=== PATIENT | male | born 1965 | race Caucasian/White ===

== ENCOUNTER 2017-08-29 14:04 | Inpatient (IN) | payer OTHER ==
--- NOTE | 2017-08-29 20:04 | HP ---
Admission ROS S - [facility] Chief Complaint: I WANT TO GO TO REHAB Allergies/Adverse Reactions: Allergies Allergy/AdvReac Type Severity Reaction Status Date / Time shellfish derived Allergy Severe Swelling Verified 08/29/17 18:12 No Known Drug Allergies Allergy Verified 08/29/17 18:12 History of Present Illness: 52 YEARS OLD MALE WITH LONG HISTORY OF XANAX NICOTINE DEPENDENCE HAS HEPATITIS C GERD HYPERTENSION HYPERLIPIDEMIA HEART ATTACK 2012 DEPRESSION METHADONE MAINTENANCE PROGRAM 60 MG PO DAILY IS ADMITTED TO REHAB Exam Limitations: No Limitations - Ebola screening Have you traveled outside of the country in the last 21 days: No Have you had contact with anyone from an Ebola affected area: No Have you been sick,other than usual withdrawal symptoms: No Do you have a fever: No - Review of Systems Constitutional: Weight Stable EENT: reports: No Symptoms Reported Respiratory: reports: No Symptoms reported Cardiac: reports: No Symptoms Reported, Other (HEART ATTACK 2012 CARDIAC STENT X 2) GI: reports: Indigestion : reports: No Symptoms Reported Musculoskeletal: reports: No Symptoms Reported Integumentary: reports: No Symptoms Reported Neuro: reports: No Symptoms reported Endocrine: reports: No Symptoms Reported Hematology: reports: No Symptoms Reported Psychiatric: reports: Judgement Intact, Orientated x3, Depressed Other Systems: Reviewed and Negative Patient History - Patient Medical History Hx Anemia: No Hx Asthma: No Hx Chronic Obstructive Pulmonary Disease (COPD): No Hx Cancer: No Hx Cardiac Disorders: Yes (CAD) Hx Congestive Heart Failure: No Hx Hypertension: Yes Hx Hypercholesterolemia: Yes (on med) Hx Pacemaker: No HX Cerebrovascular Accident: No Hx Seizures: No Hx Dementia: No Hx Diabetes: No Hx Gastrointestinal Disorders: Yes Hx Liver Disease: No Hx Genitourinary Disorders: No Hx Sexually Transmitted Disorders: No Hx Renal Disease (ESRD): No Hx Thyroid Disease: No Hx Human Immunodeficiency Virus (HIV): No (last 02/17/15 to 02/21/15 negative) Hx Hepatitis C: Yes Hx Depression: Yes Hx Suicide Attempt: No (denies) Hx Bipolar Disorder: No Hx Schizophrenia: No - Patient Surgical History Past Surgical History: Yes Hx Neurologic Surgery: No Hx Cataract Extraction: No Hx Cardiac Surgery: Yes (2010- [facility] - 2 stents ) Hx Lung Surgery: No Hx Breast Surgery: No Hx Breast Biopsy: No Hx Abdominal Surgery: No Hx Appendectomy: No Hx Cholecystectomy: No Hx Genitourinary Surgery: No Hx Orthopedic Surgery: No Anesthesia Reaction: No - PPD History Previous Implant?: Yes Documented Results: Negative w/o proof Implanted On Prior R Admission?: No Date: 07/18/16 Results: negative PPD to be Administered?: Yes - Smoking Cessation Smoking history: Current every day smoker Have you smoked in the past 12 months: Yes Aproximately how many cigarettes per day: 20 Cigars Per Day: 0 Hx Chewing Tobacco Use: No Initiated information on smoking cessation: Yes 'Breaking Loose' booklet given: 08/29/17 - Substance & Tx. History Hx Alcohol Use: No Hx Substance Use: Yes Substance Use Type: Tranquilizers Hx Substance Use Treatment: Yes (08/2017 [facility]) - Substances Abused Alprazolam (Xanax) Route: Oral Frequency: 3-6 times per week Amount used: 2 MG Age of first use: 27 Date of Last Use: 08/21/17 Family Disease History - Family Disease History Family Disease History: Heart Disease: Father (s/p mi at age 44), Mother (qadruple bypass ), Other: Sister (HIV) Admission Physical Exam S - Vital Signs Vital Signs: Vital Signs - 24 hr 08/29/17 08/29/17 17:27 17:43 Temperature 96 F L 97.8 F Pulse Rate 74 88 Respiratory 20 20 Rate Blood Pressure 114/63 161/89 - Physical General Appearance: Yes: No Apparent Distress, Appropriately Dressed, Obese HEENTM: Yes: Hearing grossly Normal, Normal ENT Inspection, Normocephalic, Normal Voice Respiratory: Yes: Chest Non-Tender, Lungs Clear, Normal Breath Sounds, No Respiratory Distress, No Accessory Muscle Use Neck: Yes: Supple, Trachea in good position Breast: Yes: Breasts Symetrical Cardiology: Yes: Regular Rhythm, Regular Rate, S1, S2 Abdominal: Yes: Normal Bowel Sounds, Non Tender, Soft Genitourinary: Yes: Within Normal Limits Back: Yes: Normal Inspection Musculoskeletal: Yes: full range of Motion, Gait Steady, Muscle Pain (LEFT LEG) Extremities: Yes: Normal Inspection, Normal Range of Motion, Non-Tender Neurological: Yes: Fully Oriented, Alert, Motor Strength 5/5, Normal Response, Depressed Affect Integumentary: Yes: Warm Lymphatic: Yes: Within Normal Limits - Diagnostic (1) Hypertension Current Visit: Yes Status: Chronic Qualifiers: Hypertension type: essential hypertension Qualified Code(s): I10 - Essential (primary) hypertension (2) GERD (gastroesophageal reflux disease) Current Visit: Yes Status: Chronic Qualifiers: Esophagitis presence: without esophagitis Qualified Code(s): K21.9 - Gastro -esophageal reflux disease without esophagitis (3) History of heart attack Current Visit: Yes Status: Resolved (4) Alcohol dependence with uncomplicated withdrawal Current Visit: Yes Status: Acute (5) Nicotine dependence Current Visit: Yes Status: Acute Qualifiers: Nicotine product type: cigarettes Substance use status: in withdrawal Qualified Code(s): F17.213 - Nicotine dependence, cigarettes, with withdrawal (6) Depressive disorder Current Visit: Yes Status: Suspected (7) Hepatitis C Current Visit: Yes Status: Chronic Qualifiers: Viral hepatitis chronicity: unspecified Hepatic coma status: without hepatic coma Qualified Code(s): B19.20 - Unspecified viral hepatitis C without hepatic coma (8) Methadone maintenance therapy patient Current Visit: Yes Status: Chronic Comment: pt is on 60mg VERIFICATION PENDING Cleared for Admission [facility] - Detox or Rehab [facility] Level of Care: Observation Bed Detox Regimen/Protocol: Not Applicable Claeared for Rehab Admission: Yes [facility] Breath Alcohol Content Breath Alcohol Content: 0 Urine Drug Screen - Results Drug Screen Negative: No Urine Drug Screen Results: THC-Marijuana Inpatient Rehab Admission - Initial Determination Are CD services needed?: Yes Free of communicable disease: Yes Not in need of hospitalization: Yes - Rehab Admission Criteria Previous failed treatment: Yes Poor recovery environment: Yes Comorbidities: Yes Lacks judgement: No Patient is meeting Inpatient Rehab admission criteria:: Yes
[2017-08-29] MEDS ORDERED: MENTHOL/PHENOL 1 EACH UD MM PRN (20:10)
[2017-08-29] MEDS ORDERED: MAGNESIUM HYDROX 2400MG/30ML ORAL SUSPENSION 30 ML CUP PO PRN (20:10)
[2017-08-29] MEDS ORDERED: P-EPHED 60MG/TRIPROLIDI 2.5MG TABLET PO PRN (20:10)
[2017-08-29] MEDS ORDERED: NICOTINE POLACRILEX 2 MG GUM BUC PRN (20:10)
[2017-08-29] MEDS ORDERED: MAG HYDROX/AL HYDROX/SIMETH 30 ML UNIT-DOSE CUP PO PRN (20:10)
[2017-08-29] MEDS ORDERED: LOPERAMIDE HCL 2 MG CAPSULE PO PRN (20:10)
[2017-08-29] MEDS ORDERED: MAGNESIUM CITRATE 300 ML BOTTLE PO PRN (20:10)
[2017-08-29] MEDS ORDERED: ACETAMINOPHEN 325 MG TABLET (FP) PO PRN (20:10)
[2017-08-29] MEDS ORDERED: guaiFENesin/D-METHORPHAN HB 10 ML UNIT-DOSE CUPS PO PRN (20:10)
[2017-08-29] MEDS ORDERED: METHOCARBAMOL 500 MG TABLET PO PRN (20:12)
[2017-08-29] MEDS: THIAMINE HCL 100 MG TABLET (FP) PO SCH (23:09)
[2017-08-29] MEDS: ATORVASTATIN CA 40 MG TABLET (FP) PO SCH (23:09)
[2017-08-29 23:59] LABS: URINE APPEARANCE CLEAR; URINE BILIRUBIN NEGATIVE (NEGATIVE); URINE BLOOD NEGATIVE (NEGATIVE); URINE COLOR LTYELLOW; URINE GLUCOSE (UA) NEGATIVE (NEGATIVE); URINE KETONE NEGATIVE (NEGATIVE); URINE LEUK ESTERASE NEGATIVE (NEGATIVE); URINE NITRITE NEGATIVE (NEGATIVE); URINE PROTEIN NEGATIVE (NEGATIVE); URINE UROBILINOGEN NEGATIVE mg/dL (0.2-1.0)
[2017-08-30 00:01] VITALS: BMI 36.0
[2017-08-30] MEDS ORDERED: METHADONE HCL 10 MG TABLET PO ONE (08:23)
[2017-08-30] MEDS ORDERED: METHADONE 40 MG, METHADONE 20 MG PO ONE (08:45)
[2017-08-30] MEDS ORDERED: METHADONE HCL 10 MG TABLET ONE (09:06)
[2017-08-30] MEDS ORDERED: METHADONE HCL 40 MG DISPERSABLE TABLET ONE (09:06)
[2017-08-30] MEDS: PRENATAL VITAMINS W/ FOLIC ACID TABLET (FP) PO SCH (09:25)
[2017-08-30] MEDS: PANTOPRAZOLE 40 MG TABLET (FP) PO SCH (09:25)
[2017-08-30] MEDS: LISINOPRIL 5 MG TABLET (FP) PO SCH (09:25)
[2017-08-30] MEDS: ASPIRIN 81 MG CHEWABLE TABLETS PO SCH (09:25)
[2017-08-30] MEDS: NICOTINE 21 MG/24 HOURS TOPICAL PATCH TD SCH (09:25)
[2017-08-30 10:25] LABS: HEMATOCRIT 41.3 % (35.4-49); HEMOGLOBIN 13.2 GM/dL (11.7-16.9); MCH 28.1 pg (25.7-33.7); MEAN CELL VOLUME 87.9 fl (80-96); MEAN PLT VOLUME 9.9 fl (7.5-11.1); PLATELET COUNT 148 K/MM3 (134-434); RBC 4.69 M/mm3 (4.00-5.60)
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
[2017-08-30 10:38] LABS: CHLORIDE 103 mmol/L (98-107); POTASSIUM 3.7 mmol/L (3.5-5.1); SODIUM 140 mmol/L (136-145)
[2017-08-30 10:50] LABS: ALBUMIN 2.8 g/dl (3.4-5.0); ALK PHOS 93 U/L (45-117); ANION GAP 8 (8-16); BILIRUBIN,TOTAL 0.5 mg/dL (0.2-1.0); BLOOD UREA NITROGEN 15 mg/dL (7-18); CALCIUM 8.3 mg/dL (8.5-10.1); CO2 29 mmol/L (21-32); CREATININE 1.1 mg/dL (0.7-1.3); GLUCOSE,RANDOM 169 mg/dL (74-106); SGOT/AST 33 U/L (15-37); SGPT/ALT 58 U/L (12-78); TOT PROT 6.3 g/dl (6.4-8.2)
[2017-08-30] MEDS: CITALOPRAM HYDROBROMIDE 20 MG TABLET (FP) PO SCH (14:51)
[2017-08-30] MEDS: hydrOXYzine PAMOATE 50 MG CAPSULE (FP) PO PRN (14:52)
[2017-08-30] MEDS: THIAMINE HCL 100 MG TABLET (FP) PO SCH (22:15)
[2017-08-30] MEDS: ATORVASTATIN CA 40 MG TABLET (FP) PO SCH (22:15)
[2017-08-31] MEDS ORDERED: METHADONE HCL 40 MG DISPERSABLE TABLET ONE (04:13)
[2017-08-31] MEDS ORDERED: METHADONE HCL 10 MG TABLET ONE (04:13)
[2017-08-31] MEDS ORDERED: METHADONE HCL 40 MG DISPERSABLE TABLET PO SCH (06:00)
[2017-08-31] MEDS: METHADONE 40 MG, METHADONE 20 MG PO SCH (06:26)
[2017-08-31] MEDS: ASPIRIN 81 MG CHEWABLE TABLETS PO SCH (10:14)
[2017-08-31] MEDS: CITALOPRAM HYDROBROMIDE 20 MG TABLET (FP) PO SCH (10:14)
[2017-08-31] MEDS: PRENATAL VITAMINS W/ FOLIC ACID TABLET (FP) PO SCH (10:14)
[2017-08-31] MEDS: LISINOPRIL 5 MG TABLET (FP) PO SCH (10:14)
[2017-08-31] MEDS: NICOTINE 21 MG/24 HOURS TOPICAL PATCH TD SCH (10:14)
[2017-08-31] MEDS: PANTOPRAZOLE 40 MG TABLET (FP) PO SCH (10:15)
[2017-08-31] MEDS: hydrOXYzine PAMOATE 50 MG CAPSULE (FP) PO PRN ×2 (10:16→21:08)
[2017-08-31] MEDS: ATORVASTATIN CA 40 MG TABLET (FP) PO SCH (21:08)
[2017-08-31] MEDS: THIAMINE HCL 100 MG TABLET (FP) PO SCH (21:08)
[2017-09-01] MEDS ORDERED: METHADONE HCL 40 MG DISPERSABLE TABLET ONE (04:19)
[2017-09-01] MEDS ORDERED: METHADONE HCL 10 MG TABLET ONE (04:19)
[2017-09-01] MEDS: METHADONE 40 MG, METHADONE 20 MG PO SCH (06:46)
[2017-09-01] MEDS: PRENATAL VITAMINS W/ FOLIC ACID TABLET (FP) PO SCH (10:24)
[2017-09-01] MEDS: NICOTINE 21 MG/24 HOURS TOPICAL PATCH TD SCH (10:25)
[2017-09-01] MEDS: ASPIRIN 81 MG CHEWABLE TABLETS PO SCH (10:25)
[2017-09-01] MEDS: CITALOPRAM HYDROBROMIDE 20 MG TABLET (FP) PO SCH (10:25)
[2017-09-01] MEDS: PANTOPRAZOLE 40 MG TABLET (FP) PO SCH (10:25)
[2017-09-01] MEDS: hydrOXYzine PAMOATE 50 MG CAPSULE (FP) PO PRN ×2 (10:26→15:59)
[2017-09-01] MEDS: LISINOPRIL 5 MG TABLET (FP) PO SCH (10:27)
[2017-09-01] MEDS: THIAMINE HCL 100 MG TABLET (FP) PO SCH (21:37)
[2017-09-01] MEDS: ATORVASTATIN CA 40 MG TABLET (FP) PO SCH (21:37)
[2017-09-02] MEDS ORDERED: METHADONE HCL 40 MG DISPERSABLE TABLET ONE (04:14)
[2017-09-02] MEDS ORDERED: METHADONE HCL 10 MG TABLET ONE (04:14)
[2017-09-02] MEDS: METHADONE 40 MG, METHADONE 20 MG PO SCH (06:30)
[2017-09-02] MEDS: ASPIRIN 81 MG CHEWABLE TABLETS PO SCH (10:23)
[2017-09-02] MEDS: NICOTINE 21 MG/24 HOURS TOPICAL PATCH TD SCH (10:23)
[2017-09-02] MEDS: PRENATAL VITAMINS W/ FOLIC ACID TABLET (FP) PO SCH (10:23)
[2017-09-02] MEDS: CITALOPRAM HYDROBROMIDE 20 MG TABLET (FP) PO SCH (10:23)
[2017-09-02] MEDS: PANTOPRAZOLE 40 MG TABLET (FP) PO SCH (10:23)
[2017-09-02] MEDS: hydrOXYzine PAMOATE 50 MG CAPSULE (FP) PO PRN ×2 (10:24→21:19)
[2017-09-02] MEDS: LISINOPRIL 5 MG TABLET (FP) PO SCH (10:59)
[2017-09-02] MEDS: ATORVASTATIN CA 40 MG TABLET (FP) PO SCH (21:19)
[2017-09-02] MEDS: THIAMINE HCL 100 MG TABLET (FP) PO SCH (21:19)
[2017-09-03] MEDS ORDERED: METHADONE HCL 10 MG TABLET ONE (04:18)
[2017-09-03] MEDS ORDERED: METHADONE HCL 40 MG DISPERSABLE TABLET ONE (04:18)
[2017-09-03] MEDS: METHADONE 40 MG, METHADONE 20 MG PO SCH (06:02)
[2017-09-03] MEDS: CITALOPRAM HYDROBROMIDE 20 MG TABLET (FP) PO SCH (10:10)
[2017-09-03] MEDS: PRENATAL VITAMINS W/ FOLIC ACID TABLET (FP) PO SCH (10:10)
[2017-09-03] MEDS: ASPIRIN 81 MG CHEWABLE TABLETS PO SCH (10:10)
[2017-09-03] MEDS: PANTOPRAZOLE 40 MG TABLET (FP) PO SCH (10:10)
[2017-09-03] MEDS: hydrOXYzine PAMOATE 50 MG CAPSULE (FP) PO PRN ×2 (10:12→21:51)
[2017-09-03] MEDS: NICOTINE 21 MG/24 HOURS TOPICAL PATCH TD SCH (10:13)
[2017-09-03] MEDS: LISINOPRIL 5 MG TABLET (FP) PO SCH (10:13)
[2017-09-03] MEDS: THIAMINE HCL 100 MG TABLET (FP) PO SCH (21:51)
[2017-09-03] MEDS: ATORVASTATIN CA 40 MG TABLET (FP) PO SCH (21:51)
[2017-09-04] MEDS ORDERED: METHADONE HCL 10 MG TABLET ONE (03:19)
[2017-09-04] MEDS ORDERED: METHADONE HCL 40 MG DISPERSABLE TABLET ONE (03:19)
[2017-09-04] MEDS: METHADONE 40 MG, METHADONE 20 MG PO SCH (06:13)
[2017-09-04] MEDS: LISINOPRIL 5 MG TABLET (FP) PO SCH (10:00)
[2017-09-04] MEDS: NICOTINE 21 MG/24 HOURS TOPICAL PATCH TD SCH (10:00)
[2017-09-04] MEDS: ASPIRIN 81 MG CHEWABLE TABLETS PO SCH (10:00)
[2017-09-04] MEDS: PANTOPRAZOLE 40 MG TABLET (FP) PO SCH (10:00)
[2017-09-04] MEDS: CITALOPRAM HYDROBROMIDE 20 MG TABLET (FP) PO SCH (10:00)
[2017-09-04] MEDS: PRENATAL VITAMINS W/ FOLIC ACID TABLET (FP) PO SCH (10:00)
[2017-09-04] MEDS: hydrOXYzine PAMOATE 50 MG CAPSULE (FP) PO PRN ×3 (10:01→21:51)
--- NOTE | 2017-09-04 14:50 | PN ---
Psychiatric Progress Note Vital Signs: Vital Signs Period Temp Pulse Resp BP Sys/Hendrickson Pulse Ox Last 24 Hr 98.3 F 71-80 -18 118-126/71-74 Date of Session: 09/04/17 Chief Complaint:: " I feel depressed" HPI: Patient addressing Sedative Dependence comorbid with Opoid Dependence on Agonist Therapy, Anxiety Disorder, Depressive Disorder and Substance-induced Anxiety Disorder ROS: GERD, Hep C, HTN, HLD, GA, Current Medications: Active Medications Generic Name Dose Route Start Last Admin Trade Name Freq PRN Reason Stop Dose Admin Acetaminophen 650 mg 08/29/17 20:10 Tylenol - PO Q4H PRN FEVER Al Hydroxide/Mg Hydroxide 30 ml 08/29/17 20:10 Mylanta Oral Suspension - PO Q6H PRN DYSPEPSIA Aspirin 81 mg 08/30/17 10:00 09/04/17 10:00 Asa - PO 81 mg DAILY ANITA Administration Atorvastatin Calcium 40 mg 08/29/17 22:00 09/03/17 21:51 Lipitor - PO 40 mg HS ANITA Administration Citalopram Hydrobromide 30 mg 09/05/17 10:00 Celexa - PO DAILY ANITA Eucalyptus/Menthol/Phenol/Sorbitol 1 each 08/29/17 20:10 Cepastat Lozenge - MM Q4H PRN SORE THROAT Guaifenesin 10 ml 08/29/17 20:10 Robitussin Dm - PO Q6H PRN COUGH Hydroxyzine Pamoate 50 mg 08/30/17 12:48 09/04/17 10:01 Vistaril - PO 50 mg Q4H PRN Administration ANXIETY Lisinopril 2.5 mg 08/30/17 10:00 09/04/17 10:00 Prinivil PO 2.5 mg DAILY ANITA Administration Loperamide HCl 4 mg 08/29/17 20:10 Imodium - PO Q6H PRN DIARRHEA Magnesium Citrate 300 ml 08/29/17 20:10 Citroma - PO Q48H PRN CONSTIPATION Magnesium Hydroxide 30 ml 08/29/17 20:10 Milk Of Magnesia - PO DAILY PRN CONSTIPATION Methadone HCl 40 mg/ Methadone 60 mg 08/31/17 06:00 09/04/17 06:13 HCl 20 mg PO 09/06/17 05:59 60 mg DAILY@0600 ANITA Administration Methocarbamol 500 mg 08/29/17 20:12 Robaxin - PO Q8H PRN BACK PAIN Nicotine 21 mg 08/30/17 10:00 09/04/17 10:00 Nicoderm Patch - TD 21 mg DAILY ANITA Administration Nicotine Polacrilex 2 mg 08/29/17 20:10 Nicorette Gum - BUC Q2H PRN NICOTINE REPLACEMENT RX Pantoprazole Sodium 40 mg 08/30/17 10:00 09/04/17 10:00 Protonix - PO 40 mg DAILY ANITA Administration Multivit/Folic Acid/Iron 1 tab 08/30/17 10:00 09/04/17 10:00 Vitamins (Sjr) - PO 1 tab DAILY ANITA Administration Pseudoephedrine/Triprolidine 1 combo 08/29/17 20:10 Actifed - PO TID PRN NASAL CONGESTION Thiamine HCl 100 mg 08/29/17 22:00 09/03/17 21:51 Vitamin B1 - PO 100 mg HS ANITA Administration Medication(s) Change(s): Increase Celexa dosage to 30 mg po daily Current Side Effect: No Lab tests ordered: Yes Lab tests reviewed: Yes Provider note:: Patient reports that he has been feeling depressed despite taking Celexa 20 mg po daily. Claims that his usual dose of Celexa is 30 mg/ day. Requests for medication to be order at that dose Total face to face time:: 25 Mental Status Exam - Mental Status Exam Alert and Oriented to: Time, Place, Person Cognitive Function: Fair Patient Appearance: Well Groomed Mood: Depressed Affect: Appropriate Patient Behavior: Cooperative Speech Pattern: Clear Voice Loudness: Normal Thought Process: Intact, Goal Oriented Thought Disorder: Not Present Hallucinations: Denies Suicidal Ideation: Denies Homicidal Ideation: Denies Insight/Judgement: Fair Sleep: Fair Appetite: Good Muscle strength/Tone: Normal Gait/Station: Normal Psychiatric Treatment Plan - Problem List (1) Sedative hypnotic or anxiolytic dependence Current Visit: Yes (2) Opioid dependence on agonist therapy Current Visit: No (3) Nicotine dependence Current Visit: Yes Qualifiers: Nicotine product type: cigarettes Substance use status: in withdrawal Qualified Code(s): F17.213 - Nicotine dependence, cigarettes, with withdrawal (4) Anxiety disorder Current Visit: Yes (5) Panic disorder with agoraphobia Current Visit: Yes (6) Depressive disorder Current Visit: Yes (7) MDD (major depressive disorder) Current Visit: Yes (8) Substance-induced anxiety disorder Current Visit: Yes (9) GERD (gastroesophageal reflux disease) Current Visit: Yes Qualifiers: Esophagitis presence: without esophagitis Qualified Code(s): K21.9 - Gastro -esophageal reflux disease without esophagitis (10) Hepatitis C Current Visit: Yes Qualifiers: Viral hepatitis chronicity: unspecified Hepatic coma status: without hepatic coma Qualified Code(s): B19.20 - Unspecified viral hepatitis C without hepatic coma (11) Hypertension Current Visit: Yes Qualifiers: Hypertension type: essential hypertension Qualified Code(s): I10 - Essential (primary) hypertension (12) History of heart attack Current Visit: Yes (13) CAD (coronary artery disease) Current Visit: No Qualifiers: Coronary Disease-Associated Artery/Lesion type: [place] artery [place] vs. transplanted heart: [place] heart Associated angina: with stable angina Qualified Code(s): I25.118 - Atherosclerotic heart disease of [place] coronary artery with other forms of angina pectoris (14) Hyperlipidemia Current Visit: Yes Initial treatment plan: 1) Discontinue Celexa 20 mg po daily. 2) Start Celexa 30 mg po daily. 3) Monitor progress
[2017-09-04] MEDS: THIAMINE HCL 100 MG TABLET (FP) PO SCH (21:51)
[2017-09-04] MEDS: ATORVASTATIN CA 40 MG TABLET (FP) PO SCH (21:51)
[2017-09-05] MEDS ORDERED: METHADONE HCL 10 MG TABLET ONE (04:21)
[2017-09-05] MEDS ORDERED: METHADONE HCL 40 MG DISPERSABLE TABLET ONE (04:22)
[2017-09-05] MEDS: METHADONE 40 MG, METHADONE 20 MG PO SCH (06:17)
[2017-09-05] MEDS: PANTOPRAZOLE 40 MG TABLET (FP) PO SCH (10:15)
[2017-09-05] MEDS: ASPIRIN 81 MG CHEWABLE TABLETS PO SCH (10:15)
[2017-09-05] MEDS: CITALOPRAM HYDROBROMIDE 10 MG TABLET (FP) PO SCH (10:16)
[2017-09-05] MEDS: LISINOPRIL 5 MG TABLET (FP) PO SCH (10:16)
[2017-09-05] MEDS: PRENATAL VITAMINS W/ FOLIC ACID TABLET (FP) PO SCH (10:16)
[2017-09-05] MEDS: NICOTINE 21 MG/24 HOURS TOPICAL PATCH TD SCH (10:16)
[2017-09-05] MEDS: hydrOXYzine PAMOATE 50 MG CAPSULE (FP) PO PRN ×2 (10:17→21:31)
[2017-09-05] MEDS: ATORVASTATIN CA 40 MG TABLET (FP) PO SCH (21:31)
[2017-09-05] MEDS: THIAMINE HCL 100 MG TABLET (FP) PO SCH (21:31)
[2017-09-06] MEDS ORDERED: METHADONE HCL 10 MG TABLET ONE (04:17)
[2017-09-06] MEDS ORDERED: METHADONE HCL 40 MG DISPERSABLE TABLET ONE (04:17)
[2017-09-06] MEDS: METHADONE 40 MG, METHADONE 20 MG PO SCH (06:38)
[2017-09-06] MEDS: PRENATAL VITAMINS W/ FOLIC ACID TABLET (FP) PO SCH (10:10)
[2017-09-06] MEDS: NICOTINE 21 MG/24 HOURS TOPICAL PATCH TD SCH (10:10)
[2017-09-06] MEDS: LISINOPRIL 5 MG TABLET (FP) PO SCH (10:11)
[2017-09-06] MEDS: ASPIRIN 81 MG CHEWABLE TABLETS PO SCH (10:11)
[2017-09-06] MEDS: CITALOPRAM HYDROBROMIDE 10 MG TABLET (FP) PO SCH (10:11)
[2017-09-06] MEDS: PANTOPRAZOLE 40 MG TABLET (FP) PO SCH (10:11)
[2017-09-06] MEDS: hydrOXYzine PAMOATE 50 MG CAPSULE (FP) PO PRN ×3 (10:12→21:28)
[2017-09-06] MEDS: THIAMINE HCL 100 MG TABLET (FP) PO SCH (21:28)
[2017-09-06] MEDS: ATORVASTATIN CA 40 MG TABLET (FP) PO SCH (21:28)
[2017-09-07] MEDS ORDERED: METHADONE HCL 10 MG TABLET ONE (04:20)
[2017-09-07] MEDS ORDERED: METHADONE HCL 40 MG DISPERSABLE TABLET ONE (04:21)
[2017-09-07] MEDS: METHADONE 40 MG, METHADONE 20 MG PO SCH (05:59)
[2017-09-07] MEDS: LISINOPRIL 5 MG TABLET (FP) PO SCH (10:10)
[2017-09-07] MEDS: NICOTINE 21 MG/24 HOURS TOPICAL PATCH TD SCH (10:10)
[2017-09-07] MEDS: PANTOPRAZOLE 40 MG TABLET (FP) PO SCH (10:10)
[2017-09-07] MEDS: PRENATAL VITAMINS W/ FOLIC ACID TABLET (FP) PO SCH (10:10)
[2017-09-07] MEDS: ASPIRIN 81 MG CHEWABLE TABLETS PO SCH (10:10)
[2017-09-07] MEDS: hydrOXYzine PAMOATE 50 MG CAPSULE (FP) PO PRN ×2 (10:11→22:14)
[2017-09-07] MEDS: CITALOPRAM HYDROBROMIDE 10 MG TABLET (FP) PO SCH (11:00)
[2017-09-07] MEDS: ATORVASTATIN CA 40 MG TABLET (FP) PO SCH (21:39)
[2017-09-07] MEDS: THIAMINE HCL 100 MG TABLET (FP) PO SCH (21:39)
[2017-09-08] MEDS ORDERED: METHADONE HCL 10 MG TABLET ONE (03:22)
[2017-09-08] MEDS ORDERED: METHADONE HCL 40 MG DISPERSABLE TABLET ONE (03:22)
[2017-09-08] MEDS: METHADONE 40 MG, METHADONE 20 MG PO SCH (06:02)
[2017-09-08] MEDS: ASPIRIN 81 MG CHEWABLE TABLETS PO SCH (10:23)
[2017-09-08] MEDS: PANTOPRAZOLE 40 MG TABLET (FP) PO SCH (10:23)
[2017-09-08] MEDS: LISINOPRIL 5 MG TABLET (FP) PO SCH (10:23)
[2017-09-08] MEDS: PRENATAL VITAMINS W/ FOLIC ACID TABLET (FP) PO SCH (10:23)
[2017-09-08] MEDS: NICOTINE 21 MG/24 HOURS TOPICAL PATCH TD SCH (10:23)
[2017-09-08] MEDS: hydrOXYzine PAMOATE 50 MG CAPSULE (FP) PO PRN ×3 (10:23→21:45)
[2017-09-08] MEDS: CITALOPRAM HYDROBROMIDE 10 MG TABLET (FP) PO SCH (10:23)
[2017-09-08] MEDS: THIAMINE HCL 100 MG TABLET (FP) PO SCH (21:45)
[2017-09-08] MEDS: ATORVASTATIN CA 40 MG TABLET (FP) PO SCH (21:46)
[2017-09-09] MEDS ORDERED: METHADONE HCL 40 MG DISPERSABLE TABLET ONE (02:59)
[2017-09-09] MEDS ORDERED: METHADONE HCL 10 MG TABLET ONE (02:59)
[2017-09-09] MEDS: METHADONE 40 MG, METHADONE 20 MG PO SCH (06:18)
[2017-09-09] MEDS: NICOTINE 21 MG/24 HOURS TOPICAL PATCH TD SCH (10:01)
[2017-09-09] MEDS: CITALOPRAM HYDROBROMIDE 10 MG TABLET (FP) PO SCH (10:01)
[2017-09-09] MEDS: ASPIRIN 81 MG CHEWABLE TABLETS PO SCH (10:01)
[2017-09-09] MEDS: PRENATAL VITAMINS W/ FOLIC ACID TABLET (FP) PO SCH (10:02)
[2017-09-09] MEDS: PANTOPRAZOLE 40 MG TABLET (FP) PO SCH (10:02)
[2017-09-09] MEDS: LISINOPRIL 5 MG TABLET (FP) PO SCH (10:02)
[2017-09-09] MEDS: hydrOXYzine PAMOATE 50 MG CAPSULE (FP) PO PRN ×2 (10:03→21:57)
[2017-09-09] MEDS ORDERED: FLU VACCINE QUAD 60 MCG/0.5 ML (MDV 17-18) IM ONE (12:00)
[2017-09-09] MEDS: THIAMINE HCL 100 MG TABLET (FP) PO SCH (21:56)
[2017-09-09] MEDS: ATORVASTATIN CA 40 MG TABLET (FP) PO SCH (21:56)
[2017-09-10] MEDS ORDERED: METHADONE HCL 40 MG DISPERSABLE TABLET ONE (02:46)
[2017-09-10] MEDS ORDERED: METHADONE HCL 10 MG TABLET ONE (02:46)
[2017-09-10] MEDS: METHADONE 40 MG, METHADONE 20 MG PO SCH (06:11)
[2017-09-10] MEDS: NICOTINE 21 MG/24 HOURS TOPICAL PATCH TD SCH (09:57)
[2017-09-10] MEDS: PRENATAL VITAMINS W/ FOLIC ACID TABLET (FP) PO SCH (09:57)
[2017-09-10] MEDS: PANTOPRAZOLE 40 MG TABLET (FP) PO SCH (09:57)
[2017-09-10] MEDS: LISINOPRIL 5 MG TABLET (FP) PO SCH (09:57)
[2017-09-10] MEDS: ASPIRIN 81 MG CHEWABLE TABLETS PO SCH (09:57)
[2017-09-10] MEDS: CITALOPRAM HYDROBROMIDE 10 MG TABLET (FP) PO SCH (09:57)
[2017-09-10] MEDS: hydrOXYzine PAMOATE 50 MG CAPSULE (FP) PO PRN ×2 (09:58→22:02)
[2017-09-10] MEDS: THIAMINE HCL 100 MG TABLET (FP) PO SCH (22:01)
[2017-09-10] MEDS: ATORVASTATIN CA 40 MG TABLET (FP) PO SCH (22:01)
[2017-09-11] MEDS ORDERED: METHADONE HCL 10 MG TABLET ONE (03:56)
[2017-09-11] MEDS ORDERED: METHADONE HCL 40 MG DISPERSABLE TABLET ONE (03:56)
[2017-09-11] MEDS: METHADONE 40 MG, METHADONE 20 MG PO SCH (06:06)
[2017-09-11] MEDS: hydrOXYzine PAMOATE 50 MG CAPSULE (FP) PO PRN ×2 (10:20→21:32)
[2017-09-11] MEDS: ASPIRIN 81 MG CHEWABLE TABLETS PO SCH (10:20)
[2017-09-11] MEDS: CITALOPRAM HYDROBROMIDE 10 MG TABLET (FP) PO SCH (10:20)
[2017-09-11] MEDS: PANTOPRAZOLE 40 MG TABLET (FP) PO SCH (10:21)
[2017-09-11] MEDS: NICOTINE 21 MG/24 HOURS TOPICAL PATCH TD SCH (10:21)
[2017-09-11] MEDS: PRENATAL VITAMINS W/ FOLIC ACID TABLET (FP) PO SCH (10:21)
[2017-09-11] MEDS: LISINOPRIL 5 MG TABLET (FP) PO SCH (10:21)
[2017-09-11] MEDS: ATORVASTATIN CA 40 MG TABLET (FP) PO SCH (21:31)
[2017-09-11] MEDS: THIAMINE HCL 100 MG TABLET (FP) PO SCH (21:32)
[2017-09-12] MEDS ORDERED: METHADONE HCL 40 MG DISPERSABLE TABLET ONE (04:03)
[2017-09-12] MEDS ORDERED: METHADONE HCL 10 MG TABLET ONE (04:03)
[2017-09-12] MEDS: METHADONE 40 MG, METHADONE 20 MG PO SCH (06:15)
[2017-09-12] MEDS: hydrOXYzine PAMOATE 50 MG CAPSULE (FP) PO PRN (10:10)
[2017-09-12] MEDS: LISINOPRIL 5 MG TABLET (FP) PO SCH (10:11)
[2017-09-12] MEDS: CITALOPRAM HYDROBROMIDE 10 MG TABLET (FP) PO SCH (10:11)
[2017-09-12] MEDS: PANTOPRAZOLE 40 MG TABLET (FP) PO SCH (10:11)
[2017-09-12] MEDS: ASPIRIN 81 MG CHEWABLE TABLETS PO SCH (10:11)
[2017-09-12] MEDS: NICOTINE 21 MG/24 HOURS TOPICAL PATCH TD SCH (10:12)
[2017-09-12] MEDS: PRENATAL VITAMINS W/ FOLIC ACID TABLET (FP) PO SCH (10:13)
[2017-09-12] MEDS: THIAMINE HCL 100 MG TABLET (FP) PO SCH (21:57)
[2017-09-12] MEDS: ATORVASTATIN CA 40 MG TABLET (FP) PO SCH (21:57)
[2017-09-13] MEDS ORDERED: METHADONE HCL 40 MG DISPERSABLE TABLET ONE (04:04)
[2017-09-13] MEDS ORDERED: METHADONE HCL 10 MG TABLET ONE (04:04)
[2017-09-13] MEDS ORDERED: METHADONE 40 MG, METHADONE 20 MG PO SCH (06:00)
[2017-09-13 06:55] VITALS: BP 148/76; PULSE 62; TEMP 97.6
--- NOTE | 2017-09-13 09:30 | PN ---
Psychiatric Progress Note Vital Signs: Vital Signs Period Temp Pulse Resp BP Sys/Hendrickson Pulse Ox Last 24 Hr 97.6 F 62-74 18-20 122-148/71-76 Date of Session: 09/13/17 Chief Complaint:: Discharge Note HPI: Patient addressing Sedative Dependence comorbid with Opoid Dependence, Nicotine Dependence, Anxiety Disorder, Depressive Disorder and Substance- induced Anxiety Disorder ROS: GERD, Hep C, HTN, HLD, S/P CT were medically managed Current Medications: Active Medications Generic Name Dose Route Start Last Admin Trade Name Freq PRN Reason Stop Dose Admin Acetaminophen 650 mg 08/29/17 20:10 Tylenol - PO Q4H PRN FEVER Al Hydroxide/Mg Hydroxide 30 ml 08/29/17 20:10 Mylanta Oral Suspension - PO Q6H PRN DYSPEPSIA Aspirin 81 mg 08/30/17 10:00 09/12/17 10:11 Asa - PO 81 mg DAILY ANITA Administration Atorvastatin Calcium 40 mg 08/29/17 22:00 09/12/17 21:57 Lipitor - PO 40 mg HS ANITA Administration Citalopram Hydrobromide 30 mg 09/05/17 10:00 09/12/17 10:11 Celexa - PO 30 mg DAILY ANITA Administration Eucalyptus/Menthol/Phenol/Sorbitol 1 each 08/29/17 20:10 Cepastat Lozenge - MM Q4H PRN SORE THROAT Guaifenesin 10 ml 08/29/17 20:10 Robitussin Dm - PO Q6H PRN COUGH Hydroxyzine Pamoate 50 mg 08/30/17 12:48 09/12/17 10:10 Vistaril - PO 50 mg Q4H PRN Administration ANXIETY Lisinopril 2.5 mg 08/30/17 10:00 09/12/17 10:11 Prinivil PO 2.5 mg DAILY ANITA Administration Loperamide HCl 4 mg 08/29/17 20:10 Imodium - PO Q6H PRN DIARRHEA Magnesium Citrate 300 ml 08/29/17 20:10 Citroma - PO Q48H PRN CONSTIPATION Magnesium Hydroxide 30 ml 08/29/17 20:10 Milk Of Magnesia - PO DAILY PRN CONSTIPATION Methadone HCl 40 mg/ Methadone 60 mg 09/13/17 06:00 09/13/17 06:06 HCl 20 mg PO 09/20/17 05:59 60 mg DAILY@0600 ANITA Administration Methocarbamol 500 mg 08/29/17 20:12 Robaxin - PO Q8H PRN BACK PAIN Nicotine 21 mg 08/30/17 10:00 09/12/17 10:12 Nicoderm Patch - TD Not Given DAILY ANITA Nicotine Polacrilex 2 mg 08/29/17 20:10 Nicorette Gum - BUC Q2H PRN NICOTINE REPLACEMENT RX Pantoprazole Sodium 40 mg 08/30/17 10:00 09/12/17 10:11 Protonix - PO 40 mg DAILY ANITA Administration Multivit/Folic Acid/Iron 1 tab 08/30/17 10:00 09/12/17 10:13 Vitamins (Sjr) - PO 1 tab DAILY ANITA Administration Pseudoephedrine/Triprolidine 1 combo 08/29/17 20:10 Actifed - PO TID PRN NASAL CONGESTION Thiamine HCl 100 mg 08/29/17 22:00 09/12/17 21:57 Vitamin B1 - PO 100 mg HS ANITA Administration Current Side Effect: No Lab tests ordered: Yes Lab tests reviewed: Yes Provider note:: Patient has complete this program today. He has met his treatment goals and will continue to address his issues in outpatient treatment at [facility]. Told play writer that from his participation in this program, he has learned the importance of making meetings and have a sponsor. He responded well to Celexa 30 mg po daily. Script for 30 days supply of that medication is electronically transmitted to [address] at [address] [place] [address] [phone]. He is stable for discharge today Total face to face time:: 35 Mental Status Exam - Mental Status Exam Alert and Oriented to: Time, Place, Person Cognitive Function: Fair Patient Appearance: Well Groomed Mood: Hopeful, Euthymic Affect: Appropriate Patient Behavior: Cooperative Speech Pattern: Clear, Artificially Ventilated Voice Loudness: Limited Variation Thought Process: Goal Oriented Thought Disorder: Not Present Hallucinations: Denies Suicidal Ideation: Denies Homicidal Ideation: Denies Insight/Judgement: Fair Sleep: Fair Appetite: Good Muscle strength/Tone: Normal Gait/Station: Normal Psychiatric Treatment Plan - Problem List (1) Sedative hypnotic or anxiolytic dependence Current Visit: Yes (2) Opioid dependence on agonist therapy Current Visit: No (3) Nicotine dependence Current Visit: Yes Qualifiers: Nicotine product type: cigarettes Substance use status: in withdrawal Qualified Code(s): F17.213 - Nicotine dependence, cigarettes, with withdrawal (4) Anxiety disorder Current Visit: Yes (5) Panic disorder with agoraphobia Current Visit: Yes (6) Depressive disorder Current Visit: Yes (7) MDD (major depressive disorder) Current Visit: Yes (8) Substance-induced anxiety disorder Current Visit: Yes (9) GERD (gastroesophageal reflux disease) Current Visit: Yes Qualifiers: Esophagitis presence: without esophagitis Qualified Code(s): K21.9 - Gastro -esophageal reflux disease without esophagitis (10) Hepatitis C Current Visit: Yes Qualifiers: Viral hepatitis chronicity: unspecified Hepatic coma status: without hepatic coma Qualified Code(s): B19.20 - Unspecified viral hepatitis C without hepatic coma (11) Hypertension Current Visit: Yes Qualifiers: Hypertension type: essential hypertension Qualified Code(s): I10 - Essential (primary) hypertension (12) History of heart attack Current Visit: Yes (13) CAD (coronary artery disease) Current Visit: No Qualifiers: Coronary Disease-Associated Artery/Lesion type: [place] artery [place] vs. transplanted heart: [place] heart Associated angina: with stable angina Qualified Code(s): I25.118 - Atherosclerotic heart disease of [place] coronary artery with other forms of angina pectoris (14) Hyperlipidemia Current Visit: Yes Initial treatment plan: Patient is discharged today and referred to [facility] for outpatient treatment
[2017-09-13] MEDS: PRENATAL VITAMINS W/ FOLIC ACID TABLET (FP) PO SCH (09:56)
[2017-09-13] MEDS: CITALOPRAM HYDROBROMIDE 10 MG TABLET (FP) PO SCH (09:56)
[2017-09-13] MEDS: PANTOPRAZOLE 40 MG TABLET (FP) PO SCH (09:57)
[2017-09-13] MEDS: NICOTINE 21 MG/24 HOURS TOPICAL PATCH TD SCH (09:57)
[2017-09-13] MEDS: ASPIRIN 81 MG CHEWABLE TABLETS PO SCH (09:57)
[2017-09-13] MEDS: hydrOXYzine PAMOATE 50 MG CAPSULE (FP) PO PRN (09:58)
[2017-09-13] MEDS: LISINOPRIL 5 MG TABLET (FP) PO SCH (09:59)
== END 2017-09-13 10:10 | disposition home or self-care (01) | DRG 772 ==
LOC: YASAS 14:04 → Y3W 18:12
PROVIDERS: ADMIT Psychiatry & Neurology Psychiatry; ATTEND Psychiatry & Neurology Psychiatry
PROC: HZ42ZZZ Group Counseling for Substance Abuse Treatment, Cognitive-Behavioral (ICD-10-PCS; principal; 2017-08-29)
DX: F13.20 Sedative, hypnotic or anxiolytic dependence, uncomplicated (principal); F11.20 Opioid dependence, uncomplicated; F17.213 Nicotine dependence, cigarettes, with withdrawal; F41.9 Anxiety disorder, unspecified; F40.01 Agoraphobia with panic disorder; F32.9 Major depressive disorder, single episode, unspecified; F19.280 Other psychoactive substance dependence with psychoactive substance-induced anxiety disorder; K21.9 Gastro-esophageal reflux disease without esophagitis; B19.20 Unspecified viral hepatitis C without hepatic coma; I10 Essential (primary) hypertension; I25.118 Atherosclerotic heart disease of native coronary artery with other forms of angina pectoris; I25.2 Old myocardial infarction; E78.5 Hyperlipidemia, unspecified; Z91.013 Allergy to seafood; Z95.5 Presence of coronary angioplasty implant and graft
CPT/HCPCS: 36415; 80053; 81003; 82962; 85027; 86593; 87389; 90688

== ENCOUNTER 2019-03-21 14:53 | Inpatient (IN) | payer OTHER ==
[2019-03-21 15:39] VITALS: BMI 34.6
--- NOTE | 2019-03-21 17:09 | HP ---
CIWA Score - Admission Criteria OASAS Guidelines: Admission for Medically Managed Detox: Requires at least one of the followin. CIWA greater than 12 2. Seizures within the past 24 hours 3. Delirium tremens within the past 24 hours 4. Hallucinations within the past 24 hours 5. Acute intervention needed for co occurring medical disorder 6. Acute intervention needed for co occurring psychiatric disorder 7. Severe withdrawal that cannot be handled at a lower level of care (continued vomiting, continued diarrhea, abnormal vital signs) requiring intravenous medication and/or fluids 8. Admission ROS [facility] Chief Complaint: rehab from benzos, crack cocaine, heroin Allergies/Adverse Reactions: Allergies Allergy/AdvReac Type Severity Reaction Status Date / Time shellfish derived Allergy Severe Swelling Verified 03/21/19 15:10 No Known Drug Allergies Allergy Verified 03/21/19 15:10 History of Present Illness: 53 y/o M with PMH CAD s/p [place] w/ CABG (2005; 2 stents), hep c (not tx), HTN, HLD , anxiety, panic disorder, agoraphobia, who presents for rehab from benzos, heroin, and crack cocaine. Per pt, he was just at [facility] to complete his detox , which ended today. Was sent here after for rehab. Was using benzos (xanax) 3x a week, 2 mg at a time. Last use 7 days ago. Uses them because it makes him feel "relaxed." Has been using since age 27 Heroin last used 5 days ago; 2 bags via IVDA (RUE, b/l antecubital fossa), no hx endocarditis, cellulitis or abscesses. was abstinent for 10 yrs, but started using again 7 months ago. Is part of [facility] MTD program. On 120mg qd. Has been there for 2.5yrs. 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 PMH: as above PsxH: CABG as above meds: singulair, lopressor, lisinopril, plavix, lipitor, asa, protonix, celexa used to be on lasix but self d/c d/t continued urination allergies: shellfish FH: father - [place] age 43. mother - [place]; age 82 SH: rents a room from his sister. smokes 1/2 ppd x since age 19. drug use as above - Ebola screening Have you traveled outside of the country in the last 21 days: No Have you had contact with anyone from an Ebola affected area: No Have you been sick,other than usual withdrawal symptoms: No Do you have a fever: No - Review of Systems Constitutional: No Symptoms Reported EENT: reports: No Symptoms Reported Respiratory: reports: No Symptoms reported Cardiac: reports: No Symptoms Reported GI: reports: No Symptoms Reported : reports: No Symptoms Reported Musculoskeletal: reports: No Symptoms Reported Integumentary: reports: No Symptoms Reported Neuro: reports: No Symptoms reported Endocrine: reports: No Symptoms Reported Hematology: reports: No Symptoms Reported Psychiatric: reports: Orientated x3 Patient History - Patient Medical History Hx Anemia: No Hx Asthma: No Hx Chronic Obstructive Pulmonary Disease (COPD): No Hx Cancer: No Hx Cardiac Disorders: Yes (CABG, [place] 2 stents) Hx Congestive Heart Failure: No Hx Hypertension: Yes Hx Hypercholesterolemia: Yes (on med) Hx Pacemaker: No HX Cerebrovascular Accident: No Hx Seizures: No Hx Dementia: No Hx Diabetes: No Hx Gastrointestinal Disorders: No Hx Liver Disease: No Hx Genitourinary Disorders: No Hx Sexually Transmitted Disorders: No Hx Renal Disease (ESRD): No Hx Thyroid Disease: No Hx Human Immunodeficiency Virus (HIV): No (last 02/17/15 to 02/21/15 negative) Hx Hepatitis C: Yes (not tx) Hx Depression: No Hx Suicide Attempt: No Hx Bipolar Disorder: No Hx Schizophrenia: No Other Medical History: anxiety, panic disorder, agoraphobia - Patient Surgical History Past Surgical History: Yes Hx Neurologic Surgery: No Hx Cataract Extraction: No Hx Cardiac Surgery: Yes ( ptca - 2 stents ) Hx Lung Surgery: No Hx Breast Surgery: No Hx Breast Biopsy: No Hx Abdominal Surgery: No Hx Appendectomy: No Hx Cholecystectomy: No Hx Genitourinary Surgery: No Hx Section: No Hx Orthopedic Surgery: No Anesthesia Reaction: No - PPD History Documented Results: Negative w/o proof Date: 08/31/17 Results: negative PPD to be Administered?: Yes - Reproductive History Patient is a Female of Child Bearing Age (11 -55 yrs old): No - Smoking Cessation Smoking history: Current every day smoker Have you smoked in the past 12 months: Yes Aproximately how many cigarettes per day: 20 Cigars Per Day: 0 Hx Chewing Tobacco Use: No Initiated information on smoking cessation: Yes 'Breaking Loose' booklet given: 03/21/19 - Substance & Tx. History Hx Alcohol Use: No Substance Use Type: Cocaine, Heroin Hx Substance Use Treatment: Yes ([facility] recent . [facility] previously 2016) - Substances abused Heroin Substance route: Injection Frequency: Daily Amount used: 2 bags Age of first use: 19 Date of last use: 03/16/19 Alcohol Date of last use: 03/16/19 Crack Substance route: Injection Frequency: Daily Amount used: $20 dollars Age of first use: 19 Date of last use: 03/16/19 Alprazolam (Xanax) Substance route: Oral Frequency: 3-6 times per week Amount used: 1 stick Age of first use: 27 Date of last use: 03/14/19 Family Disease History - Family Disease History Family Disease History: Heart Disease: Father (s/p mi at age 44), Mother (quadruple bypass ), Other: Sister (HIV) Admission Physical Exam S - Vital Signs Vital Signs: Vital Signs - 24 hr 03/21/19 15:09 Temperature 98.4 F Pulse Rate 55 L Respiratory 18 Rate Blood Pressure 123/71 - Physical General Appearance: Yes: Within Normal Limits HEENTM: Yes: Within Normal Limits, Hearing grossly Normal Respiratory: Yes: Lungs Clear Neck: Yes: Supple Breast: Yes: Breast Exam Deferred Cardiology: Yes: Regular Rhythm, Regular Rate, S1, S2 Abdominal: Yes: Within Normal Limits, Flat, Soft Genitourinary: Yes: Within Normal Limits Back: Yes: Within Normal Limits Musculoskeletal: Yes: full range of Motion Extremities: Yes: Other (+track bryson UE) Neurological: Yes: rubber goods tester water II-XII NML intact Integumentary: Yes: Dry, Warm Lymphatic: Yes: Within Normal Limits - Diagnostic (1) Cocaine use disorder Current Visit: Yes Status: Chronic (2) Opiate misuse Current Visit: Yes Status: Chronic (3) Moderate benzodiazepine use disorder Current Visit: Yes Status: Chronic (4) IVDU (intravenous drug user) Current Visit: Yes Status: Chronic (5) Agoraphobia Current Visit: Yes Status: Chronic (6) Anxiety disorder Current Visit: Yes Status: Chronic (7) Hepatitis C Current Visit: Yes Status: Chronic Qualifiers: Viral hepatitis chronicity: unspecified Hepatic coma status: without hepatic coma Qualified Code(s): B19.20 - Unspecified viral hepatitis C without hepatic coma (8) Hyperlipidemia Current Visit: Yes Status: Chronic (9) Hypertension Current Visit: Yes Status: Chronic Qualifiers: Hypertension type: essential hypertension Qualified Code(s): I10 - Essential (primary) hypertension Cleared for Admission [facility] - Detox or Rehab Detox Regimen/Protocol: Not Applicable Claeared for Rehab Admission: Yes Breathalyzer - Breathalyzer Breathalyzer: 0 Urine Drug Screen - Test Device Lot number: [id number] Expiration date: 12/11/20 - Control Is test valid?: Yes - Results Drug screen NEGATIVE: No Urine drug screen results: FEN-Fentanyl, MTD-Methadone, BZO-Benzodiazepines Inpatient Rehab Admission - Rehab Decision to Admit Inpatient rehab admission?: Yes - Initial Determination Are CD services needed?: Yes Free of communicable disease: Yes Not in need of hospitalization: Yes - Rehab Admission Criteria Previous failed treatment: Yes Poor recovery environment: Yes Comorbidities: Yes Lacks judgement: No Patient is meeting Inpatient Rehab admission criteria:: Yes
--- NOTE | 2019-03-21 17:22 | PN ---
Teaching Attending Note Name of Resident: Alejandra Pond ATTENDING PHYSICIAN STATEMENT I saw and evaluated the patient. I reviewed the resident's note and discussed the case with the resident. I agree with the resident's findings and plan as documented. SUBJECTIVE: 53 yo with CAD/[place]/stent/CABG 2005 and HCV not treated, anxiety, here for rehab after completing detox for alcohol/benzo/heroin. In a methadone MAT. PCP- Was using benzo few times a week, heroin 2 bags IV/day. using crack cocaine OBJECTIVE: Vital Signs - 24 hr 03/21/19 15:09 Temperature 98.4 F Pulse Rate 55 L Respiratory 18 Rate Blood Pressure 123/71 alert and oriented not tremulous track bryson a/p: Pt here for rehab after completing detox.
[2019-03-21] MEDS ORDERED: P-EPHED 60MG/TRIPROLIDI 2.5MG TABLET PO PRN (17:36)
[2019-03-21] MEDS ORDERED: LOPERAMIDE HCL 2 MG CAPSULE PO PRN (17:36)
[2019-03-21] MEDS ORDERED: MAG HYDROX/AL HYDROX/SIMETH 30 ML UNIT-DOSE CUP PO PRN (17:36)
[2019-03-21] MEDS ORDERED: guaiFENesin 200 MG/10 ML 10 ML UNIT-DOSE CUPS PO PRN (17:36)
[2019-03-21] MEDS ORDERED: MAGNESIUM HYDROX 2400MG/30ML ORAL SUSPENSION 30 ML CUP PO PRN (17:36)
[2019-03-21] MEDS ORDERED: MAGNESIUM CITRATE 300 ML BOTTLE PO PRN (17:36)
[2019-03-21] MEDS ORDERED: MENTHOL/PHENOL 1 EACH UD MM PRN (17:36)
[2019-03-21] MEDS ORDERED: NICOTINE POLACRILEX 2 MG GUM BC PRN (17:37)
[2019-03-21] MEDS ORDERED: CLOPIDOGREL BISULFATE 75 MG TABLET (FP) PO SCH (19:00)
[2019-03-21] MEDS ORDERED: PANTOPRAZOLE 40 MG TABLET (FP) PO SCH (19:00)
[2019-03-21] MEDS: NICOTINE 14 MG/24 HOURS TOPICAL PATCH TD SCH (20:33)
[2019-03-21] MEDS: ASPIRIN 81 MG CHEWABLE TABLETS PO SCH (21:40)
[2019-03-21] MEDS: ATORVASTATIN CA 40 MG TABLET (FP) PO SCH (21:41)
[2019-03-21] MEDS: METOPROLOL TARTRATE 25 MG TABLET (FP) PO SCH (21:41)
[2019-03-21] MEDS: MONTELUKAST NA 10 MG TABLET PO SCH (23:25)
[2019-03-21] MEDS: RANITIDINE HCL 150 MG TABLET (FP) PO SCH (23:25)
[2019-03-21] MEDS: THIAMINE HCL 100 MG TABLET (FP) PO SCH (23:25)
[2019-03-22] MEDS: CLOPIDOGREL BISULFATE 75 MG TABLET (FP) PO SCH (07:01)
[2019-03-22] MEDS: ASPIRIN 81 MG CHEWABLE TABLETS PO SCH (10:27)
[2019-03-22] MEDS: PRENATAL VITAMINS W/ FOLIC ACID TABLET (FP) PO SCH (10:27)
[2019-03-22] MEDS: METHADONE HCL 40 MG DISPERSABLE TABLET PO SCH (10:28)
[2019-03-22] MEDS: NICOTINE 14 MG/24 HOURS TOPICAL PATCH TD SCH (10:28)
[2019-03-22] MEDS: LISINOPRIL 5 MG TABLET (FP) PO SCH (10:28)
[2019-03-22 11:00] LABS: URINE APPEARANCE CLEAR; URINE BILIRUBIN NEGATIVE (NEGATIVE); URINE COLOR YELLOW; URINE GLUCOSE (UA) NEGATIVE (NEGATIVE); URINE KETONE NEGATIVE (NEGATIVE); URINE LEUK ESTERASE NEGATIVE (NEGATIVE); URINE NITRITE NEGATIVE (NEGATIVE); URINE PROTEIN NEGATIVE (NEGATIVE); URINE UROBILINOGEN 0.2 mg/dL (0.2-1.0)
[2019-03-22] MEDS: METOPROLOL TARTRATE 25 MG TABLET (FP) PO SCH ×2 (11:03→22:10)
[2019-03-22] MEDS: RANITIDINE HCL 150 MG TABLET (FP) PO SCH ×2 (11:03→21:40)
[2019-03-22 12:43] LABS: ALBUMIN 3.4 g/dl (3.4-5.0); BILIRUBIN,TOTAL 0.4 mg/dL (0.2-1); BLOOD UREA NITROGEN 13.2 mg/dL (7-18); CALCIUM 9.1 mg/dL (8.5-10.1); POTASSIUM 4.4 mmol/L (3.5-5.1); TOT PROT 7.8 g/dl (6.4-8.2)
[2019-03-22 13:10] LABS: HEMATOCRIT 42.6 % (35.4-49); MCHC 32.8 g/dl (32.0-35.9); MEAN CELL VOLUME 88.3 fl (80-96); MEAN PLT VOLUME 9.9 fl (7.5-11.1); PLATELET COUNT 191 K/MM3 (134-434); RBC 4.83 M/mm3 (4.00-5.60); RDW 14.9 % (11.9-15.9); WHITE BLOOD COUNT 7.3 K/mm3 (4.0-10.0)
[2019-03-22] MEDS: ATORVASTATIN CA 40 MG TABLET (FP) PO SCH (21:40)
[2019-03-22] MEDS: THIAMINE HCL 100 MG TABLET (FP) PO SCH (21:40)
[2019-03-22] MEDS: MONTELUKAST NA 10 MG TABLET PO SCH (21:40)
[2019-03-23] MEDS: METHADONE HCL 40 MG DISPERSABLE TABLET PO SCH (05:55)
[2019-03-23] MEDS: CLOPIDOGREL BISULFATE 75 MG TABLET (FP) PO SCH (07:48)
[2019-03-23] MEDS: RANITIDINE HCL 150 MG TABLET (FP) PO SCH ×2 (10:23→21:29)
[2019-03-23] MEDS: ASPIRIN 81 MG CHEWABLE TABLETS PO SCH (10:23)
[2019-03-23] MEDS: METOPROLOL TARTRATE 25 MG TABLET (FP) PO SCH ×2 (10:23→21:29)
[2019-03-23] MEDS: LISINOPRIL 5 MG TABLET (FP) PO SCH (10:23)
[2019-03-23] MEDS: PRENATAL VITAMINS W/ FOLIC ACID TABLET (FP) PO SCH (10:23)
[2019-03-23] MEDS: NICOTINE 14 MG/24 HOURS TOPICAL PATCH TD SCH (10:24)
[2019-03-23] MEDS: ATORVASTATIN CA 40 MG TABLET (FP) PO SCH (21:29)
[2019-03-23] MEDS: THIAMINE HCL 100 MG TABLET (FP) PO SCH (21:29)
[2019-03-23] MEDS: MONTELUKAST NA 10 MG TABLET PO SCH (21:29)
[2019-03-24] MEDS: METHADONE HCL 40 MG DISPERSABLE TABLET PO SCH (06:06)
[2019-03-24] MEDS: CLOPIDOGREL BISULFATE 75 MG TABLET (FP) PO SCH (07:46)
[2019-03-24] MEDS: LISINOPRIL 5 MG TABLET (FP) PO SCH (09:44)
[2019-03-24] MEDS: RANITIDINE HCL 150 MG TABLET (FP) PO SCH ×2 (09:44→21:35)
[2019-03-24] MEDS: ASPIRIN 81 MG CHEWABLE TABLETS PO SCH (09:44)
[2019-03-24] MEDS: NICOTINE 14 MG/24 HOURS TOPICAL PATCH TD SCH (09:44)
[2019-03-24] MEDS: PRENATAL VITAMINS W/ FOLIC ACID TABLET (FP) PO SCH (09:45)
[2019-03-24] MEDS: METOPROLOL TARTRATE 25 MG TABLET (FP) PO SCH ×2 (09:45→21:35)
[2019-03-24] MEDS: ATORVASTATIN CA 40 MG TABLET (FP) PO SCH (21:35)
[2019-03-24] MEDS: MONTELUKAST NA 10 MG TABLET PO SCH (21:35)
[2019-03-24] MEDS: THIAMINE HCL 100 MG TABLET (FP) PO SCH (21:35)
[2019-03-24] MEDS: MELATONIN 5 MG TABLETS PO PRN (21:36)
[2019-03-25] MEDS: METHADONE HCL 40 MG DISPERSABLE TABLET PO SCH (05:57)
[2019-03-25] MEDS: CLOPIDOGREL BISULFATE 75 MG TABLET (FP) PO SCH (08:23)
[2019-03-25] MEDS: METOPROLOL TARTRATE 25 MG TABLET (FP) PO SCH ×2 (10:25→21:26)
[2019-03-25] MEDS: LISINOPRIL 5 MG TABLET (FP) PO SCH (10:25)
[2019-03-25] MEDS: PRENATAL VITAMINS W/ FOLIC ACID TABLET (FP) PO SCH (10:25)
[2019-03-25] MEDS: RANITIDINE HCL 150 MG TABLET (FP) PO SCH ×2 (10:25→21:25)
[2019-03-25] MEDS: ASPIRIN 81 MG CHEWABLE TABLETS PO SCH (10:25)
[2019-03-25] MEDS: NICOTINE 14 MG/24 HOURS TOPICAL PATCH TD SCH (10:25)
--- NOTE | 2019-03-25 17:36 | CONSULT ---
[facility] Psychiatric Consult - Data Date of interview: 03/25/19 Admission source: Referral from [facility]. Identifying data: Day 5 of rehabilitation for this 53y/o male, directly admitted to [address] after completion of detoxification at [facility]. Patient is , a father of one, domiciled, unemployed and supported on SSI benefits. Substance Abuse History: Smoking history: Current every day smoker. Have you smoked in the past 12 months: Yes. Aproximately how many cigarettes per day: 20. Cigars Per Day: 0. Hx Chewing Tobacco Use: No. Initiated information on smoking cessation: Yes. 'Breaking Loose' booklet given: 03/21/19. - Substance & Tx. History. Hx Alcohol Use: No. Substance Use Type: Cocaine, Heroin. Hx Substance Use Treatment: Yes ([facility] detox recent . [facility] previously 2016). - Substances abused. Heroin. Substance route: Injection. Frequency: Daily. Amount used: 2 bags. Age of first use: 19. Date of last use: 03/16/19. Alcohol. Date of last use: 03/16/19. Crack. Substance route: smoking. Frequency: Daily. Amount used: $20 dollars. Age of first use: 19. Date of last use: 03/16/19. Alprazolam (Xanax). Substance route: Oral. Frequency: 3-6 times per week. Amount used: 1 stick. Age of first use: 27. Date of last use: 03/14/19 Medical History: Medical profile is remarkable for a history of myocardial infarction in 2010 (two stents), hypertension, dyslipidemia, coronary artery disease and hepatitis C. Psychiatric History: No reported history of psychiatric hospitalizations.He continues to address his issues (substance use disorders, MDD, Panic Disorder) at the [facility] OPD clinic (Jasvir/Sinan).Medicated with celexa 20 mg/day + klonopin 1 mg/bid (Dr Chaney).Mr Sawant is currently on methadone maintenance (120 mg/day) at [facility]. Patient denies history of suicide attempts. Physical/Sexual Abuse/Trauma History: Patient denies history of abuse. Additional Comment: Urine drug screen results: FEN-Fentanyl, MTD-Methadone, BZO- Benzodiazepines. Noted. Mental Status Exam - Mental Status Exam Alert and Oriented to: Time, Place, Person Cognitive Function: Good Patient Appearance: Well Groomed Mood: Hopeful, Euthymic Affect: Appropriate, Normal Range Patient Behavior: Appropriate, Cooperative Speech Pattern: Clear, Appropriate Voice Loudness: Normal Thought Process: Intact, Goal Oriented Thought Disorder: Not Present Hallucinations: Denies Suicidal Ideation: Denies Homicidal Ideation: Denies Insight/Judgement: Fair Sleep: Poorly, Difficulty falling asleep Appetite: Good Muscle strength/Tone: Normal Gait/Station: Normal Psychiatric Findings - Problem List ([place] 1, 2,3) (1) Opioid dependence on agonist therapy Current Visit: Yes Status: Chronic (2) Moderate benzodiazepine use disorder Current Visit: Yes Status: Chronic (3) Cocaine dependence Current Visit: Yes Status: Chronic (4) Nicotine dependence Current Visit: Yes Status: Chronic Qualifiers: Nicotine product type: cigarettes Substance use status: in withdrawal Qualified Code(s): F17.213 - Nicotine dependence, cigarettes, with withdrawal (5) Depressive disorder Current Visit: Yes Status: Chronic (6) History of panic disorder Current Visit: Yes Status: Chronic (7) Insomnia Current Visit: Yes Status: Chronic - Initial Treatment Plan Initial Treatment Plan: Psychoeducation. Sleep hygiene. NA meetings. Counseling. Medications : celexa 20 mg po daily. Side effects/benefits are discussed with patient. Gave consent (verbal) to Observation.
[2019-03-25] MEDS: ATORVASTATIN CA 40 MG TABLET (FP) PO SCH (21:26)
[2019-03-25] MEDS: MONTELUKAST NA 10 MG TABLET PO SCH (21:27)
[2019-03-25] MEDS: MELATONIN 5 MG TABLETS PO PRN (21:27)
[2019-03-25] MEDS: THIAMINE HCL 100 MG TABLET (FP) PO SCH (21:27)
--- NOTE | 2019-03-25 21:38 | PN ---
S Progress Note Note: Psychiatry Attending's note : Abnormal EKG. Sinus bradycardia. Car Customizer contacted [facility] Via telephone ([phone]). For follow-up.
[2019-03-26] MEDS: METHADONE HCL 40 MG DISPERSABLE TABLET PO SCH (05:56)
[2019-03-26] MEDS: ACETAMINOPHEN 325 MG TABLET (FP) PO PRN (07:47)
[2019-03-26] MEDS: CLOPIDOGREL BISULFATE 75 MG TABLET (FP) PO SCH (07:51)
[2019-03-26] MEDS ORDERED: CITALOPRAM HYDROBROMIDE 20 MG TABLET (FP) PO SCH (10:00)
[2019-03-26] MEDS: METOPROLOL TARTRATE 25 MG TABLET (FP) PO SCH ×2 (10:16→21:56)
[2019-03-26] MEDS: LISINOPRIL 5 MG TABLET (FP) PO SCH (10:17)
[2019-03-26] MEDS: ASPIRIN 81 MG CHEWABLE TABLETS PO SCH (10:17)
[2019-03-26] MEDS: RANITIDINE HCL 150 MG TABLET (FP) PO SCH ×2 (10:17→21:53)
[2019-03-26] MEDS: NICOTINE 14 MG/24 HOURS TOPICAL PATCH TD SCH (10:17)
[2019-03-26] MEDS: PRENATAL VITAMINS W/ FOLIC ACID TABLET (FP) PO SCH (10:17)
[2019-03-26] MEDS: MONTELUKAST NA 10 MG TABLET PO SCH (21:54)
[2019-03-26] MEDS: THIAMINE HCL 100 MG TABLET (FP) PO SCH (21:54)
[2019-03-26] MEDS: ATORVASTATIN CA 40 MG TABLET (FP) PO SCH (21:55)
[2019-03-26] MEDS: MELATONIN 5 MG TABLETS PO PRN (21:56)
[2019-03-27] MEDS: METHADONE HCL 40 MG DISPERSABLE TABLET PO SCH (05:50)
[2019-03-27] MEDS: CLOPIDOGREL BISULFATE 75 MG TABLET (FP) PO SCH (07:23)
[2019-03-27] MEDS: NICOTINE 14 MG/24 HOURS TOPICAL PATCH TD SCH (10:01)
[2019-03-27] MEDS: METOPROLOL TARTRATE 25 MG TABLET (FP) PO SCH ×2 (10:01→21:46)
[2019-03-27] MEDS: RANITIDINE HCL 150 MG TABLET (FP) PO SCH ×2 (10:01→21:46)
[2019-03-27] MEDS: ASPIRIN 81 MG CHEWABLE TABLETS PO SCH (10:01)
[2019-03-27] MEDS: LISINOPRIL 5 MG TABLET (FP) PO SCH (10:01)
[2019-03-27] MEDS: PRENATAL VITAMINS W/ FOLIC ACID TABLET (FP) PO SCH (10:01)
--- NOTE | 2019-03-27 10:47 | PN ---
[facility] Progress Note Note: EKG done 03/25 shows sinus leon- rate 51, non specific ST abnormality. Pt has h/ o TN with stent placement. no chest pain at the present time
--- NOTE | 2019-03-27 11:48 | EKG ---
Test Reason : Blood Pressure : / mmHG Vent. Rate : 051 BPM Atrial Rate : 051 BPM P-R Int : 142 ms QRS Dur : 096 ms QT Int : 470 ms P-R-T Axes : 039 007 082 degrees QTc Int : 433 ms SINUS BRADYCARDIA NONSPECIFIC ST ABNORMALITY ABNORMAL ECG NO PREVIOUS ECGS AVAILABLE Confirmed by KATHERYN PAEZ, LIZBETH ([id number]) on 03/27/2019 11:48:12 AM Referred By: Confirmed By:LIZBETH CAMPA MD
--- NOTE | 2019-03-27 16:59 | PN ---
[facility] Progress Note Note: Psychiatry Attending's note (follow-up) : Case discussed, via telephone, with Dr Zabala. EKG reviewed. Dr Zabala's note : appreciated. Will resume citalopram 20 mg po daily at patient's request. Mr Sawant is already known to this bond writer. No history of adverse effects from citalopram. Records yield no evidence of past treatment with seroquel. Patient was reportedly using " old, left over pills " at home. Not prescribed by his outpatient physician.
[2019-03-27] MEDS: ATORVASTATIN CA 40 MG TABLET (FP) PO SCH (21:46)
[2019-03-27] MEDS: THIAMINE HCL 100 MG TABLET (FP) PO SCH (21:46)
[2019-03-27] MEDS: MONTELUKAST NA 10 MG TABLET PO SCH (21:47)
[2019-03-28] MEDS: METHADONE HCL 40 MG DISPERSABLE TABLET PO SCH (06:27)
[2019-03-28] MEDS: CLOPIDOGREL BISULFATE 75 MG TABLET (FP) PO SCH (07:10)
[2019-03-28] MEDS: RANITIDINE HCL 150 MG TABLET (FP) PO SCH ×2 (09:36→21:23)
[2019-03-28] MEDS: LISINOPRIL 5 MG TABLET (FP) PO SCH (09:36)
[2019-03-28] MEDS: ASPIRIN 81 MG CHEWABLE TABLETS PO SCH (09:36)
[2019-03-28] MEDS: PRENATAL VITAMINS W/ FOLIC ACID TABLET (FP) PO SCH (09:36)
[2019-03-28] MEDS: METOPROLOL TARTRATE 25 MG TABLET (FP) PO SCH ×2 (09:36→21:23)
[2019-03-28] MEDS: CITALOPRAM HYDROBROMIDE 20 MG TABLET (FP) PO SCH (09:37)
[2019-03-28] MEDS: NICOTINE 14 MG/24 HOURS TOPICAL PATCH TD SCH (09:38)
[2019-03-28] MEDS: ATORVASTATIN CA 40 MG TABLET (FP) PO SCH (21:23)
[2019-03-28] MEDS: THIAMINE HCL 100 MG TABLET (FP) PO SCH (21:23)
[2019-03-28] MEDS: MONTELUKAST NA 10 MG TABLET PO SCH (21:24)
[2019-03-29] MEDS: METHADONE HCL 40 MG DISPERSABLE TABLET PO SCH (05:44)
[2019-03-29] MEDS: CLOPIDOGREL BISULFATE 75 MG TABLET (FP) PO SCH (07:26)
[2019-03-29] MEDS: RANITIDINE HCL 150 MG TABLET (FP) PO SCH ×2 (10:19→21:21)
[2019-03-29] MEDS: METOPROLOL TARTRATE 25 MG TABLET (FP) PO SCH ×2 (10:19→21:55)
[2019-03-29] MEDS: LISINOPRIL 5 MG TABLET (FP) PO SCH (10:19)
[2019-03-29] MEDS: ASPIRIN 81 MG CHEWABLE TABLETS PO SCH (10:19)
[2019-03-29] MEDS: PRENATAL VITAMINS W/ FOLIC ACID TABLET (FP) PO SCH (10:19)
[2019-03-29] MEDS: CITALOPRAM HYDROBROMIDE 20 MG TABLET (FP) PO SCH (10:19)
[2019-03-29] MEDS: NICOTINE 14 MG/24 HOURS TOPICAL PATCH TD SCH (10:20)
[2019-03-29] MEDS: MELATONIN 5 MG TABLETS PO PRN (21:21)
[2019-03-29] MEDS: ATORVASTATIN CA 40 MG TABLET (FP) PO SCH (21:21)
[2019-03-29] MEDS: THIAMINE HCL 100 MG TABLET (FP) PO SCH (21:21)
[2019-03-29] MEDS: MONTELUKAST NA 10 MG TABLET PO SCH (21:48)
[2019-03-30] MEDS: METHADONE HCL 40 MG DISPERSABLE TABLET PO SCH (06:03)
[2019-03-30] MEDS: CLOPIDOGREL BISULFATE 75 MG TABLET (FP) PO SCH (07:31)
[2019-03-30] MEDS: PRENATAL VITAMINS W/ FOLIC ACID TABLET (FP) PO SCH (09:52)
[2019-03-30] MEDS: RANITIDINE HCL 150 MG TABLET (FP) PO SCH ×2 (09:52→21:15)
[2019-03-30] MEDS: NICOTINE 14 MG/24 HOURS TOPICAL PATCH TD SCH (09:52)
[2019-03-30] MEDS: ASPIRIN 81 MG CHEWABLE TABLETS PO SCH (09:52)
[2019-03-30] MEDS: CITALOPRAM HYDROBROMIDE 20 MG TABLET (FP) PO SCH (09:52)
[2019-03-30] MEDS: METOPROLOL TARTRATE 25 MG TABLET (FP) PO SCH ×2 (09:52→21:16)
[2019-03-30] MEDS: LISINOPRIL 5 MG TABLET (FP) PO SCH (09:52)
[2019-03-30] MEDS: ATORVASTATIN CA 40 MG TABLET (FP) PO SCH (21:16)
[2019-03-30] MEDS: MONTELUKAST NA 10 MG TABLET PO SCH (21:16)
[2019-03-30] MEDS: MELATONIN 5 MG TABLETS PO PRN (21:17)
[2019-03-30] MEDS: THIAMINE HCL 100 MG TABLET (FP) PO SCH (22:00)
[2019-03-31] MEDS: METHADONE HCL 40 MG DISPERSABLE TABLET PO SCH (05:49)
[2019-03-31] MEDS: CLOPIDOGREL BISULFATE 75 MG TABLET (FP) PO SCH (07:19)
[2019-03-31] MEDS: LISINOPRIL 5 MG TABLET (FP) PO SCH (10:01)
[2019-03-31] MEDS: RANITIDINE HCL 150 MG TABLET (FP) PO SCH ×2 (10:01→21:52)
[2019-03-31] MEDS: ASPIRIN 81 MG CHEWABLE TABLETS PO SCH (10:01)
[2019-03-31] MEDS: PRENATAL VITAMINS W/ FOLIC ACID TABLET (FP) PO SCH (10:01)
[2019-03-31] MEDS: CITALOPRAM HYDROBROMIDE 20 MG TABLET (FP) PO SCH (10:01)
[2019-03-31] MEDS: METOPROLOL TARTRATE 25 MG TABLET (FP) PO SCH ×2 (10:01→21:52)
[2019-03-31] MEDS: NICOTINE 14 MG/24 HOURS TOPICAL PATCH TD SCH (10:02)
[2019-03-31] MEDS: MELATONIN 5 MG TABLETS PO PRN (21:52)
[2019-03-31] MEDS: ATORVASTATIN CA 40 MG TABLET (FP) PO SCH (21:52)
[2019-03-31] MEDS: MONTELUKAST NA 10 MG TABLET PO SCH (21:53)
[2019-03-31] MEDS: THIAMINE HCL 100 MG TABLET (FP) PO SCH (21:53)
[2019-04-01] MEDS: METHADONE HCL 40 MG DISPERSABLE TABLET PO SCH (06:11)
[2019-04-01] MEDS: CLOPIDOGREL BISULFATE 75 MG TABLET (FP) PO SCH (07:10)
[2019-04-01] MEDS: ASPIRIN 81 MG CHEWABLE TABLETS PO SCH (10:09)
[2019-04-01] MEDS: METOPROLOL TARTRATE 25 MG TABLET (FP) PO SCH ×2 (10:09→21:47)
[2019-04-01] MEDS: CITALOPRAM HYDROBROMIDE 20 MG TABLET (FP) PO SCH (10:10)
[2019-04-01] MEDS: RANITIDINE HCL 150 MG TABLET (FP) PO SCH ×2 (10:10→21:47)
[2019-04-01] MEDS: LISINOPRIL 5 MG TABLET (FP) PO SCH (10:10)
[2019-04-01] MEDS: PRENATAL VITAMINS W/ FOLIC ACID TABLET (FP) PO SCH (10:11)
[2019-04-01] MEDS: NICOTINE 14 MG/24 HOURS TOPICAL PATCH TD SCH (10:11)
[2019-04-01] MEDS: MONTELUKAST NA 10 MG TABLET PO SCH (21:47)
[2019-04-01] MEDS: ATORVASTATIN CA 40 MG TABLET (FP) PO SCH (21:47)
[2019-04-01] MEDS: THIAMINE HCL 100 MG TABLET (FP) PO SCH (21:47)
[2019-04-02] MEDS: METHADONE HCL 40 MG DISPERSABLE TABLET PO SCH (05:48)
[2019-04-02] MEDS: CLOPIDOGREL BISULFATE 75 MG TABLET (FP) PO SCH (08:01)
[2019-04-02] MEDS: RANITIDINE HCL 150 MG TABLET (FP) PO SCH ×2 (13:04→21:49)
[2019-04-02] MEDS: PRENATAL VITAMINS W/ FOLIC ACID TABLET (FP) PO SCH (13:04)
[2019-04-02] MEDS: CITALOPRAM HYDROBROMIDE 20 MG TABLET (FP) PO SCH (13:04)
[2019-04-02] MEDS: LISINOPRIL 5 MG TABLET (FP) PO SCH (13:04)
[2019-04-02] MEDS: ASPIRIN 81 MG CHEWABLE TABLETS PO SCH (13:04)
[2019-04-02] MEDS: METOPROLOL TARTRATE 25 MG TABLET (FP) PO SCH ×2 (13:04→21:49)
[2019-04-02] MEDS: NICOTINE 14 MG/24 HOURS TOPICAL PATCH TD SCH (13:04)
[2019-04-02] MEDS: THIAMINE HCL 100 MG TABLET (FP) PO SCH (21:49)
[2019-04-02] MEDS: MONTELUKAST NA 10 MG TABLET PO SCH (21:49)
[2019-04-02] MEDS: ATORVASTATIN CA 40 MG TABLET (FP) PO SCH (21:50)
[2019-04-03] MEDS: METHADONE HCL 40 MG DISPERSABLE TABLET PO SCH (06:08)
[2019-04-03] MEDS: CLOPIDOGREL BISULFATE 75 MG TABLET (FP) PO SCH (07:06)
[2019-04-03] MEDS: PRENATAL VITAMINS W/ FOLIC ACID TABLET (FP) PO SCH (09:47)
[2019-04-03] MEDS: ASPIRIN 81 MG CHEWABLE TABLETS PO SCH (09:47)
[2019-04-03] MEDS: LISINOPRIL 5 MG TABLET (FP) PO SCH (09:47)
[2019-04-03] MEDS: NICOTINE 14 MG/24 HOURS TOPICAL PATCH TD SCH (09:48)
[2019-04-03] MEDS: CITALOPRAM HYDROBROMIDE 20 MG TABLET (FP) PO SCH (09:48)
[2019-04-03] MEDS: METOPROLOL TARTRATE 25 MG TABLET (FP) PO SCH ×2 (09:48→22:19)
[2019-04-03] MEDS: RANITIDINE HCL 150 MG TABLET (FP) PO SCH ×2 (09:48→22:19)
[2019-04-03] MEDS: MONTELUKAST NA 10 MG TABLET PO SCH (22:19)
[2019-04-03] MEDS: ATORVASTATIN CA 40 MG TABLET (FP) PO SCH (22:19)
[2019-04-03] MEDS: THIAMINE HCL 100 MG TABLET (FP) PO SCH (22:19)
[2019-04-04] MEDS: METHADONE HCL 40 MG DISPERSABLE TABLET PO SCH (06:24)
[2019-04-04] MEDS: CLOPIDOGREL BISULFATE 75 MG TABLET (FP) PO SCH (07:33)
[2019-04-04] MEDS: CITALOPRAM HYDROBROMIDE 20 MG TABLET (FP) PO SCH (10:08)
[2019-04-04] MEDS: ASPIRIN 81 MG CHEWABLE TABLETS PO SCH (10:08)
[2019-04-04] MEDS: METOPROLOL TARTRATE 25 MG TABLET (FP) PO SCH ×2 (10:08→21:37)
[2019-04-04] MEDS: LISINOPRIL 5 MG TABLET (FP) PO SCH (10:08)
[2019-04-04] MEDS: PRENATAL VITAMINS W/ FOLIC ACID TABLET (FP) PO SCH (10:09)
[2019-04-04] MEDS: RANITIDINE HCL 150 MG TABLET (FP) PO SCH ×2 (10:09→21:37)
[2019-04-04] MEDS: NICOTINE 14 MG/24 HOURS TOPICAL PATCH TD SCH (10:09)
[2019-04-04] MEDS: THIAMINE HCL 100 MG TABLET (FP) PO SCH (21:36)
[2019-04-04] MEDS: ATORVASTATIN CA 40 MG TABLET (FP) PO SCH (21:37)
[2019-04-04] MEDS: MONTELUKAST NA 10 MG TABLET PO SCH (21:37)
[2019-04-05] MEDS: METHADONE HCL 40 MG DISPERSABLE TABLET PO SCH (06:40)
[2019-04-05] MEDS: CLOPIDOGREL BISULFATE 75 MG TABLET (FP) PO SCH (07:01)
[2019-04-05] MEDS: ACETAMINOPHEN 325 MG TABLET (FP) PO PRN (07:45)
[2019-04-05] MEDS: METOPROLOL TARTRATE 25 MG TABLET (FP) PO SCH ×2 (10:11→21:19)
[2019-04-05] MEDS: CITALOPRAM HYDROBROMIDE 20 MG TABLET (FP) PO SCH (10:11)
[2019-04-05] MEDS: ASPIRIN 81 MG CHEWABLE TABLETS PO SCH (10:11)
[2019-04-05] MEDS: PRENATAL VITAMINS W/ FOLIC ACID TABLET (FP) PO SCH (10:12)
[2019-04-05] MEDS: NICOTINE 14 MG/24 HOURS TOPICAL PATCH TD SCH (10:12)
[2019-04-05] MEDS: RANITIDINE HCL 150 MG TABLET (FP) PO SCH ×2 (10:12→21:18)
[2019-04-05] MEDS: LISINOPRIL 5 MG TABLET (FP) PO SCH (10:12)
[2019-04-05] MEDS: THIAMINE HCL 100 MG TABLET (FP) PO SCH (21:17)
[2019-04-05] MEDS: ATORVASTATIN CA 40 MG TABLET (FP) PO SCH (21:18)
[2019-04-05] MEDS: MELATONIN 5 MG TABLETS PO PRN (21:18)
[2019-04-05] MEDS: MONTELUKAST NA 10 MG TABLET PO SCH (21:19)
[2019-04-06] MEDS: METHADONE HCL 40 MG DISPERSABLE TABLET PO SCH (06:26)
[2019-04-06] MEDS: CLOPIDOGREL BISULFATE 75 MG TABLET (FP) PO SCH (07:04)
[2019-04-06] MEDS: ASPIRIN 81 MG CHEWABLE TABLETS PO SCH (11:09)
[2019-04-06] MEDS: CITALOPRAM HYDROBROMIDE 20 MG TABLET (FP) PO SCH (11:09)
[2019-04-06] MEDS: RANITIDINE HCL 150 MG TABLET (FP) PO SCH ×2 (11:09→21:58)
[2019-04-06] MEDS: PRENATAL VITAMINS W/ FOLIC ACID TABLET (FP) PO SCH (11:09)
[2019-04-06] MEDS: LISINOPRIL 5 MG TABLET (FP) PO SCH (11:09)
[2019-04-06] MEDS: NICOTINE 14 MG/24 HOURS TOPICAL PATCH TD SCH (11:09)
[2019-04-06] MEDS: METOPROLOL TARTRATE 25 MG TABLET (FP) PO SCH ×2 (11:10→21:59)
[2019-04-06] MEDS: ATORVASTATIN CA 40 MG TABLET (FP) PO SCH (21:58)
[2019-04-06] MEDS: THIAMINE HCL 100 MG TABLET (FP) PO SCH (21:58)
[2019-04-06] MEDS: MELATONIN 5 MG TABLETS PO PRN (21:59)
[2019-04-06] MEDS: MONTELUKAST NA 10 MG TABLET PO SCH (21:59)
[2019-04-07] MEDS: METHADONE HCL 40 MG DISPERSABLE TABLET PO SCH (06:39)
[2019-04-07] MEDS: CLOPIDOGREL BISULFATE 75 MG TABLET (FP) PO SCH (07:33)
[2019-04-07] MEDS: ASPIRIN 81 MG CHEWABLE TABLETS PO SCH (09:13)
[2019-04-07] MEDS: CITALOPRAM HYDROBROMIDE 20 MG TABLET (FP) PO SCH (09:13)
[2019-04-07] MEDS: METOPROLOL TARTRATE 25 MG TABLET (FP) PO SCH ×2 (09:14→22:20)
[2019-04-07] MEDS: NICOTINE 14 MG/24 HOURS TOPICAL PATCH TD SCH (09:14)
[2019-04-07] MEDS: PRENATAL VITAMINS W/ FOLIC ACID TABLET (FP) PO SCH (09:14)
[2019-04-07] MEDS: LISINOPRIL 5 MG TABLET (FP) PO SCH (09:15)
[2019-04-07] MEDS: RANITIDINE HCL 150 MG TABLET (FP) PO SCH ×2 (09:15→22:22)
[2019-04-07] MEDS: ATORVASTATIN CA 40 MG TABLET (FP) PO SCH (22:20)
[2019-04-07] MEDS: MONTELUKAST NA 10 MG TABLET PO SCH (22:21)
[2019-04-07] MEDS: THIAMINE HCL 100 MG TABLET (FP) PO SCH (22:21)
[2019-04-08] MEDS: METHADONE HCL 40 MG DISPERSABLE TABLET PO SCH (06:17)
[2019-04-08] MEDS: CLOPIDOGREL BISULFATE 75 MG TABLET (FP) PO SCH (07:05)
[2019-04-08] MEDS: RANITIDINE HCL 150 MG TABLET (FP) PO SCH ×2 (11:00→21:41)
[2019-04-08] MEDS: PRENATAL VITAMINS W/ FOLIC ACID TABLET (FP) PO SCH (11:00)
[2019-04-08] MEDS: NICOTINE 14 MG/24 HOURS TOPICAL PATCH TD SCH (11:01)
[2019-04-08] MEDS: METOPROLOL TARTRATE 25 MG TABLET (FP) PO SCH ×2 (11:01→21:41)
[2019-04-08] MEDS: CITALOPRAM HYDROBROMIDE 20 MG TABLET (FP) PO SCH (11:01)
[2019-04-08] MEDS: ASPIRIN 81 MG CHEWABLE TABLETS PO SCH (11:03)
[2019-04-08] MEDS: LISINOPRIL 5 MG TABLET (FP) PO SCH (11:03)
[2019-04-08] MEDS: THIAMINE HCL 100 MG TABLET (FP) PO SCH (21:41)
[2019-04-08] MEDS: MONTELUKAST NA 10 MG TABLET PO SCH (21:41)
[2019-04-08] MEDS: ATORVASTATIN CA 40 MG TABLET (FP) PO SCH (21:41)
[2019-04-08] MEDS: MELATONIN 5 MG TABLETS PO PRN (21:42)
[2019-04-09] MEDS: METHADONE HCL 40 MG DISPERSABLE TABLET PO SCH (06:19)
[2019-04-09] MEDS: CLOPIDOGREL BISULFATE 75 MG TABLET (FP) PO SCH (07:10)
[2019-04-09] MEDS: RANITIDINE HCL 150 MG TABLET (FP) PO SCH ×2 (09:38→21:16)
[2019-04-09] MEDS: NICOTINE 14 MG/24 HOURS TOPICAL PATCH TD SCH (09:38)
[2019-04-09] MEDS: ASPIRIN 81 MG CHEWABLE TABLETS PO SCH (09:38)
[2019-04-09] MEDS: CITALOPRAM HYDROBROMIDE 20 MG TABLET (FP) PO SCH (09:39)
[2019-04-09] MEDS: PRENATAL VITAMINS W/ FOLIC ACID TABLET (FP) PO SCH (09:39)
[2019-04-09] MEDS: LISINOPRIL 5 MG TABLET (FP) PO SCH (09:39)
[2019-04-09] MEDS: METOPROLOL TARTRATE 25 MG TABLET (FP) PO SCH ×2 (09:39→21:16)
[2019-04-09] MEDS: THIAMINE HCL 100 MG TABLET (FP) PO SCH (21:16)
[2019-04-09] MEDS: MELATONIN 5 MG TABLETS PO PRN (21:16)
[2019-04-09] MEDS: ATORVASTATIN CA 40 MG TABLET (FP) PO SCH (21:16)
[2019-04-09] MEDS: MONTELUKAST NA 10 MG TABLET PO SCH (21:17)
[2019-04-10] MEDS: METHADONE HCL 40 MG DISPERSABLE TABLET PO SCH (06:10)
[2019-04-10] MEDS: CLOPIDOGREL BISULFATE 75 MG TABLET (FP) PO SCH (07:04)
[2019-04-10] MEDS: PRENATAL VITAMINS W/ FOLIC ACID TABLET (FP) PO SCH (10:13)
[2019-04-10] MEDS: ASPIRIN 81 MG CHEWABLE TABLETS PO SCH (10:13)
[2019-04-10] MEDS: CITALOPRAM HYDROBROMIDE 20 MG TABLET (FP) PO SCH (10:13)
[2019-04-10] MEDS: RANITIDINE HCL 150 MG TABLET (FP) PO SCH ×2 (10:13→21:37)
[2019-04-10] MEDS: LISINOPRIL 5 MG TABLET (FP) PO SCH (10:14)
[2019-04-10] MEDS: NICOTINE 14 MG/24 HOURS TOPICAL PATCH TD SCH (10:14)
[2019-04-10] MEDS: METOPROLOL TARTRATE 25 MG TABLET (FP) PO SCH ×2 (10:14→21:37)
[2019-04-10] MEDS: THIAMINE HCL 100 MG TABLET (FP) PO SCH (21:37)
[2019-04-10] MEDS: MELATONIN 5 MG TABLETS PO PRN (21:37)
[2019-04-10] MEDS: MONTELUKAST NA 10 MG TABLET PO SCH (21:37)
[2019-04-10] MEDS: ATORVASTATIN CA 40 MG TABLET (FP) PO SCH (21:37)
[2019-04-11] MEDS: METHADONE HCL 40 MG DISPERSABLE TABLET PO SCH (06:20)
[2019-04-11] MEDS: CLOPIDOGREL BISULFATE 75 MG TABLET (FP) PO SCH (07:30)
[2019-04-11] MEDS: RANITIDINE HCL 150 MG TABLET (FP) PO SCH ×2 (10:16→21:17)
[2019-04-11] MEDS: PRENATAL VITAMINS W/ FOLIC ACID TABLET (FP) PO SCH (10:16)
[2019-04-11] MEDS: ASPIRIN 81 MG CHEWABLE TABLETS PO SCH (10:16)
[2019-04-11] MEDS: CITALOPRAM HYDROBROMIDE 20 MG TABLET (FP) PO SCH (10:16)
[2019-04-11] MEDS: NICOTINE 14 MG/24 HOURS TOPICAL PATCH TD SCH (10:16)
[2019-04-11] MEDS: LISINOPRIL 5 MG TABLET (FP) PO SCH (10:16)
[2019-04-11] MEDS: METOPROLOL TARTRATE 25 MG TABLET (FP) PO SCH ×2 (10:16→21:16)
--- NOTE | 2019-04-11 17:26 | PN ---
[facility] Progress Note Note: Patient is scheduled for discharge tomorrow. Script for 30 days supply of Celexa 20 mg/day will be electronically transmitted to [facility] at [address] [place], [place] [id number]
[2019-04-11] MEDS: ATORVASTATIN CA 40 MG TABLET (FP) PO SCH (21:16)
[2019-04-11] MEDS: THIAMINE HCL 100 MG TABLET (FP) PO SCH (21:17)
[2019-04-11] MEDS: MELATONIN 5 MG TABLETS PO PRN (21:17)
[2019-04-11] MEDS: MONTELUKAST NA 10 MG TABLET PO SCH (21:17)
[2019-04-11 22:38] VITALS: TEMP 98.1
[2019-04-12] MEDS ORDERED: METHADONE HCL 40 MG DISPERSABLE TABLET PO SCH (06:00)
[2019-04-12] MEDS: CLOPIDOGREL BISULFATE 75 MG TABLET (FP) PO SCH (07:00)
[2019-04-12 07:04] VITALS: BP 107/65; PULSE 61
--- NOTE | 2019-04-12 10:08 | DS ---
[facility] Rehab Discharge Summary - [facility] Rehab Discharge Summary Admission Date: 03/21/19 Discharge Date: 04/12/19 - History Present History: Alcohol dependence, Cocaine dependence, MMTP, Opioid dependence - Discharge Physical Exam Vital Signs: Vital Signs Temperature 98.1 F 04/12/19 07:04 Pulse Rate 61 04/12/19 07:04 Respiratory Rate 18 04/12/19 07:04 Blood Pressure 107/65 04/12/19 07:04 O2 Sat by Pulse Oximetry (%) Pertinent Admission Physical Exam Findings: PE alert and oriented x 3 skin warm, + facial moisture neck supple, no jvd car s1s2 resp cta bl ext full rom, amb ad ana maria, no tremors - Treatment Discharge Condition: Discharge condition good Hospital Course: Patient completed rehab today and reports he was able to attain all rehab goals. Patient attended group meetings and is motivated to maintain sobriety. He is medically stable upon discharge and denies SI/HI. - Medication Discharge Medications: Ambulatory Orders Citalopram Hydrobromide [Celexa -] 20 mg PO DAILY #30 tablet 07/16/16 Aspirin [ASA -] 81 mg PO DAILY #30 tab.chew 09/13/17 Atorvastatin Ca [Lipitor] 40 mg PO HS #30 tablet 09/13/17 Pantoprazole Sodium [Protonix -] 40 mg PO DAILY #30 tablet.ec 09/13/17 Clopidogrel Bisulfate [Plavix -] 75 mg PO DAILY 03/21/19 Lisinopril [Prinivil -] 5 mg PO DAILY 03/21/19 Metoprolol Tartrate [Lopressor -] 25 mg PO BID 03/21/19 Montelukast Na [Singulair -] 10 mg PO HS 03/21/19 Aspirin [ASA -] 81 mg PO DAILY 15 Days #15 tab.chew 04/11/19 Atorvastatin Ca [Lipitor] 40 mg PO HS 15 Days #15 tablet 04/11/19 Citalopram Hydrobromide [Celexa -] 20 mg PO DAILY #30 tablet 04/11/19 Clopidogrel Bisulfate [Plavix -] 75 mg PO DAILY@0800 15 Days #15 tablet Lisinopril [Prinivil] 5 mg PO DAILY 15 Days #15 tablet 04/11/19 Metoprolol Tartrate [Lopressor -] 25 mg PO BID 30 Days #30 tablet 04/11/19 Montelukast Na [Singulair -] 10 mg PO HS 15 Days #15 tablet 04/11/19 Ranitidine [Zantac -] 150 mg PO BID 30 Days #30 tablet 04/11/19 - Medication-Assisted Treatment (MAT) Medication-Assisted Treatment (MAT): Yes MAT Follow-up Referral: MMTP at [facility] appt for tomorrow morning, 04/13/19 at 6:30am. Aftercare also arranged for [facility] on 04/16/19 at 10am. - Discharge Instructions Diet, activity, other medical instructions: Diet: Activity: Other medical instructions: - Follow-up Referral Minutes to complete discharge: 30 - AMA Did Patient Leave Against Medical Advice: No
== END 2019-04-12 09:00 | disposition home or self-care (01) | DRG 772 ==
LOC: YASAS 14:53 → Y3W 17:34
PROVIDERS: ADMIT Neuromusculoskeletal Medicine & OMM; ATTEND Neuromusculoskeletal Medicine & OMM
PROC: HZ42ZZZ Group Counseling for Substance Abuse Treatment, Cognitive-Behavioral (ICD-10-PCS; principal; 2019-03-21)
DX: F10.20 Alcohol dependence, uncomplicated (principal); F11.20 Opioid dependence, uncomplicated; F13.20 Sedative, hypnotic or anxiolytic dependence, uncomplicated; F14.20 Cocaine dependence, uncomplicated; F17.210 Nicotine dependence, cigarettes, uncomplicated; F32.9 Major depressive disorder, single episode, unspecified; F40.00 Agoraphobia, unspecified; F41.0 Panic disorder [episodic paroxysmal anxiety]; I25.119 Atherosclerotic heart disease of native coronary artery with unspecified angina pectoris; I10 Essential (primary) hypertension; Z95.1 Presence of aortocoronary bypass graft; Z95.5 Presence of coronary angioplasty implant and graft; I25.2 Old myocardial infarction; E78.5 Hyperlipidemia, unspecified; K21.9 Gastro-esophageal reflux disease without esophagitis; G47.00 Insomnia, unspecified; Z86.711 Personal history of pulmonary embolism; Z79.01 Long term (current) use of anticoagulants
CPT/HCPCS: 36415; 80053; 81003; 85027; 86593; 87389; 93005; 93010

== ENCOUNTER 2019-09-17 12:22 | Inpatient (IN) | payer OTHER ==
[2019-09-17 14:40] VITALS: BMI 34.4
--- NOTE | 2019-09-17 15:15 | HP ---
CIWA Score - Admission Criteria OASAS Guidelines: Admission for Medically Managed Detox: Requires at least one of the followin. CIWA greater than 12 2. Seizures within the past 24 hours 3. Delirium tremens within the past 24 hours 4. Hallucinations within the past 24 hours 5. Acute intervention needed for co occurring medical disorder 6. Acute intervention needed for co occurring psychiatric disorder 7. Severe withdrawal that cannot be handled at a lower level of care (continued vomiting, continued diarrhea, abnormal vital signs) requiring intravenous medication and/or fluids 8. Admitting History and Physical - Admission History of Present Illness: 54 y/o M with PMH CAD s/p [place] w/ CABG (2005; 2 stents), hep c (not tx), HTN, HLD , anxiety, panic disorder, agoraphobia, who presents for rehab from benzos, heroin, crack cocaine, alcohol. Per pt, he was just at [facility] to complete his detox, which ended on monday. states he smoked 1 crack yesterday. Was using benzos (xanax) 3x a week, 2 mg at a time. Last use 7 days ago. Uses them because it makes him feel "relaxed." Has been using since age 27. Heroin last used 4 mo ago. Prior IVDU. (PAULAE, b/l antecubital fossa), no hx endocarditis, cellulitis or abscesses. was abstinent for 10 yrs. Is part of [facility] MTD program. On 70mg qd. Has been there for 3yrs. Smokes crack cocaine, $10/day since age 27. last use yesterday. Alcohol: 3 nips / day. started 10 y ago. longest sobriety 5 years . endorses withdrawal seizures > 5 y ago. Last rehab admission 03/2019 Pt plans to go to meetings and relocate to [place] with Significant other. he has support system at home. unemployed. PsxH: CABG as above allergies: shellfish FH: father - [place] age 43. mother - [place]; age 82, emphysema Smokes 7 cigarettes since age 19. History Source: Patient Limitations to Obtaining History: No Limitations - Smoking History Smoking history: Current every day smoker Have you smoked in the past 12 months: Yes Aproximately how many cigarettes per day: 7 - Alcohol/Substance Use Hx Alcohol Use: No Admission ROS S - HPI Allergies/Adverse Reactions: Allergies Allergy/AdvReac Type Severity Reaction Status Date / Time shellfish derived Allergy Severe Swelling Verified 09/17/19 14:24 No Known Drug Allergies Allergy Verified 09/17/19 14:24 Exam Limitations: No Limitations - Ebola screening Do you have a fever: No - Review of Systems Constitutional: No Symptoms Reported EENT: reports: No Symptoms Reported Respiratory: reports: No Symptoms reported Cardiac: reports: No Symptoms Reported GI: reports: No Symptoms Reported : reports: No Symptoms Reported Musculoskeletal: reports: No Symptoms Reported Integumentary: reports: No Symptoms Reported Neuro: reports: No Symptoms reported Endocrine: reports: No Symptoms Reported Hematology: reports: No Symptoms Reported Psychiatric: reports: No Sypmtoms Reported Patient History - Patient Medical History Hx Anemia: No Hx Asthma: No Hx Chronic Obstructive Pulmonary Disease (COPD): No Hx Cancer: No Hx Cardiac Disorders: Yes (CABG) Hx Congestive Heart Failure: No Hx Hypertension: Yes Hx Hypercholesterolemia: Yes (on med) Hx Pacemaker: No HX Cerebrovascular Accident: No Hx Seizures: No Hx Dementia: No Hx Diabetes: No Hx Gastrointestinal Disorders: No Hx Liver Disease: No Hx Genitourinary Disorders: No Hx Sexually Transmitted Disorders: No Hx Renal Disease (ESRD): No Hx Thyroid Disease: No Hx Human Immunodeficiency Virus (HIV): No (last 02/17/15 to 02/21/15 negative) Hx Hepatitis C: Yes (not tx) Hx Depression: Yes Hx Suicide Attempt: No Hx Bipolar Disorder: No Hx Schizophrenia: No - Patient Surgical History Past Surgical History: Yes Hx Neurologic Surgery: No Hx Cataract Extraction: No Hx Cardiac Surgery: Yes (2010- ptca - 2 stents ) Hx Lung Surgery: No Hx Breast Surgery: No Hx Breast Biopsy: No Hx Abdominal Surgery: No Hx Appendectomy: No Hx Cholecystectomy: No Hx Genitourinary Surgery: No Hx Section: No Hx Orthopedic Surgery: No Anesthesia Reaction: No - PPD History Previous Implant?: Yes Documented Results: Negative w/o proof Date: 08/31/17 Results: negative - Smoking Cessation Smoking history: Current every day smoker Have you smoked in the past 12 months: Yes Aproximately how many cigarettes per day: 7 Cigars Per Day: 0 Hx Chewing Tobacco Use: No Initiated information on smoking cessation: Yes 'Breaking Loose' booklet given: 09/17/19 - Substances abused Alcohol Substance route: Oral Frequency: Daily Amount used: 5 nips of vodka Age of first use: 19 Date of last use: 09/13/19 Crack Substance route: Smoking Frequency: Daily Amount used: $20 Age of first use: 30 Date of last use: 09/16/19 Alprazolam (Xanax) Other (specify): 2mg Substance route: Oral Frequency: 3-6 times per week Amount used: 1 pill Age of first use: 37 Date of last use: 09/12/19 Admission Physical Exam [facility] - Vital Signs Vital Signs: Vital Signs - 24 hr 09/17/19 14:23 Temperature 98.0 F Pulse Rate 79 Respiratory 16 Rate Blood Pressure 110/72 - Physical General Appearance: Yes: Within Normal Limits, No Apparent Distress, Nourished, Appropriately Dressed HEENTM: Yes: Hearing grossly Normal, Normocephalic, Normal Voice, NAZIA Respiratory: Yes: Chest Non-Tender, Lungs Clear, Normal Breath Sounds Cardiology: Yes: Regular Rhythm, Regular Rate, S1, S2. No: JVD, Murmur Abdominal: Yes: Normal Bowel Sounds, Non Tender, Flat, Soft Back: No: CVA Tenderness Extremities: Yes: Normal Capillary Refill, Normal Inspection, Normal Range of Motion Neurological: Yes: Within Normal Limits, Fully Oriented Integumentary: Yes: Normal Color, Dry, Warm Cleared for Admission [facility] - Detox or Rehab [facility] Level of Care: Medically Managed Claeared for Rehab Admission: Yes Breathalyzer - Breathalyzer Breathalyzer: 0 Urine Drug Screen - Test Device Lot number: [id number] Expiration date: 07/08/21 - Control Is test valid?: Yes - Results Drug screen NEGATIVE: No Urine drug screen results: LEXX-Cocaine, MTD-Methadone, BZO-Benzodiazepines Inpatient Rehab Admission - Rehab Decision to Admit Inpatient rehab admission?: Yes - Initial Determination Are CD services needed?: Yes Free of communicable disease: Yes Not in need of hospitalization: No - Rehab Admission Criteria Previous failed treatment: Yes Poor recovery environment: Yes Comorbidities: Yes Lacks judgement: Yes Patient is meeting Inpatient Rehab admission criteria:: Yes
[2019-09-17] MEDS ORDERED: P-EPHED 60MG/TRIPROLIDI 2.5MG TABLET PO PRN (15:31)
[2019-09-17] MEDS ORDERED: MAG HYDROX/AL HYDROX/SIMETH 30 ML UNIT-DOSE CUP PO PRN (15:31)
[2019-09-17] MEDS ORDERED: MAGNESIUM HYDROX 2400MG/30ML ORAL SUSPENSION 30 ML CUP PO PRN (15:31)
[2019-09-17] MEDS ORDERED: guaiFENesin 200 MG/10 ML 10 ML UNIT-DOSE CUPS PO PRN (15:31)
[2019-09-17] MEDS ORDERED: LOPERAMIDE HCL 2 MG CAPSULE PO PRN (15:31)
[2019-09-17] MEDS ORDERED: MAGNESIUM CITRATE 300 ML BOTTLE PO PRN (15:31)
[2019-09-17] MEDS ORDERED: IBUPROFEN 400 MG TABLET (FP) PO PRN (15:31)
[2019-09-17] MEDS ORDERED: MENTHOL/PHENOL 1 EACH UD MM PRN (15:31)
--- NOTE | 2019-09-17 16:03 | PN ---
Teaching Attending Note Name of Resident: Kerry Becerra ATTENDING PHYSICIAN STATEMENT I saw and evaluated the patient. I reviewed the resident's note and discussed the case with the resident. I agree with the resident's findings and plan as documented. SUBJECTIVE: OBJECTIVE: ASSESSMENT AND PLAN: Admit for Rehab, alcohol and cocaine, benzos
[2019-09-17] MEDS ORDERED: TUBERCULIN PPD 5 TU/0.1ML VIAL ID ONE (17:14)
[2019-09-17] MEDS: THIAMINE HCL 100 MG TABLET (FP) PO SCH (21:49)
[2019-09-17] MEDS: ATORVASTATIN CA 40 MG TABLET (FP) PO SCH (21:49)
[2019-09-17] MEDS ORDERED: MELATONIN 5 MG TABLETS PO PRN (22:00)
[2019-09-18] MEDS ORDERED: METHADONE HCL 10 MG TABLET ONE (05:47)
[2019-09-18] MEDS ORDERED: METHADONE HCL 40 MG DISPERSABLE TABLET ONE (05:47)
[2019-09-18] MEDS: METHADONE 40 MG, METHADONE 30 MG PO SCH (05:58)
[2019-09-18] MEDS ORDERED: METHADONE HCL 10 MG TABLET PO SCH (06:00)
[2019-09-18] MEDS ORDERED: CLOPIDOGREL BISULFATE 75 MG TABLET (FP) PO SCH (08:00)
[2019-09-18] MEDS: ASPIRIN 81 MG CHEWABLE TABLETS PO SCH (09:22)
[2019-09-18] MEDS: PRENATAL VITAMINS W/ FOLIC ACID TABLET (FP) PO SCH (09:22)
[2019-09-18] MEDS: NICOTINE 7 MG/24 HOURS TOPICAL PATCH TD SCH (09:22)
--- NOTE | 2019-09-18 09:51 | PN ---
[facility] Progress Note Note: Pt is a 54 y/o male with a hx of NATASHA-alcohol,crack,xanax and on Methadone 70 mg po daily admitted to rehab through [facility] yesterday 09/17/19. PMHx:HTN,HLD, Hep C( untreated), GERD. Surgical Hx:CABG with 2 stents. Psych Hx:Depression. Pt reports he has no current primary care doctor but had been with Dr Boyd on [place], [place] but has not been compliant with medical management. Reports last saw him about 9 months ago. Pt reports he has a cardiolgist Dr. Jim Kimble at [facility] on [address] [place] [address]. Pt reports he has been very noncompliant with his medications and doctors' visits due to "I've jus been busy using drugs, being reluctant and not taking care of myself". Pt reports he is on medications for his heart and would want to restart them. Vital Signs - 24 hr 09/17/19 09/17/19 09/18/19 14:23 16:05 01:19 Temperature 98.0 F 97.9 F Pulse Rate 79 79 Respiratory 16 18 20 Rate Blood Pressure 110/72 129/70 09/18/19 09/18/19 03:30 07:43 Temperature 98.8 F Pulse Rate 82 Respiratory 18 18 Rate Blood Pressure 107/64 Laboratory Tests 09/17/19 06:00 WBC 8.5 RBC 4.61 Hgb 13.7 Hct 41.0 MCV 89.0 MCH 29.7 MCHC 33.4 RDW 15.5 Plt Count 236 D MPV 10.0 Alert o x 3,denies s/h/i nad oob ambulating with steady gait. A/P new rehab pt NATASHA MMTP-[facility] on Methadone 70 mg po daily Maintain safety cont rehab Review home meds and reorder as necessary called pt's home pharmacy, [facility] at [phone] and pharmacy states will fax copy of medications to the unit. Spoke to pharmacist, Isabella who confirmed pt's home medications with last pickle pumper in March of 2019.
[2019-09-18 10:04] LABS: HEMOGLOBIN 13.7 GM/dL (11.7-16.9); MCH 29.7 pg (25.7-33.7); MCHC 33.4 g/dl (32.0-35.9); PLATELET COUNT 236 K/MM3 (134-434); RBC 4.61 M/mm3 (4.00-5.60); RDW 15.5 % (11.9-15.9); WHITE BLOOD COUNT 8.5 K/mm3 (4.0-10.0)
[2019-09-18 10:18] LABS: ALBUMIN 3.2 g/dl (3.4-5.0); BILIRUBIN,TOTAL 0.2 mg/dL (0.2-1); BLOOD UREA NITROGEN 13.2 mg/dL (7-18); POTASSIUM 4.3 mmol/L (3.5-5.1); TOT PROT 7.1 g/dl (6.4-8.2)
[2019-09-18] MEDS ORDERED: PANTOPRAZOLE 40 MG TABLET PO SCH (10:30)
[2019-09-18] MEDS: FAMOTIDINE 20 MG TABLET PO SCH ×2 (11:00→21:18)
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
[2019-09-18] MEDS: CITALOPRAM HYDROBROMIDE 20 MG TABLET PO SCH (13:22)
[2019-09-18] MEDS: hydrOXYzine PAMOATE 25 MG CAPSULE (FP) PO PRN (13:22)
[2019-09-18] MEDS: THIAMINE HCL 100 MG TABLET (FP) PO SCH (21:18)
[2019-09-18] MEDS: ATORVASTATIN CA 40 MG TABLET (FP) PO SCH (21:18)
[2019-09-19] MEDS ORDERED: METHADONE HCL 10 MG TABLET ONE (06:09)
[2019-09-19] MEDS: METHADONE 40 MG, METHADONE 30 MG PO SCH (06:10)
[2019-09-19] MEDS ORDERED: METHADONE HCL 40 MG DISPERSABLE TABLET ONE (06:10)
[2019-09-19] MEDS: CLOPIDOGREL BISULFATE 75 MG TABLET (FP) PO SCH (06:11)
[2019-09-19] MEDS: ASPIRIN 81 MG CHEWABLE TABLETS PO SCH (10:22)
[2019-09-19] MEDS: NICOTINE 7 MG/24 HOURS TOPICAL PATCH TD SCH (10:22)
[2019-09-19] MEDS: CITALOPRAM HYDROBROMIDE 20 MG TABLET PO SCH (10:22)
[2019-09-19] MEDS: PRENATAL VITAMINS W/ FOLIC ACID TABLET (FP) PO SCH (10:22)
[2019-09-19] MEDS: FAMOTIDINE 20 MG TABLET PO SCH ×2 (10:22→21:41)
[2019-09-19] MEDS: hydrOXYzine PAMOATE 25 MG CAPSULE (FP) PO PRN (10:22)
[2019-09-19] MEDS: THIAMINE HCL 100 MG TABLET (FP) PO SCH (21:41)
[2019-09-19] MEDS: ATORVASTATIN CA 40 MG TABLET (FP) PO SCH (21:41)
[2019-09-19] MEDS: MELATONIN 5 MG TABLETS PO PRN (21:42)
[2019-09-20] MEDS ORDERED: METHADONE HCL 40 MG DISPERSABLE TABLET ONE (06:18)
[2019-09-20] MEDS: CLOPIDOGREL BISULFATE 75 MG TABLET (FP) PO SCH (06:18)
[2019-09-20] MEDS ORDERED: METHADONE HCL 10 MG TABLET ONE (06:18)
[2019-09-20] MEDS: METHADONE 40 MG, METHADONE 30 MG PO SCH (06:19)
[2019-09-20] MEDS: PRENATAL VITAMINS W/ FOLIC ACID TABLET (FP) PO SCH (10:53)
[2019-09-20] MEDS: CITALOPRAM HYDROBROMIDE 20 MG TABLET PO SCH (10:53)
[2019-09-20] MEDS: ASPIRIN 81 MG CHEWABLE TABLETS PO SCH (10:53)
[2019-09-20] MEDS: NICOTINE 7 MG/24 HOURS TOPICAL PATCH TD SCH (10:54)
[2019-09-20] MEDS: FAMOTIDINE 20 MG TABLET PO SCH ×2 (10:54→21:09)
[2019-09-20] MEDS: hydrOXYzine PAMOATE 25 MG CAPSULE (FP) PO PRN (10:55)
[2019-09-20] MEDS: MELATONIN 5 MG TABLETS PO PRN (21:09)
[2019-09-20] MEDS: ATORVASTATIN CA 40 MG TABLET (FP) PO SCH (21:09)
[2019-09-20] MEDS: THIAMINE HCL 100 MG TABLET (FP) PO SCH (21:09)
[2019-09-21] MEDS ORDERED: METHADONE HCL 10 MG TABLET ONE (06:05)
[2019-09-21] MEDS ORDERED: METHADONE HCL 40 MG DISPERSABLE TABLET ONE (06:05)
[2019-09-21] MEDS: METHADONE 40 MG, METHADONE 30 MG PO SCH (06:07)
[2019-09-21] MEDS: CLOPIDOGREL BISULFATE 75 MG TABLET (FP) PO SCH (06:08)
[2019-09-21] MEDS: CITALOPRAM HYDROBROMIDE 20 MG TABLET PO SCH (10:46)
[2019-09-21] MEDS: ASPIRIN 81 MG CHEWABLE TABLETS PO SCH (10:46)
[2019-09-21] MEDS: PRENATAL VITAMINS W/ FOLIC ACID TABLET (FP) PO SCH (10:46)
[2019-09-21] MEDS: FAMOTIDINE 20 MG TABLET PO SCH ×2 (10:46→21:48)
[2019-09-21] MEDS: NICOTINE 7 MG/24 HOURS TOPICAL PATCH TD SCH (10:46)
[2019-09-21] MEDS: THIAMINE HCL 100 MG TABLET (FP) PO SCH (21:47)
[2019-09-21] MEDS ORDERED: ATORVASTATIN CA 20 MG TABLET (FP) ONE (21:48)
[2019-09-21] MEDS: ATORVASTATIN CA 40 MG TABLET (FP) PO SCH (21:49)
[2019-09-21] MEDS: MELATONIN 5 MG TABLETS PO PRN (21:49)
[2019-09-22] MEDS ORDERED: METHADONE HCL 10 MG TABLET ONE (04:29)
[2019-09-22] MEDS ORDERED: METHADONE HCL 40 MG DISPERSABLE TABLET ONE (04:29)
[2019-09-22] MEDS: CLOPIDOGREL BISULFATE 75 MG TABLET (FP) PO SCH (06:23)
[2019-09-22] MEDS: METHADONE 40 MG, METHADONE 30 MG PO SCH (06:24)
[2019-09-22] MEDS: FAMOTIDINE 20 MG TABLET PO SCH ×2 (10:36→21:39)
[2019-09-22] MEDS: NICOTINE 7 MG/24 HOURS TOPICAL PATCH TD SCH (10:36)
[2019-09-22] MEDS: CITALOPRAM HYDROBROMIDE 20 MG TABLET PO SCH (10:36)
[2019-09-22] MEDS: PRENATAL VITAMINS W/ FOLIC ACID TABLET (FP) PO SCH (10:36)
[2019-09-22] MEDS: ASPIRIN 81 MG CHEWABLE TABLETS PO SCH (10:37)
[2019-09-22] MEDS: THIAMINE HCL 100 MG TABLET (FP) PO SCH (21:39)
[2019-09-22] MEDS: ATORVASTATIN CA 40 MG TABLET (FP) PO SCH (21:39)
[2019-09-22] MEDS: MELATONIN 5 MG TABLETS PO PRN (21:40)
[2019-09-23] MEDS ORDERED: METHADONE HCL 40 MG DISPERSABLE TABLET ONE (06:05)
[2019-09-23] MEDS ORDERED: METHADONE HCL 10 MG TABLET ONE (06:05)
[2019-09-23] MEDS: CLOPIDOGREL BISULFATE 75 MG TABLET (FP) PO SCH (06:06)
[2019-09-23] MEDS: METHADONE 40 MG, METHADONE 30 MG PO SCH (06:06)
[2019-09-23] MEDS: CITALOPRAM HYDROBROMIDE 20 MG TABLET PO SCH (10:48)
[2019-09-23] MEDS: PRENATAL VITAMINS W/ FOLIC ACID TABLET (FP) PO SCH (10:48)
[2019-09-23] MEDS: ASPIRIN 81 MG CHEWABLE TABLETS PO SCH (10:48)
[2019-09-23] MEDS: FAMOTIDINE 20 MG TABLET PO SCH ×2 (10:48→21:42)
[2019-09-23] MEDS: NICOTINE 7 MG/24 HOURS TOPICAL PATCH TD SCH (10:49)
[2019-09-23] MEDS: hydrOXYzine PAMOATE 25 MG CAPSULE (FP) PO PRN ×2 (10:50→21:43)
[2019-09-23] MEDS: ATORVASTATIN CA 40 MG TABLET (FP) PO SCH (21:42)
[2019-09-23] MEDS: MELATONIN 5 MG TABLETS PO PRN (21:42)
[2019-09-23] MEDS: THIAMINE HCL 100 MG TABLET (FP) PO SCH (21:42)
[2019-09-24] MEDS ORDERED: METHADONE HCL 10 MG TABLET PO SCH (06:00)
[2019-09-24] MEDS ORDERED: METHADONE HCL 40 MG DISPERSABLE TABLET ONE (06:02)
[2019-09-24] MEDS ORDERED: METHADONE HCL 10 MG TABLET ONE (06:02)
[2019-09-24] MEDS: METHADONE 40 MG, METHADONE 30 MG PO SCH (06:07)
[2019-09-24] MEDS: CLOPIDOGREL BISULFATE 75 MG TABLET (FP) PO SCH (06:07)
[2019-09-24] MEDS: PRENATAL VITAMINS W/ FOLIC ACID TABLET (FP) PO SCH (10:44)
[2019-09-24] MEDS: CITALOPRAM HYDROBROMIDE 20 MG TABLET PO SCH (10:44)
[2019-09-24] MEDS: FAMOTIDINE 20 MG TABLET PO SCH ×2 (10:44→21:11)
[2019-09-24] MEDS: ASPIRIN 81 MG CHEWABLE TABLETS PO SCH (10:44)
[2019-09-24] MEDS: NICOTINE 7 MG/24 HOURS TOPICAL PATCH TD SCH (10:44)
[2019-09-24] MEDS: hydrOXYzine PAMOATE 25 MG CAPSULE (FP) PO PRN ×2 (10:45→21:12)
--- NOTE | 2019-09-24 15:43 | PN ---
[facility] Progress Note Note: Pt c/o bruise to right forearm stating after phlebotomy blood draw a few days ago. Reports mild tenderness to area. Vital Signs - 24 hr 09/24/19 09/24/19 00:30 07:17 Temperature 97.7 F Pulse Rate 67 Respiratory 18 18 Rate Blood Pressure 144/72 Alert o x 3 nad oob ambulating with steady gait skin:Right forearm with ecchymotic skin area, no open skin or drainage, no swelling. A/p skin ecchymosis, right forearm Apply ice lonnie as needed.
[2019-09-24] MEDS: THIAMINE HCL 100 MG TABLET (FP) PO SCH (21:11)
[2019-09-24] MEDS: ATORVASTATIN CA 40 MG TABLET (FP) PO SCH (21:11)
[2019-09-24] MEDS: MELATONIN 5 MG TABLETS PO PRN (21:11)
[2019-09-25] MEDS ORDERED: METHADONE HCL 10 MG TABLET ONE (05:02)
[2019-09-25] MEDS ORDERED: METHADONE HCL 40 MG DISPERSABLE TABLET ONE (05:02)
[2019-09-25] MEDS: CLOPIDOGREL BISULFATE 75 MG TABLET (FP) PO SCH (06:03)
[2019-09-25] MEDS: METHADONE 40 MG, METHADONE 30 MG PO SCH (06:03)
[2019-09-25] MEDS: ASPIRIN 81 MG CHEWABLE TABLETS PO SCH (09:36)
[2019-09-25] MEDS: CITALOPRAM HYDROBROMIDE 20 MG TABLET PO SCH (09:36)
[2019-09-25] MEDS: PRENATAL VITAMINS W/ FOLIC ACID TABLET (FP) PO SCH (09:36)
[2019-09-25] MEDS: FAMOTIDINE 20 MG TABLET PO SCH ×2 (09:36→21:13)
[2019-09-25] MEDS: ACETAMINOPHEN 325 MG TABLET (FP) PO PRN (09:36)
[2019-09-25] MEDS: NICOTINE 7 MG/24 HOURS TOPICAL PATCH TD SCH (09:38)
[2019-09-25] MEDS: hydrOXYzine PAMOATE 25 MG CAPSULE (FP) PO PRN (15:27)
[2019-09-25] MEDS: ATORVASTATIN CA 40 MG TABLET (FP) PO SCH (21:12)
[2019-09-25] MEDS: MELATONIN 5 MG TABLETS PO PRN (21:13)
[2019-09-25] MEDS: THIAMINE HCL 100 MG TABLET (FP) PO SCH (21:13)
[2019-09-26] MEDS ORDERED: METHADONE HCL 40 MG DISPERSABLE TABLET ONE (05:46)
[2019-09-26] MEDS ORDERED: METHADONE HCL 10 MG TABLET ONE (05:46)
[2019-09-26] MEDS: CLOPIDOGREL BISULFATE 75 MG TABLET (FP) PO SCH (06:28)
[2019-09-26] MEDS: METHADONE 40 MG, METHADONE 30 MG PO SCH (06:28)
[2019-09-26] MEDS: ASPIRIN 81 MG CHEWABLE TABLETS PO SCH (10:27)
[2019-09-26] MEDS: NICOTINE 7 MG/24 HOURS TOPICAL PATCH TD SCH (10:27)
[2019-09-26] MEDS: CITALOPRAM HYDROBROMIDE 20 MG TABLET PO SCH (10:27)
[2019-09-26] MEDS: FAMOTIDINE 20 MG TABLET PO SCH ×2 (10:27→21:24)
[2019-09-26] MEDS: PRENATAL VITAMINS W/ FOLIC ACID TABLET (FP) PO SCH (10:27)
[2019-09-26] MEDS: hydrOXYzine PAMOATE 25 MG CAPSULE (FP) PO PRN ×2 (10:27→21:24)
[2019-09-26] MEDS: ATORVASTATIN CA 40 MG TABLET (FP) PO SCH (21:23)
[2019-09-26] MEDS: MELATONIN 5 MG TABLETS PO PRN (21:24)
[2019-09-26] MEDS: THIAMINE HCL 100 MG TABLET (FP) PO SCH (21:25)
[2019-09-27] MEDS ORDERED: METHADONE HCL 40 MG DISPERSABLE TABLET ONE (04:36)
[2019-09-27] MEDS ORDERED: METHADONE HCL 10 MG TABLET ONE (04:36)
[2019-09-27] MEDS: CLOPIDOGREL BISULFATE 75 MG TABLET (FP) PO SCH (06:08)
[2019-09-27] MEDS: METHADONE 40 MG, METHADONE 30 MG PO SCH (06:09)
[2019-09-27] MEDS: ASPIRIN 81 MG CHEWABLE TABLETS PO SCH (10:37)
[2019-09-27] MEDS: NICOTINE 7 MG/24 HOURS TOPICAL PATCH TD SCH (10:37)
[2019-09-27] MEDS: CITALOPRAM HYDROBROMIDE 20 MG TABLET PO SCH (10:37)
[2019-09-27] MEDS: PRENATAL VITAMINS W/ FOLIC ACID TABLET (FP) PO SCH (10:37)
[2019-09-27] MEDS: FAMOTIDINE 20 MG TABLET PO SCH ×2 (10:37→21:45)
--- NOTE | 2019-09-27 11:31 | PN ---
[facility] Progress Note Note: Patient complains of experiencing difficulty to sleep despite taking Melatonin 10 mg/hs. Will start Belsomra 10 mg/hs prn for insomnia
[2019-09-27] MEDS: ATORVASTATIN CA 40 MG TABLET (FP) PO SCH (21:45)
[2019-09-27] MEDS: SUVOREXANT 10 MG TABLET PO PRN (21:47)
[2019-09-27] MEDS: THIAMINE HCL 100 MG TABLET (FP) PO SCH (21:47)
[2019-09-28] MEDS ORDERED: METHADONE HCL 40 MG DISPERSABLE TABLET ONE (04:27)
[2019-09-28] MEDS ORDERED: METHADONE HCL 10 MG TABLET ONE (04:27)
[2019-09-28] MEDS: METHADONE 40 MG, METHADONE 30 MG PO SCH (06:09)
[2019-09-28] MEDS: CLOPIDOGREL BISULFATE 75 MG TABLET (FP) PO SCH (06:10)
[2019-09-28] MEDS: PRENATAL VITAMINS W/ FOLIC ACID TABLET (FP) PO SCH (10:37)
[2019-09-28] MEDS: CITALOPRAM HYDROBROMIDE 20 MG TABLET PO SCH (10:37)
[2019-09-28] MEDS: FAMOTIDINE 20 MG TABLET PO SCH ×2 (10:37→21:10)
[2019-09-28] MEDS: NICOTINE 7 MG/24 HOURS TOPICAL PATCH TD SCH (10:37)
[2019-09-28] MEDS: ASPIRIN 81 MG CHEWABLE TABLETS PO SCH (10:37)
[2019-09-28] MEDS: THIAMINE HCL 100 MG TABLET (FP) PO SCH (21:10)
[2019-09-28] MEDS: ATORVASTATIN CA 40 MG TABLET (FP) PO SCH (21:10)
[2019-09-28] MEDS: MELATONIN 5 MG TABLETS PO PRN (21:10)
[2019-09-28] MEDS: SUVOREXANT 10 MG TABLET PO PRN (21:10)
[2019-09-29] MEDS ORDERED: METHADONE HCL 40 MG DISPERSABLE TABLET ONE (04:55)
[2019-09-29] MEDS ORDERED: METHADONE HCL 10 MG TABLET ONE (04:55)
[2019-09-29] MEDS: CLOPIDOGREL BISULFATE 75 MG TABLET (FP) PO SCH (06:07)
[2019-09-29] MEDS: METHADONE 40 MG, METHADONE 30 MG PO SCH (06:07)
[2019-09-29] MEDS: FAMOTIDINE 20 MG TABLET PO SCH ×2 (10:16→21:27)
[2019-09-29] MEDS: PRENATAL VITAMINS W/ FOLIC ACID TABLET (FP) PO SCH (10:16)
[2019-09-29] MEDS: CITALOPRAM HYDROBROMIDE 20 MG TABLET PO SCH (10:16)
[2019-09-29] MEDS: NICOTINE 7 MG/24 HOURS TOPICAL PATCH TD SCH (10:16)
[2019-09-29] MEDS: ASPIRIN 81 MG CHEWABLE TABLETS PO SCH (10:16)
[2019-09-29] MEDS ORDERED: ATORVASTATIN CA 20 MG TABLET (FP) ONE (19:52)
[2019-09-29] MEDS: ATORVASTATIN CA 40 MG TABLET (FP) PO SCH (21:27)
[2019-09-29] MEDS: MELATONIN 5 MG TABLETS PO PRN (21:27)
[2019-09-29] MEDS: THIAMINE HCL 100 MG TABLET (FP) PO SCH (21:27)
[2019-09-29] MEDS: SUVOREXANT 10 MG TABLET PO PRN (21:29)
[2019-09-30] MEDS ORDERED: METHADONE HCL 10 MG TABLET ONE (05:36)
[2019-09-30] MEDS ORDERED: METHADONE HCL 40 MG DISPERSABLE TABLET ONE (05:37)
[2019-09-30] MEDS ORDERED: METHADONE HCL 10 MG TABLET PO SCH (06:00)
[2019-09-30] MEDS: METHADONE 40 MG, METHADONE 30 MG PO SCH (06:04)
[2019-09-30] MEDS: CLOPIDOGREL BISULFATE 75 MG TABLET (FP) PO SCH (06:05)
[2019-09-30] MEDS: NICOTINE 7 MG/24 HOURS TOPICAL PATCH TD SCH (10:26)
[2019-09-30] MEDS: CITALOPRAM HYDROBROMIDE 20 MG TABLET PO SCH (10:26)
[2019-09-30] MEDS: ASPIRIN 81 MG CHEWABLE TABLETS PO SCH (10:26)
[2019-09-30] MEDS: PRENATAL VITAMINS W/ FOLIC ACID TABLET (FP) PO SCH (10:26)
[2019-09-30] MEDS: FAMOTIDINE 20 MG TABLET PO SCH ×2 (10:26→21:09)
[2019-09-30] MEDS: ATORVASTATIN CA 40 MG TABLET (FP) PO SCH (21:09)
[2019-09-30] MEDS: SUVOREXANT 10 MG TABLET PO PRN (21:10)
[2019-09-30] MEDS: THIAMINE HCL 100 MG TABLET (FP) PO SCH (21:10)
[2019-10-01] MEDS ORDERED: METHADONE HCL 40 MG DISPERSABLE TABLET ONE (05:48)
[2019-10-01] MEDS ORDERED: METHADONE HCL 10 MG TABLET ONE (05:48)
[2019-10-01] MEDS: METHADONE 40 MG, METHADONE 30 MG PO SCH (06:16)
[2019-10-01] MEDS: CLOPIDOGREL BISULFATE 75 MG TABLET (FP) PO SCH (06:16)
[2019-10-01] MEDS: CITALOPRAM HYDROBROMIDE 20 MG TABLET PO SCH (09:45)
[2019-10-01] MEDS: PRENATAL VITAMINS W/ FOLIC ACID TABLET (FP) PO SCH (09:45)
[2019-10-01] MEDS: ASPIRIN 81 MG CHEWABLE TABLETS PO SCH (09:46)
[2019-10-01] MEDS: ACETAMINOPHEN 325 MG TABLET (FP) PO PRN (09:46)
[2019-10-01] MEDS: FAMOTIDINE 20 MG TABLET PO SCH ×2 (09:47→21:11)
[2019-10-01] MEDS: NICOTINE 7 MG/24 HOURS TOPICAL PATCH TD SCH (09:47)
[2019-10-01] MEDS: ATORVASTATIN CA 40 MG TABLET (FP) PO SCH (21:11)
[2019-10-01] MEDS: THIAMINE HCL 100 MG TABLET (FP) PO SCH (21:11)
[2019-10-01] MEDS: MELATONIN 5 MG TABLETS PO PRN (21:13)
[2019-10-02] MEDS ORDERED: METHADONE HCL 40 MG DISPERSABLE TABLET ONE (05:26)
[2019-10-02] MEDS ORDERED: METHADONE HCL 10 MG TABLET ONE (05:26)
[2019-10-02] MEDS: METHADONE 40 MG, METHADONE 30 MG PO SCH (06:32)
[2019-10-02] MEDS: CLOPIDOGREL BISULFATE 75 MG TABLET (FP) PO SCH (06:32)
[2019-10-02] MEDS: NICOTINE 7 MG/24 HOURS TOPICAL PATCH TD SCH (11:01)
[2019-10-02] MEDS: ASPIRIN 81 MG CHEWABLE TABLETS PO SCH (11:01)
[2019-10-02] MEDS: PRENATAL VITAMINS W/ FOLIC ACID TABLET (FP) PO SCH (11:01)
[2019-10-02] MEDS: FAMOTIDINE 20 MG TABLET PO SCH ×2 (11:01→21:54)
[2019-10-02] MEDS: CITALOPRAM HYDROBROMIDE 20 MG TABLET PO SCH (11:02)
[2019-10-02] MEDS: hydrOXYzine PAMOATE 25 MG CAPSULE (FP) PO PRN (11:03)
[2019-10-02] MEDS: THIAMINE HCL 100 MG TABLET (FP) PO SCH (21:54)
[2019-10-02] MEDS: ATORVASTATIN CA 40 MG TABLET (FP) PO SCH (21:54)
[2019-10-02] MEDS: MELATONIN 5 MG TABLETS PO PRN (21:54)
[2019-10-03] MEDS ORDERED: METHADONE HCL 10 MG TABLET ONE (05:23)
[2019-10-03] MEDS ORDERED: METHADONE HCL 40 MG DISPERSABLE TABLET ONE (05:23)
[2019-10-03] MEDS: METHADONE 40 MG, METHADONE 30 MG PO SCH (06:15)
[2019-10-03] MEDS: CLOPIDOGREL BISULFATE 75 MG TABLET (FP) PO SCH (06:15)
[2019-10-03] MEDS: CITALOPRAM HYDROBROMIDE 20 MG TABLET PO SCH (10:48)
[2019-10-03] MEDS: ASPIRIN 81 MG CHEWABLE TABLETS PO SCH (10:48)
[2019-10-03] MEDS: FAMOTIDINE 20 MG TABLET PO SCH ×2 (10:48→21:10)
[2019-10-03] MEDS: PRENATAL VITAMINS W/ FOLIC ACID TABLET (FP) PO SCH (10:48)
[2019-10-03] MEDS: NICOTINE 7 MG/24 HOURS TOPICAL PATCH TD SCH (10:48)
[2019-10-03] MEDS: THIAMINE HCL 100 MG TABLET (FP) PO SCH (21:09)
[2019-10-03] MEDS: ATORVASTATIN CA 40 MG TABLET (FP) PO SCH (21:09)
[2019-10-03] MEDS: MELATONIN 5 MG TABLETS PO PRN (21:10)
[2019-10-04] MEDS ORDERED: METHADONE HCL 10 MG TABLET ONE (04:16)
[2019-10-04] MEDS ORDERED: METHADONE HCL 40 MG DISPERSABLE TABLET ONE (04:16)
[2019-10-04] MEDS: CLOPIDOGREL BISULFATE 75 MG TABLET (FP) PO SCH (06:02)
[2019-10-04] MEDS: METHADONE 40 MG, METHADONE 30 MG PO SCH (06:03)
[2019-10-04] MEDS: NICOTINE 7 MG/24 HOURS TOPICAL PATCH TD SCH (10:36)
[2019-10-04] MEDS: ASPIRIN 81 MG CHEWABLE TABLETS PO SCH (10:36)
[2019-10-04] MEDS: PRENATAL VITAMINS W/ FOLIC ACID TABLET (FP) PO SCH (10:36)
[2019-10-04] MEDS: FAMOTIDINE 20 MG TABLET PO SCH ×2 (10:36→21:07)
[2019-10-04] MEDS: CITALOPRAM HYDROBROMIDE 20 MG TABLET PO SCH (10:36)
[2019-10-04] MEDS: ATORVASTATIN CA 40 MG TABLET (FP) PO SCH (21:07)
[2019-10-04] MEDS: MELATONIN 5 MG TABLETS PO PRN (21:08)
[2019-10-04] MEDS: THIAMINE HCL 100 MG TABLET (FP) PO SCH (21:08)
[2019-10-05] MEDS ORDERED: METHADONE HCL 10 MG TABLET ONE (04:43)
[2019-10-05] MEDS ORDERED: METHADONE HCL 40 MG DISPERSABLE TABLET ONE (04:43)
[2019-10-05] MEDS: CLOPIDOGREL BISULFATE 75 MG TABLET (FP) PO SCH (06:11)
[2019-10-05] MEDS: METHADONE 40 MG, METHADONE 30 MG PO SCH (06:12)
[2019-10-05] MEDS: PRENATAL VITAMINS W/ FOLIC ACID TABLET (FP) PO SCH (10:55)
[2019-10-05] MEDS: CITALOPRAM HYDROBROMIDE 20 MG TABLET PO SCH (10:55)
[2019-10-05] MEDS: ASPIRIN 81 MG CHEWABLE TABLETS PO SCH (10:55)
[2019-10-05] MEDS: FAMOTIDINE 20 MG TABLET PO SCH ×2 (10:56→21:35)
[2019-10-05] MEDS: NICOTINE 7 MG/24 HOURS TOPICAL PATCH TD SCH (10:56)
[2019-10-05] MEDS: hydrOXYzine PAMOATE 25 MG CAPSULE (FP) PO PRN ×2 (10:57→21:35)
[2019-10-05] MEDS: ATORVASTATIN CA 40 MG TABLET (FP) PO SCH (21:35)
[2019-10-05] MEDS: THIAMINE HCL 100 MG TABLET (FP) PO SCH (21:36)
[2019-10-06] MEDS ORDERED: METHADONE HCL 10 MG TABLET ONE (04:27)
[2019-10-06] MEDS ORDERED: METHADONE HCL 40 MG DISPERSABLE TABLET ONE (04:28)
[2019-10-06] MEDS: METHADONE 40 MG, METHADONE 30 MG PO SCH (06:32)
[2019-10-06] MEDS: CLOPIDOGREL BISULFATE 75 MG TABLET (FP) PO SCH (06:33)
[2019-10-06] MEDS: NICOTINE 7 MG/24 HOURS TOPICAL PATCH TD SCH (10:26)
[2019-10-06] MEDS: hydrOXYzine PAMOATE 25 MG CAPSULE (FP) PO PRN ×2 (10:26→21:53)
[2019-10-06] MEDS: ASPIRIN 81 MG CHEWABLE TABLETS PO SCH (10:26)
[2019-10-06] MEDS: CITALOPRAM HYDROBROMIDE 20 MG TABLET PO SCH (10:26)
[2019-10-06] MEDS: FAMOTIDINE 20 MG TABLET PO SCH ×2 (10:26→21:52)
[2019-10-06] MEDS: PRENATAL VITAMINS W/ FOLIC ACID TABLET (FP) PO SCH (10:26)
[2019-10-06] MEDS: ATORVASTATIN CA 40 MG TABLET (FP) PO SCH (21:52)
[2019-10-06] MEDS: THIAMINE HCL 100 MG TABLET (FP) PO SCH (21:52)
[2019-10-06] MEDS: MELATONIN 5 MG TABLETS PO PRN (21:53)
[2019-10-07] MEDS ORDERED: METHADONE HCL 40 MG DISPERSABLE TABLET ONE (05:05)
[2019-10-07] MEDS ORDERED: METHADONE HCL 10 MG TABLET ONE (05:05)
[2019-10-07] MEDS: METHADONE 40 MG, METHADONE 30 MG PO SCH (05:56)
[2019-10-07] MEDS: CLOPIDOGREL BISULFATE 75 MG TABLET (FP) PO SCH (06:38)
[2019-10-07] MEDS: PRENATAL VITAMINS W/ FOLIC ACID TABLET (FP) PO SCH (10:41)
[2019-10-07] MEDS: ASPIRIN 81 MG CHEWABLE TABLETS PO SCH (10:41)
[2019-10-07] MEDS: FAMOTIDINE 20 MG TABLET PO SCH ×2 (10:41→21:46)
[2019-10-07] MEDS: NICOTINE 7 MG/24 HOURS TOPICAL PATCH TD SCH (10:41)
[2019-10-07] MEDS: CITALOPRAM HYDROBROMIDE 20 MG TABLET PO SCH (10:41)
[2019-10-07] MEDS: THIAMINE HCL 100 MG TABLET (FP) PO SCH (21:46)
[2019-10-07] MEDS: ATORVASTATIN CA 40 MG TABLET (FP) PO SCH (21:46)
[2019-10-07] MEDS: hydrOXYzine PAMOATE 25 MG CAPSULE (FP) PO PRN (21:46)
[2019-10-07] MEDS: MELATONIN 5 MG TABLETS PO PRN (21:47)
[2019-10-08] MEDS ORDERED: METHADONE HCL 40 MG DISPERSABLE TABLET ONE (06:28)
[2019-10-08] MEDS ORDERED: METHADONE HCL 10 MG TABLET ONE (06:28)
[2019-10-08] MEDS: METHADONE 40 MG, METHADONE 30 MG PO SCH (06:29)
[2019-10-08] MEDS: CLOPIDOGREL BISULFATE 75 MG TABLET (FP) PO SCH (06:29)
[2019-10-08] MEDS: FAMOTIDINE 20 MG TABLET PO SCH ×2 (10:45→21:37)
[2019-10-08] MEDS: PRENATAL VITAMINS W/ FOLIC ACID TABLET (FP) PO SCH (10:45)
[2019-10-08] MEDS: ASPIRIN 81 MG CHEWABLE TABLETS PO SCH (10:45)
[2019-10-08] MEDS: CITALOPRAM HYDROBROMIDE 20 MG TABLET PO SCH (10:45)
[2019-10-08] MEDS: NICOTINE 7 MG/24 HOURS TOPICAL PATCH TD SCH (10:46)
[2019-10-08] MEDS: DOCUSATE SODIUM 100 MG CAPSULE (FP) PO SCH (21:37)
[2019-10-08] MEDS: ATORVASTATIN CA 40 MG TABLET (FP) PO SCH (21:37)
[2019-10-08] MEDS: hydrOXYzine PAMOATE 25 MG CAPSULE (FP) PO PRN (21:38)
[2019-10-08] MEDS: MELATONIN 5 MG TABLETS PO PRN (21:38)
[2019-10-08] MEDS: THIAMINE HCL 100 MG TABLET (FP) PO SCH (21:39)
[2019-10-09] MEDS ORDERED: METHADONE HCL 10 MG TABLET ONE (05:47)
[2019-10-09] MEDS ORDERED: METHADONE HCL 40 MG DISPERSABLE TABLET ONE (05:47)
[2019-10-09] MEDS: METHADONE 40 MG, METHADONE 30 MG PO SCH (05:48)
[2019-10-09] MEDS: CLOPIDOGREL BISULFATE 75 MG TABLET (FP) PO SCH (06:56)
[2019-10-09] MEDS: ASPIRIN 81 MG CHEWABLE TABLETS PO SCH (10:39)
[2019-10-09] MEDS: FAMOTIDINE 20 MG TABLET PO SCH ×2 (10:39→21:32)
[2019-10-09] MEDS: NICOTINE 7 MG/24 HOURS TOPICAL PATCH TD SCH (10:39)
[2019-10-09] MEDS: PRENATAL VITAMINS W/ FOLIC ACID TABLET (FP) PO SCH (10:39)
[2019-10-09] MEDS: CITALOPRAM HYDROBROMIDE 20 MG TABLET PO SCH (10:39)
[2019-10-09] MEDS: ATORVASTATIN CA 40 MG TABLET (FP) PO SCH (21:31)
[2019-10-09] MEDS: DOCUSATE SODIUM 100 MG CAPSULE (FP) PO SCH (21:31)
[2019-10-09] MEDS: THIAMINE HCL 100 MG TABLET (FP) PO SCH (21:32)
[2019-10-09] MEDS: hydrOXYzine PAMOATE 25 MG CAPSULE (FP) PO PRN (21:32)
[2019-10-09] MEDS: MELATONIN 5 MG TABLETS PO PRN (21:32)
[2019-10-10] MEDS ORDERED: METHADONE HCL 40 MG DISPERSABLE TABLET ONE (04:47)
[2019-10-10] MEDS ORDERED: METHADONE HCL 10 MG TABLET ONE (04:47)
[2019-10-10] MEDS: METHADONE 40 MG, METHADONE 30 MG PO SCH (06:11)
[2019-10-10] MEDS: CLOPIDOGREL BISULFATE 75 MG TABLET (FP) PO SCH (06:11)
[2019-10-10] MEDS: NICOTINE 7 MG/24 HOURS TOPICAL PATCH TD SCH (10:44)
[2019-10-10] MEDS: ASPIRIN 81 MG CHEWABLE TABLETS PO SCH (10:44)
[2019-10-10] MEDS: CITALOPRAM HYDROBROMIDE 20 MG TABLET PO SCH (10:44)
[2019-10-10] MEDS: FAMOTIDINE 20 MG TABLET PO SCH ×2 (10:45→21:45)
[2019-10-10] MEDS: PRENATAL VITAMINS W/ FOLIC ACID TABLET (FP) PO SCH (10:45)
[2019-10-10] MEDS: hydrOXYzine PAMOATE 25 MG CAPSULE (FP) PO PRN ×2 (10:46→21:48)
[2019-10-10] MEDS: ATORVASTATIN CA 40 MG TABLET (FP) PO SCH (21:45)
[2019-10-10] MEDS: THIAMINE HCL 100 MG TABLET (FP) PO SCH (21:45)
[2019-10-10] MEDS: DOCUSATE SODIUM 100 MG CAPSULE (FP) PO SCH (22:01)
[2019-10-11] MEDS ORDERED: METHADONE HCL 10 MG TABLET ONE (05:25)
[2019-10-11] MEDS ORDERED: METHADONE HCL 40 MG DISPERSABLE TABLET ONE (05:25)
[2019-10-11] MEDS: CLOPIDOGREL BISULFATE 75 MG TABLET (FP) PO SCH (06:18)
[2019-10-11] MEDS: METHADONE 40 MG, METHADONE 30 MG PO SCH (06:18)
[2019-10-11] MEDS: PRENATAL VITAMINS W/ FOLIC ACID TABLET (FP) PO SCH (09:28)
[2019-10-11] MEDS: NICOTINE 7 MG/24 HOURS TOPICAL PATCH TD SCH (09:28)
[2019-10-11] MEDS: FAMOTIDINE 20 MG TABLET PO SCH ×2 (09:28→21:46)
[2019-10-11] MEDS: ASPIRIN 81 MG CHEWABLE TABLETS PO SCH (09:28)
[2019-10-11] MEDS: CITALOPRAM HYDROBROMIDE 20 MG TABLET PO SCH (09:28)
[2019-10-11] MEDS: hydrOXYzine PAMOATE 25 MG CAPSULE (FP) PO PRN ×2 (09:30→21:45)
[2019-10-11] MEDS: DOCUSATE SODIUM 100 MG CAPSULE (FP) PO SCH (21:45)
[2019-10-11] MEDS: THIAMINE HCL 100 MG TABLET (FP) PO SCH (21:46)
[2019-10-11] MEDS: ATORVASTATIN CA 40 MG TABLET (FP) PO SCH (21:46)
[2019-10-11] MEDS: MELATONIN 5 MG TABLETS PO PRN (21:47)
[2019-10-12] MEDS ORDERED: METHADONE HCL 10 MG TABLET ONE (04:17)
[2019-10-12] MEDS ORDERED: METHADONE HCL 40 MG DISPERSABLE TABLET ONE (04:17)
[2019-10-12] MEDS: METHADONE 40 MG, METHADONE 30 MG PO SCH (05:55)
[2019-10-12] MEDS: CLOPIDOGREL BISULFATE 75 MG TABLET (FP) PO SCH (06:25)
[2019-10-12] MEDS: ASPIRIN 81 MG CHEWABLE TABLETS PO SCH (10:50)
[2019-10-12] MEDS: CITALOPRAM HYDROBROMIDE 20 MG TABLET PO SCH (10:50)
[2019-10-12] MEDS: NICOTINE 7 MG/24 HOURS TOPICAL PATCH TD SCH (10:51)
[2019-10-12] MEDS: FAMOTIDINE 20 MG TABLET PO SCH ×2 (10:51→21:56)
[2019-10-12] MEDS: PRENATAL VITAMINS W/ FOLIC ACID TABLET (FP) PO SCH (10:52)
[2019-10-12] MEDS: hydrOXYzine PAMOATE 25 MG CAPSULE (FP) PO PRN (21:56)
[2019-10-12] MEDS: MELATONIN 5 MG TABLETS PO PRN (21:56)
[2019-10-12] MEDS: DOCUSATE SODIUM 100 MG CAPSULE (FP) PO SCH (21:56)
[2019-10-12] MEDS: ATORVASTATIN CA 40 MG TABLET (FP) PO SCH (21:56)
[2019-10-12] MEDS: THIAMINE HCL 100 MG TABLET (FP) PO SCH (21:58)
[2019-10-13] MEDS ORDERED: METHADONE HCL 10 MG TABLET ONE (04:55)
[2019-10-13] MEDS ORDERED: METHADONE HCL 40 MG DISPERSABLE TABLET ONE (04:55)
[2019-10-13] MEDS ORDERED: METHADONE HCL 10 MG TABLET PO SCH (06:00)
[2019-10-13] MEDS: METHADONE 40 MG, METHADONE 30 MG PO SCH (06:01)
[2019-10-13] MEDS: CLOPIDOGREL BISULFATE 75 MG TABLET (FP) PO SCH (06:01)
[2019-10-13] MEDS: CITALOPRAM HYDROBROMIDE 20 MG TABLET PO SCH (10:34)
[2019-10-13] MEDS: ASPIRIN 81 MG CHEWABLE TABLETS PO SCH (10:34)
[2019-10-13] MEDS: FAMOTIDINE 20 MG TABLET PO SCH ×2 (10:34→21:49)
[2019-10-13] MEDS: NICOTINE 7 MG/24 HOURS TOPICAL PATCH TD SCH (10:34)
[2019-10-13] MEDS: PRENATAL VITAMINS W/ FOLIC ACID TABLET (FP) PO SCH (10:34)
[2019-10-13] MEDS: hydrOXYzine PAMOATE 25 MG CAPSULE (FP) PO PRN ×2 (10:35→21:49)
--- NOTE | 2019-10-13 11:40 | PN ---
[facility] Progress Note Note: Psychiatric nurse practitioner note: Patient scheduled for discharge tomorrow. A 30 day prescription of Celexa 20mg daily was electronically sent to [facility], [address] [place] [address].
[2019-10-13] MEDS: ATORVASTATIN CA 40 MG TABLET (FP) PO SCH (21:48)
[2019-10-13] MEDS: DOCUSATE SODIUM 100 MG CAPSULE (FP) PO SCH (21:49)
[2019-10-13] MEDS: THIAMINE HCL 100 MG TABLET (FP) PO SCH (21:49)
[2019-10-14] MEDS ORDERED: METHADONE HCL 40 MG DISPERSABLE TABLET ONE (04:28)
[2019-10-14] MEDS ORDERED: METHADONE HCL 10 MG TABLET ONE (04:28)
[2019-10-14] MEDS: CLOPIDOGREL BISULFATE 75 MG TABLET (FP) PO SCH (06:13)
[2019-10-14] MEDS: METHADONE 40 MG, METHADONE 30 MG PO SCH (06:13)
[2019-10-14 07:53] VITALS: BP 133/70; PULSE 80; TEMP 97.4
[2019-10-14] MEDS: CITALOPRAM HYDROBROMIDE 20 MG TABLET PO SCH (09:13)
[2019-10-14] MEDS: ASPIRIN 81 MG CHEWABLE TABLETS PO SCH (09:13)
[2019-10-14] MEDS: PRENATAL VITAMINS W/ FOLIC ACID TABLET (FP) PO SCH (09:14)
[2019-10-14] MEDS: NICOTINE 7 MG/24 HOURS TOPICAL PATCH TD SCH (09:14)
[2019-10-14] MEDS: FAMOTIDINE 20 MG TABLET PO SCH (09:14)
--- NOTE | 2019-10-14 09:40 | DS ---
[facility] Rehab Discharge Summary - [facility] Rehab Discharge Summary Admission Date: 09/17/19 Discharge Date: 10/14/19 - History Present History: Alcohol dependence, Cocaine dependence, MMTP, Sedative dependence Additional Comments: Pt is a 54 y/o male with a hx of NATASHA admitted to rehab and scheduled to discharge today. Pt has been referred back [address] to follow up with CD aftercare. Pt reports he has a primary care provider, Dr. Boyd on [place], [place] and a turret punch press operator, Dr. Jim Kimble at [facility] on [address] [place] [address]. Reminded patient to follow up with his primary care and turret punch press operator for medical management of his cormorbid conditions. Pertinent Past History: HTN HLD Hep C(untreated) GERD Hx AR-S/P CABG with 2 stents IVDU Depression/Anxiety disorder Agoraphobia - Discharge Physical Exam Vital Signs: Vital Signs Temperature 97.4 F L 10/14/19 07:52 Pulse Rate 80 10/14/19 07:52 Respiratory Rate 18 10/14/19 07:52 Blood Pressure 133/70 10/14/19 07:52 O2 Sat by Pulse Oximetry (%) Alert o x 3,denies s/h/i nad oob ambulating with steady gait cardiac:s1 s2,rrr lungs:cta,nay. abdomen:+bs,nt,++fatty extremities/skin:no edema;patches of brown discoloration of skin on LE,nay.; skin intact. Pertinent Admission Physical Exam Findings: Laboratory Tests 09/17/19 09/17/19 09/17/19 06:00 06:00 06:00 WBC 8.5 RBC 4.61 Hgb 13.7 Hct 41.0 MCV 89.0 MCH 29.7 MCHC 33.4 RDW 15.5 Plt Count 236 D MPV 10.0 Sodium 143 Potassium 4.3 Chloride 110 H Carbon Dioxide 27 Anion Gap 5 L BUN 13.2 Creatinine 1.0 Est GFR (CKD-EPI)AfAm 99.85 Est GFR (CKD-EPI)NonAf 86.15 Random Glucose 168 H Calcium 9.0 Total Bilirubin 0.2 AST 24 ALT 49 Alkaline Phosphatase 124 H Total Protein 7.1 Albumin 3.2 L RPR Titer HIV 1&2 Antibody Screen Negative HIV P24 Antigen Negative 09/17/19 06:00 WBC RBC Hgb Hct MCV MCH MCHC RDW Plt Count MPV Sodium Potassium Chloride Carbon Dioxide Anion Gap BUN Creatinine Est GFR (CKD-EPI)AfAm Est GFR (CKD-EPI)NonAf Random Glucose Calcium Total Bilirubin AST ALT Alkaline Phosphatase Total Protein Albumin RPR Titer Nonreactive HIV 1&2 Antibody Screen HIV P24 Antigen - Treatment Discharge Condition: Discharge condition good Hospital Course: Rehabilitated safely responded well CD aftercare referral accepted to [facility] Attended most groups and individual sessions while in treatment. - Medication Discharge Medications: Ambulatory Orders Citalopram Hydrobromide [Celexa -] 20 mg PO DAILY #30 tablet 04/11/19 Lisinopril [Prinivil] 5 mg PO DAILY 15 Days #15 tablet 04/11/19 Metoprolol Tartrate [Lopressor -] 25 mg PO BID 30 Days #30 tablet 04/11/19 Ranitidine [Zantac -] 150 mg PO BID 30 Days #30 tablet 04/11/19 Clonidine HCl [Catapres] 0.5 mg PO 09/17/19 Furosemide 20 mg PO DAILY 09/18/19 Citalopram Hydrobromide [Celexa -] 20 mg PO DAILY #30 tablet 10/13/19 Aspirin [ASA -] 81 mg PO DAILY 15 Days #15 tab.chew 10/14/19 Atorvastatin Ca [Lipitor] 80 mg PO HS #15 tablet 10/14/19 Clopidogrel Bisulfate [Plavix -] 75 mg PO DAILY@0800 15 Days #15 tablet Famotidine [Pepcid -] 20 mg PO BID #30 tablet 10/14/19 - Medication-Assisted Treatment (MAT) Medication-Assisted Treatment (MAT): No - Discharge Instructions Diet, activity, other medical instructions: Diet:TITA Activity: oob ad ana maria Other medical instructions:follow up with CD aftercare recommendation as scheduled. Follow up with primary care provider(s) as above within one week after discharge. - Diagnosis (1) Alcohol dependence Current Visit: Yes Status: Chronic Qualifiers: Substance use status: uncomplicated Qualified Code(s): F10.20 - Alcohol dependence, uncomplicated (2) Sedative hypnotic or anxiolytic dependence Current Visit: Yes Status: Chronic (3) Acid reflux Current Visit: Yes Status: Chronic Qualifiers: Esophagitis presence: without esophagitis Qualified Code(s): K21.9 - Gastro -esophageal reflux disease without esophagitis (4) CAD (coronary artery disease) Current Visit: Yes Status: Chronic Qualifiers: Coronary Disease-Associated Artery/Lesion type: [place] artery [place] vs. transplanted heart: [place] heart Associated angina: with stable angina Qualified Code(s): I25.118 - Atherosclerotic heart disease of [place] coronary artery with other forms of angina pectoris (5) Cocaine use disorder Current Visit: Yes Status: Chronic (6) GERD (gastroesophageal reflux disease) Current Visit: Yes Status: Chronic Qualifiers: Esophagitis presence: without esophagitis Qualified Code(s): K21.9 - Gastro -esophageal reflux disease without esophagitis (7) Hepatitis C Current Visit: Yes Status: Chronic Qualifiers: Viral hepatitis chronicity: unspecified Hepatic coma status: without hepatic coma Qualified Code(s): B19.20 - Unspecified viral hepatitis C without hepatic coma (8) Hyperlipidemia Current Visit: Yes Status: Chronic Qualifiers: Hyperlipidemia type: unspecified Qualified Code(s): E78.5 - Hyperlipidemia , unspecified (9) Hypertension Current Visit: Yes Status: Chronic Qualifiers: Hypertension type: essential hypertension Qualified Code(s): I10 - Essential (primary) hypertension (10) IVDU (intravenous drug user) Current Visit: Yes Status: Chronic (11) Methadone maintenance therapy patient Current Visit: Yes Status: Chronic (12) Nicotine dependence Current Visit: Yes Status: Chronic Qualifiers: Nicotine product type: cigarettes Substance use status: uncomplicated Qualified Code(s): F17.210 - Nicotine dependence, cigarettes, uncomplicated (13) History of heart attack Current Visit: Yes Status: Resolved - Follow-up Referral Minutes to complete discharge: 25 - AMA Did Patient Leave Against Medical Advice: No Additional Comments: Pt requests courtesy Rx for Plavix 75 mg po daily stating "I don't have anymore plavix at home but I have the rest". Plavix 75 mg po daily #15; Aspirin 81 mg po daily #15 and Lipitor 80 mg po HS #15;Pepcid 20 mg po BID #30 tabs electronically sent to pt's Pharmacy-[facility] for fiber picker after discharge until pt gets to his primary care. Pt encouraged to follow up with primary care provider for re-evaluation of his medical conditions and medications after rehab.
== END 2019-10-14 10:11 | disposition home or self-care (01) | DRG 772 ==
LOC: YASAS 12:22 → Y5N 15:42
PROVIDERS: ADMIT Allergy & Immunology; ATTEND Allergy & Immunology
PROC: HZ42ZZZ Group Counseling for Substance Abuse Treatment, Cognitive-Behavioral (ICD-10-PCS; principal; 2019-09-17)
DX: F10.20 Alcohol dependence, uncomplicated (principal); F11.20 Opioid dependence, uncomplicated; F13.20 Sedative, hypnotic or anxiolytic dependence, uncomplicated; F14.20 Cocaine dependence, uncomplicated; F17.210 Nicotine dependence, cigarettes, uncomplicated; F19.282 Other psychoactive substance dependence with psychoactive substance-induced sleep disorder; F32.9 Major depressive disorder, single episode, unspecified; F19.280 Other psychoactive substance dependence with psychoactive substance-induced anxiety disorder; F41.8 Other specified anxiety disorders; F40.01 Agoraphobia with panic disorder; I25.10 Atherosclerotic heart disease of native coronary artery without angina pectoris; I10 Essential (primary) hypertension; Z95.1 Presence of aortocoronary bypass graft; Z95.5 Presence of coronary angioplasty implant and graft; I25.2 Old myocardial infarction; K21.9 Gastro-esophageal reflux disease without esophagitis; B18.2 Chronic viral hepatitis C; Z86.69 Personal history of other diseases of the nervous system and sense organs; Z79.02 Long term (current) use of antithrombotics/antiplatelets; Z79.82 Long term (current) use of aspirin; Z91.013 Allergy to seafood
CPT/HCPCS: 36415; 80053; 85027; 86593; 87389

== ENCOUNTER 2020-08-30 14:32 | Inpatient (IN) | payer OTHER ==
[2020-08-30 17:24] VITALS: BMI 32.1
[2020-08-30] MEDS ORDERED: BISMUTH SUBSALICYLATE 524 MG/30 ML UD PO PRN (23:19)
[2020-08-30] MEDS ORDERED: ACETAMINOPHEN 325 MG TABLET (FP) PO PRN (23:19)
[2020-08-30] MEDS ORDERED: METHOCARBAMOL 500 MG TABLET PO PRN (23:19)
[2020-08-30] MEDS ORDERED: NICOTINE POLACRILEX 2 MG GUM BUC PRN (23:19)
[2020-08-30] MEDS ORDERED: ONDANSETRON *ODT* 4 MG TABLET SL PRN (23:19)
[2020-08-30] MEDS ORDERED: IBUPROFEN 400 MG TABLET (FP) PO PRN (23:19)
[2020-08-30] MEDS ORDERED: chlordiazePOXIDE HCL 25 MG CAPSULE PO PRN (23:19)
[2020-08-30] MEDS ORDERED: MAGNESIUM CITRATE 300 ML BOTTLE PO PRN (23:19)
[2020-08-30] MEDS ORDERED: MENTHOL/PHENOL 1 EACH UD MM PRN (23:19)
[2020-08-30] MEDS ORDERED: MAGNESIUM HYDROX 2400MG/30ML ORAL SUSPENSION 30 ML CUP PO PRN (23:19)
[2020-08-31] MEDS: chlordiazePOXIDE HCL 25 MG CAPSULE PO SCH ×5 (00:54→22:25)
[2020-08-31] MEDS: PRENATAL VITAMINS W/ FOLIC ACID TABLET (FP) PO SCH (09:31)
[2020-08-31] MEDS: CITALOPRAM HYDROBROMIDE 20 MG TABLET PO SCH (10:26)
[2020-08-31] MEDS: NICOTINE 21 MG/24 HOURS TOPICAL PATCH TD SCH (10:27)
[2020-08-31] MEDS ORDERED: METHADONE HCL 10 MG TABLET PO ONE ×2 (10:46→11:14)
[2020-08-31] MEDS ORDERED: METHADONE 80 MG, METHADONE 10 MG PO ONE (11:46)
[2020-08-31] MEDS ORDERED: METHADONE HCL 40 MG DISPERSABLE TABLET ONE (11:53)
[2020-08-31] MEDS ORDERED: METHADONE HCL 10 MG TABLET ONE (11:53)
[2020-08-31 12:04] LABS: POTASSIUM 3.8 mmol/L (3.5-5.1)
[2020-08-31 12:10] LABS: BLOOD UREA NITROGEN 17.4 mg/dL (7-18)
[2020-08-31 12:11] LABS: ALBUMIN 2.9 g/dl (3.4-5.0); CALCIUM 8.6 mg/dL (8.5-10.1)
[2020-08-31 12:13] LABS: CREATININE 1.3 mg/dL (0.55-1.3)
[2020-08-31 12:14] LABS: TOT PROT 6.7 g/dl (6.4-8.2)
[2020-08-31 12:16] LABS: HEMATOCRIT 41.2 % (35.4-49); HEMOGLOBIN 13.5 GM/dL (11.7-16.9); MCH 28.8 pg (25.7-33.7); MCHC 32.9 g/dl (32.0-35.9); MEAN CELL VOLUME 87.4 fl (80-96); MEAN PLT VOLUME 9.5 fl (7.5-11.1); PLATELET COUNT 211 K/MM3 (134-434); RBC 4.71 M/mm3 (4.00-5.60); RDW 14.9 % (11.9-15.9); WHITE BLOOD COUNT 7.6 K/mm3 (4.0-10.0)
[2020-08-31] MEDS: MAG HYDROX/AL HYDROX/SIMETH 30 ML UNIT-DOSE CUP PO PRN (17:09)
[2020-08-31] MEDS: hydrOXYzine PAMOATE 50 MG CAPSULE (FP) PO PRN (18:18)
[2020-08-31] MEDS: THIAMINE HCL 100 MG TABLET (FP) PO SCH (22:23)
[2020-08-31] MEDS: MELATONIN 5 MG TABLETS PO SCH (22:23)
[2020-08-31] MEDS: ACETAMINOPHEN 325 MG TABLET (FP) PO PRN (22:24)
[2020-09-01] MEDS: chlordiazePOXIDE HCL 25 MG CAPSULE PO SCH ×4 (06:21→22:37)
[2020-09-01] MEDS ORDERED: METHADONE HCL 10 MG TABLET PO ONE (08:54)
[2020-09-01] MEDS ORDERED: METHADONE 80 MG, METHADONE 10 MG PO ONE (09:18)
[2020-09-01] MEDS ORDERED: METHADONE HCL 10 MG TABLET ONE (09:23)
[2020-09-01] MEDS ORDERED: METHADONE HCL 40 MG DISPERSABLE TABLET ONE (09:24)
[2020-09-01] MEDS: CITALOPRAM HYDROBROMIDE 20 MG TABLET PO SCH (10:14)
[2020-09-01] MEDS: PRENATAL VITAMINS W/ FOLIC ACID TABLET (FP) PO SCH (10:14)
[2020-09-01] MEDS: NICOTINE 21 MG/24 HOURS TOPICAL PATCH TD SCH (10:16)
[2020-09-01] MEDS ORDERED: MASKS NR ONE (15:25)
[2020-09-01] MEDS: MAG HYDROX/AL HYDROX/SIMETH 30 ML UNIT-DOSE CUP PO PRN (18:07)
[2020-09-01] MEDS: MELATONIN 5 MG TABLETS PO SCH (22:36)
[2020-09-01] MEDS: THIAMINE HCL 100 MG TABLET (FP) PO SCH (22:36)
[2020-09-02] MEDS ORDERED: chlordiazePOXIDE HCL 10 MG CAPSULE PO PRN
[2020-09-02] MEDS: MAG HYDROX/AL HYDROX/SIMETH 30 ML UNIT-DOSE CUP PO PRN (01:12)
[2020-09-02] MEDS ORDERED: METHADONE HCL 40 MG DISPERSABLE TABLET ONE (05:38)
[2020-09-02] MEDS ORDERED: METHADONE HCL 10 MG TABLET ONE (05:38)
[2020-09-02] MEDS: METHADONE 80 MG, METHADONE 10 MG PO SCH (05:39)
[2020-09-02] MEDS: chlordiazePOXIDE HCL 10 MG CAPSULE PO SCH ×4 (05:39→22:36)
[2020-09-02] MEDS ORDERED: METHADONE HCL 10 MG TABLET PO SCH (06:00)
[2020-09-02] MEDS: PRENATAL VITAMINS W/ FOLIC ACID TABLET (FP) PO SCH (10:34)
[2020-09-02] MEDS: NICOTINE 21 MG/24 HOURS TOPICAL PATCH TD SCH (10:34)
[2020-09-02] MEDS: CITALOPRAM HYDROBROMIDE 20 MG TABLET PO SCH (10:34)
[2020-09-02] MEDS: hydrOXYzine PAMOATE 50 MG CAPSULE (FP) PO PRN ×2 (18:35→22:35)
[2020-09-02] MEDS: MELATONIN 5 MG TABLETS PO SCH (22:35)
[2020-09-02] MEDS: THIAMINE HCL 100 MG TABLET (FP) PO SCH (22:35)
[2020-09-03] MEDS ORDERED: METHADONE HCL 10 MG TABLET ONE (03:54)
[2020-09-03] MEDS ORDERED: METHADONE HCL 40 MG DISPERSABLE TABLET ONE (03:55)
[2020-09-03] MEDS: METHADONE 80 MG, METHADONE 10 MG PO SCH (05:35)
[2020-09-03] MEDS: chlordiazePOXIDE HCL 10 MG CAPSULE PO SCH ×2 (05:36→17:49)
[2020-09-03] MEDS: NICOTINE 21 MG/24 HOURS TOPICAL PATCH TD SCH (10:20)
[2020-09-03] MEDS: CITALOPRAM HYDROBROMIDE 20 MG TABLET PO SCH (10:20)
[2020-09-03] MEDS: PRENATAL VITAMINS W/ FOLIC ACID TABLET (FP) PO SCH (10:20)
[2020-09-03] MEDS: ACETAMINOPHEN 325 MG TABLET (FP) PO PRN (10:22)
[2020-09-03] MEDS: MAG HYDROX/AL HYDROX/SIMETH 30 ML UNIT-DOSE CUP PO PRN (10:22)
[2020-09-03] MEDS: FAMOTIDINE 20 MG TABLET PO SCH ×2 (11:41→22:16)
[2020-09-03] MEDS: MELATONIN 5 MG TABLETS PO SCH (22:15)
[2020-09-03] MEDS: THIAMINE HCL 100 MG TABLET (FP) PO SCH (22:15)
[2020-09-04] MEDS ORDERED: METHADONE HCL 10 MG TABLET ONE (04:01)
[2020-09-04] MEDS ORDERED: METHADONE HCL 40 MG DISPERSABLE TABLET ONE (04:02)
[2020-09-04] MEDS ORDERED: chlordiazePOXIDE HCL 10 MG CAPSULE PO ONE (05:00)
[2020-09-04] MEDS: METHADONE 80 MG, METHADONE 10 MG PO SCH (05:41)
[2020-09-04 08:53] VITALS: PULSE 73
[2020-09-04] MEDS: hydrOXYzine PAMOATE 50 MG CAPSULE (FP) PO PRN (10:39)
[2020-09-04] MEDS: CITALOPRAM HYDROBROMIDE 20 MG TABLET PO SCH (10:39)
[2020-09-04] MEDS: FAMOTIDINE 20 MG TABLET PO SCH (10:39)
[2020-09-04] MEDS: NICOTINE 21 MG/24 HOURS TOPICAL PATCH TD SCH (10:39)
[2020-09-04] MEDS: PRENATAL VITAMINS W/ FOLIC ACID TABLET (FP) PO SCH (10:39)
[2020-09-04 12:45] VITALS: BP 120/81; TEMP 97.8
[2020-09-05] MEDS ORDERED: metFORMIN HCL 500 MG TABLET (FP) PO SCH (07:00)
== END 2020-09-04 12:52 | disposition other institution (70) | DRG 773 ==
LOC: YASAS 14:32 → Y6N 22:53
PROVIDERS: ADMIT Allergy & Immunology; ATTEND Allergy & Immunology
PROC: HZ2ZZZZ Detoxification Services for Substance Abuse Treatment (ICD-10-PCS; principal; 2020-08-30)
DX: F10.230 Alcohol dependence with withdrawal, uncomplicated (principal); F13.230 Sedative, hypnotic or anxiolytic dependence with withdrawal, uncomplicated; F14.20 Cocaine dependence, uncomplicated; F11.20 Opioid dependence, uncomplicated; F17.210 Nicotine dependence, cigarettes, uncomplicated; F19.280 Other psychoactive substance dependence with psychoactive substance-induced anxiety disorder; F19.282 Other psychoactive substance dependence with psychoactive substance-induced sleep disorder; F41.1 Generalized anxiety disorder; F32.9 Major depressive disorder, single episode, unspecified; B18.2 Chronic viral hepatitis C; E78.5 Hyperlipidemia, unspecified; K21.9 Gastro-esophageal reflux disease without esophagitis; E11.9 Type 2 diabetes mellitus without complications; I25.118 Atherosclerotic heart disease of native coronary artery with other forms of angina pectoris; I10 Essential (primary) hypertension; I25.2 Old myocardial infarction; Z95.1 Presence of aortocoronary bypass graft; Z95.5 Presence of coronary angioplasty implant and graft; Z79.84 Long term (current) use of oral hypoglycemic drugs; Z62.810 Personal history of physical and sexual abuse in childhood; Z91.013 Allergy to seafood
CPT/HCPCS: 36415; 80053; 82962; 85027; 86780; 93005; 93010; C9803; U0003

== ENCOUNTER 2020-09-04 11:39 | Inpatient (IN) | payer OTHER ==
[2020-09-04] MEDS ORDERED: MAGNESIUM HYDROX 2400MG/30ML ORAL SUSPENSION 30 ML CUP PO PRN (14:56)
[2020-09-04] MEDS ORDERED: LOPERAMIDE HCL 2 MG CAPSULE PO PRN (14:56)
[2020-09-04] MEDS ORDERED: IBUPROFEN 400 MG TABLET (FP) PO PRN (14:56)
[2020-09-04] MEDS ORDERED: MAGNESIUM CITRATE 300 ML BOTTLE PO PRN (14:56)
[2020-09-04] MEDS ORDERED: NICOTINE POLACRILEX 2 MG GUM BUC PRN (14:56)
[2020-09-04] MEDS ORDERED: guaiFENesin 200 MG/10 ML 10 ML UNIT-DOSE CUPS PO PRN (14:56)
[2020-09-04] MEDS ORDERED: MENTHOL/PHENOL 1 EACH UD MM PRN (14:56)
[2020-09-04] MEDS ORDERED: P-EPHED 60MG/TRIPROLIDI 2.5MG TABLET PO PRN (14:56)
[2020-09-04] MEDS: MELATONIN 5 MG TABLETS PO SCH (22:02)
[2020-09-04] MEDS: FAMOTIDINE 20 MG TABLET PO SCH (22:02)
[2020-09-04] MEDS: THIAMINE HCL 100 MG TABLET (FP) PO SCH (22:02)
[2020-09-05] MEDS ORDERED: METHADONE HCL 10 MG TABLET ONE (05:46)
[2020-09-05] MEDS ORDERED: METHADONE HCL 40 MG DISPERSABLE TABLET ONE (05:46)
[2020-09-05] MEDS ORDERED: METHADONE HCL 10 MG TABLET PO SCH (06:00)
[2020-09-05] MEDS: METHADONE 80 MG, METHADONE 10 MG PO SCH (06:01)
[2020-09-05] MEDS: metFORMIN HCL 500 MG TABLET (FP) PO SCH (06:02)
[2020-09-05] MEDS: NICOTINE 21 MG/24 HOURS TOPICAL PATCH TD SCH (10:46)
[2020-09-05] MEDS: PRENATAL VITAMINS W/ FOLIC ACID TABLET (FP) PO SCH (10:46)
[2020-09-05] MEDS: CITALOPRAM HYDROBROMIDE 20 MG TABLET PO SCH (10:46)
[2020-09-05] MEDS: FAMOTIDINE 20 MG TABLET PO SCH ×2 (10:46→21:05)
[2020-09-05] MEDS: THIAMINE HCL 100 MG TABLET (FP) PO SCH (21:05)
[2020-09-05] MEDS: MELATONIN 5 MG TABLETS PO SCH (21:05)
[2020-09-06] MEDS ORDERED: METHADONE HCL 40 MG DISPERSABLE TABLET ONE (03:12)
[2020-09-06] MEDS ORDERED: METHADONE HCL 10 MG TABLET ONE (03:13)
[2020-09-06] MEDS: METHADONE 80 MG, METHADONE 10 MG PO SCH (05:59)
[2020-09-06] MEDS: metFORMIN HCL 500 MG TABLET (FP) PO SCH (06:00)
[2020-09-06] MEDS: NICOTINE 21 MG/24 HOURS TOPICAL PATCH TD SCH (10:27)
[2020-09-06] MEDS: CITALOPRAM HYDROBROMIDE 20 MG TABLET PO SCH (10:27)
[2020-09-06] MEDS: PRENATAL VITAMINS W/ FOLIC ACID TABLET (FP) PO SCH (10:27)
[2020-09-06] MEDS: FAMOTIDINE 20 MG TABLET PO SCH ×2 (10:27→21:27)
[2020-09-06] MEDS: THIAMINE HCL 100 MG TABLET (FP) PO SCH (21:27)
[2020-09-06] MEDS: MELATONIN 5 MG TABLETS PO SCH (21:27)
[2020-09-07] MEDS ORDERED: METHADONE HCL 40 MG DISPERSABLE TABLET ONE (04:01)
[2020-09-07] MEDS ORDERED: METHADONE HCL 10 MG TABLET ONE (04:02)
[2020-09-07] MEDS: METHADONE 80 MG, METHADONE 10 MG PO SCH (06:15)
[2020-09-07] MEDS: metFORMIN HCL 500 MG TABLET (FP) PO SCH (06:15)
[2020-09-07] MEDS: PRENATAL VITAMINS W/ FOLIC ACID TABLET (FP) PO SCH (10:56)
[2020-09-07] MEDS: CITALOPRAM HYDROBROMIDE 20 MG TABLET PO SCH (10:56)
[2020-09-07] MEDS: FAMOTIDINE 20 MG TABLET PO SCH ×2 (10:57→21:08)
[2020-09-07] MEDS: NICOTINE 21 MG/24 HOURS TOPICAL PATCH TD SCH (10:57)
[2020-09-07] MEDS: THIAMINE HCL 100 MG TABLET (FP) PO SCH (21:09)
[2020-09-07] MEDS: MELATONIN 5 MG TABLETS PO SCH (21:09)
[2020-09-08] MEDS ORDERED: METHADONE HCL 40 MG DISPERSABLE TABLET ONE (03:13)
[2020-09-08] MEDS ORDERED: METHADONE HCL 10 MG TABLET ONE (03:13)
[2020-09-08] MEDS: METHADONE 80 MG, METHADONE 10 MG PO SCH (06:20)
[2020-09-08] MEDS: metFORMIN HCL 500 MG TABLET (FP) PO SCH (06:21)
[2020-09-08] MEDS: MAG HYDROX/AL HYDROX/SIMETH 30 ML UNIT-DOSE CUP PO PRN (08:34)
[2020-09-08] MEDS: NICOTINE 21 MG/24 HOURS TOPICAL PATCH TD SCH (10:29)
[2020-09-08] MEDS: PRENATAL VITAMINS W/ FOLIC ACID TABLET (FP) PO SCH (10:29)
[2020-09-08] MEDS: FAMOTIDINE 20 MG TABLET PO SCH ×2 (10:29→21:26)
[2020-09-08] MEDS: hydrOXYzine PAMOATE 25 MG CAPSULE (FP) PO PRN (10:29)
[2020-09-08] MEDS: CITALOPRAM HYDROBROMIDE 20 MG TABLET PO SCH (10:29)
[2020-09-08] MEDS: THIAMINE HCL 100 MG TABLET (FP) PO SCH (21:26)
[2020-09-08] MEDS: MELATONIN 5 MG TABLETS PO SCH (21:26)
[2020-09-09] MEDS ORDERED: METHADONE HCL 40 MG DISPERSABLE TABLET ONE (03:23)
[2020-09-09] MEDS ORDERED: METHADONE HCL 10 MG TABLET ONE (03:23)
[2020-09-09] MEDS: metFORMIN HCL 500 MG TABLET (FP) PO SCH (06:16)
[2020-09-09] MEDS: METHADONE 80 MG, METHADONE 10 MG PO SCH (06:16)
[2020-09-09] MEDS: hydrOXYzine PAMOATE 25 MG CAPSULE (FP) PO PRN (10:12)
[2020-09-09] MEDS: CITALOPRAM HYDROBROMIDE 20 MG TABLET PO SCH (10:12)
[2020-09-09] MEDS: FAMOTIDINE 20 MG TABLET PO SCH ×2 (10:12→21:08)
[2020-09-09] MEDS: PRENATAL VITAMINS W/ FOLIC ACID TABLET (FP) PO SCH (10:12)
[2020-09-09] MEDS: NICOTINE 21 MG/24 HOURS TOPICAL PATCH TD SCH ×2 (10:12→10:14)
[2020-09-09] MEDS ORDERED: MASKS NR ONE (20:03)
[2020-09-09] MEDS: THIAMINE HCL 100 MG TABLET (FP) PO SCH (21:07)
[2020-09-09] MEDS: MELATONIN 5 MG TABLETS PO SCH (21:07)
[2020-09-09] MEDS: ATORVASTATIN CA 80 MG TABLET (FP) PO SCH (21:07)
[2020-09-10] MEDS ORDERED: METHADONE HCL 10 MG TABLET ONE (03:04)
[2020-09-10] MEDS ORDERED: METHADONE HCL 40 MG DISPERSABLE TABLET ONE (03:04)
[2020-09-10] MEDS: METHADONE 80 MG, METHADONE 10 MG PO SCH (05:55)
[2020-09-10] MEDS: metFORMIN HCL 500 MG TABLET (FP) PO SCH (06:32)
[2020-09-10] MEDS: CITALOPRAM HYDROBROMIDE 20 MG TABLET PO SCH (10:41)
[2020-09-10] MEDS: FAMOTIDINE 20 MG TABLET PO SCH ×2 (10:41→21:33)
[2020-09-10] MEDS: PRENATAL VITAMINS W/ FOLIC ACID TABLET (FP) PO SCH (10:41)
[2020-09-10] MEDS: NICOTINE 21 MG/24 HOURS TOPICAL PATCH TD SCH (10:41)
[2020-09-10] MEDS: LISINOPRIL 5 MG TABLET PO SCH (10:41)
[2020-09-10] MEDS: CLOPIDOGREL BISULFATE 75 MG TABLET (FP) PO SCH (10:41)
[2020-09-10] MEDS: hydrOXYzine PAMOATE 25 MG CAPSULE (FP) PO PRN (10:41)
[2020-09-10] MEDS: ASPIRIN COATED 81 MG TABLET.EC PO SCH (10:41)
[2020-09-10] MEDS ORDERED: ATORVASTATIN CA 40 MG TABLET (FP) ONE (19:01)
[2020-09-10] MEDS: THIAMINE HCL 100 MG TABLET (FP) PO SCH (21:33)
[2020-09-10] MEDS: ATORVASTATIN CA 80 MG TABLET (FP) PO SCH (21:33)
[2020-09-10] MEDS: MELATONIN 5 MG TABLETS PO SCH (21:33)
[2020-09-11] MEDS ORDERED: METHADONE HCL 40 MG DISPERSABLE TABLET ONE (06:05)
[2020-09-11] MEDS ORDERED: METHADONE HCL 10 MG TABLET ONE (06:05)
[2020-09-11] MEDS: metFORMIN HCL 500 MG TABLET (FP) PO SCH (06:09)
[2020-09-11] MEDS: METHADONE 80 MG, METHADONE 10 MG PO SCH (06:09)
[2020-09-11] MEDS: ASPIRIN COATED 81 MG TABLET.EC PO SCH (10:27)
[2020-09-11] MEDS: CITALOPRAM HYDROBROMIDE 20 MG TABLET PO SCH (10:27)
[2020-09-11] MEDS: NICOTINE 21 MG/24 HOURS TOPICAL PATCH TD SCH (10:28)
[2020-09-11] MEDS: PRENATAL VITAMINS W/ FOLIC ACID TABLET (FP) PO SCH (10:28)
[2020-09-11] MEDS: CLOPIDOGREL BISULFATE 75 MG TABLET (FP) PO SCH (10:28)
[2020-09-11] MEDS: hydrOXYzine PAMOATE 25 MG CAPSULE (FP) PO PRN (10:28)
[2020-09-11] MEDS: FAMOTIDINE 20 MG TABLET PO SCH ×2 (10:28→22:05)
[2020-09-11] MEDS: LISINOPRIL 5 MG TABLET PO SCH (10:28)
[2020-09-11] MEDS ORDERED: ATORVASTATIN CA 40 MG TABLET (FP) ONE (18:57)
[2020-09-11] MEDS: ATORVASTATIN CA 80 MG TABLET (FP) PO SCH (21:04)
[2020-09-11] MEDS: MELATONIN 5 MG TABLETS PO SCH (21:05)
[2020-09-11] MEDS: THIAMINE HCL 100 MG TABLET (FP) PO SCH (21:05)
[2020-09-12] MEDS ORDERED: METHADONE HCL 40 MG DISPERSABLE TABLET ONE (05:32)
[2020-09-12] MEDS ORDERED: METHADONE HCL 10 MG TABLET ONE (05:32)
[2020-09-12] MEDS: METHADONE 80 MG, METHADONE 10 MG PO SCH (06:16)
[2020-09-12] MEDS: metFORMIN HCL 500 MG TABLET (FP) PO SCH (06:16)
[2020-09-12] MEDS: ASPIRIN COATED 81 MG TABLET.EC PO SCH (10:26)
[2020-09-12] MEDS: PRENATAL VITAMINS W/ FOLIC ACID TABLET (FP) PO SCH (10:26)
[2020-09-12] MEDS: CLOPIDOGREL BISULFATE 75 MG TABLET (FP) PO SCH (10:26)
[2020-09-12] MEDS: FAMOTIDINE 20 MG TABLET PO SCH ×2 (10:27→21:54)
[2020-09-12] MEDS: CITALOPRAM HYDROBROMIDE 20 MG TABLET PO SCH (10:27)
[2020-09-12] MEDS: LISINOPRIL 5 MG TABLET PO SCH (10:27)
[2020-09-12] MEDS: hydrOXYzine PAMOATE 25 MG CAPSULE (FP) PO PRN (10:27)
[2020-09-12] MEDS: NICOTINE 21 MG/24 HOURS TOPICAL PATCH TD SCH (10:27)
[2020-09-12] MEDS: THIAMINE HCL 100 MG TABLET (FP) PO SCH (21:54)
[2020-09-12] MEDS: MELATONIN 5 MG TABLETS PO SCH (21:54)
[2020-09-12] MEDS: ATORVASTATIN CA 80 MG TABLET (FP) PO SCH (21:54)
[2020-09-12] MEDS: ACETAMINOPHEN 325 MG TABLET (FP) PO PRN (23:59)
[2020-09-13] MEDS: MAG HYDROX/AL HYDROX/SIMETH 30 ML UNIT-DOSE CUP PO PRN
[2020-09-13] MEDS ORDERED: METHADONE HCL 10 MG TABLET ONE (03:14)
[2020-09-13] MEDS ORDERED: METHADONE HCL 40 MG DISPERSABLE TABLET ONE (03:14)
[2020-09-13] MEDS: METHADONE 80 MG, METHADONE 10 MG PO SCH (05:49)
[2020-09-13] MEDS: metFORMIN HCL 500 MG TABLET (FP) PO SCH (07:37)
[2020-09-13] MEDS: hydrOXYzine PAMOATE 25 MG CAPSULE (FP) PO PRN (10:15)
[2020-09-13] MEDS: CLOPIDOGREL BISULFATE 75 MG TABLET (FP) PO SCH (10:15)
[2020-09-13] MEDS: PRENATAL VITAMINS W/ FOLIC ACID TABLET (FP) PO SCH (10:15)
[2020-09-13] MEDS: LISINOPRIL 5 MG TABLET PO SCH (10:16)
[2020-09-13] MEDS: ASPIRIN COATED 81 MG TABLET.EC PO SCH (10:16)
[2020-09-13] MEDS: CITALOPRAM HYDROBROMIDE 20 MG TABLET PO SCH (10:16)
[2020-09-13] MEDS: FAMOTIDINE 20 MG TABLET PO SCH ×2 (10:19→21:06)
[2020-09-13] MEDS: NICOTINE 21 MG/24 HOURS TOPICAL PATCH TD SCH (10:19)
[2020-09-13] MEDS: THIAMINE HCL 100 MG TABLET (FP) PO SCH (21:05)
[2020-09-13] MEDS: MELATONIN 5 MG TABLETS PO SCH (21:05)
[2020-09-13] MEDS: ATORVASTATIN CA 80 MG TABLET (FP) PO SCH (21:05)
[2020-09-14] MEDS ORDERED: METHADONE HCL 40 MG DISPERSABLE TABLET ONE (03:20)
[2020-09-14] MEDS ORDERED: METHADONE HCL 10 MG TABLET ONE (03:20)
[2020-09-14] MEDS: METHADONE 80 MG, METHADONE 10 MG PO SCH (05:59)
[2020-09-14] MEDS: metFORMIN HCL 500 MG TABLET (FP) PO SCH (06:00)
[2020-09-14] MEDS: PRENATAL VITAMINS W/ FOLIC ACID TABLET (FP) PO SCH (10:39)
[2020-09-14] MEDS: CLOPIDOGREL BISULFATE 75 MG TABLET (FP) PO SCH (10:39)
[2020-09-14] MEDS: ASPIRIN COATED 81 MG TABLET.EC PO SCH (10:39)
[2020-09-14] MEDS: LISINOPRIL 5 MG TABLET PO SCH (10:39)
[2020-09-14] MEDS: hydrOXYzine PAMOATE 25 MG CAPSULE (FP) PO PRN ×2 (10:39→21:35)
[2020-09-14] MEDS: CITALOPRAM HYDROBROMIDE 20 MG TABLET PO SCH (10:39)
[2020-09-14] MEDS: NICOTINE 21 MG/24 HOURS TOPICAL PATCH TD SCH (10:40)
[2020-09-14] MEDS: FAMOTIDINE 20 MG TABLET PO SCH ×2 (10:40→21:35)
[2020-09-14] MEDS ORDERED: ATORVASTATIN CA 40 MG TABLET (FP) ONE (18:43)
[2020-09-14] MEDS: MELATONIN 5 MG TABLETS PO SCH (21:34)
[2020-09-14] MEDS: THIAMINE HCL 100 MG TABLET (FP) PO SCH (21:34)
[2020-09-14] MEDS: ATORVASTATIN CA 80 MG TABLET (FP) PO SCH (21:35)
[2020-09-15] MEDS ORDERED: METHADONE HCL 10 MG TABLET ONE (06:13)
[2020-09-15] MEDS: METHADONE 80 MG, METHADONE 10 MG PO SCH (06:13)
[2020-09-15] MEDS ORDERED: METHADONE HCL 40 MG DISPERSABLE TABLET ONE (06:13)
[2020-09-15] MEDS: metFORMIN HCL 500 MG TABLET (FP) PO SCH (06:13)
[2020-09-15] MEDS: PRENATAL VITAMINS W/ FOLIC ACID TABLET (FP) PO SCH (10:57)
[2020-09-15] MEDS: FAMOTIDINE 20 MG TABLET PO SCH ×2 (10:57→21:05)
[2020-09-15] MEDS: NICOTINE 21 MG/24 HOURS TOPICAL PATCH TD SCH (10:57)
[2020-09-15] MEDS: CITALOPRAM HYDROBROMIDE 20 MG TABLET PO SCH (10:57)
[2020-09-15] MEDS: LISINOPRIL 5 MG TABLET PO SCH (10:57)
[2020-09-15] MEDS: hydrOXYzine PAMOATE 25 MG CAPSULE (FP) PO PRN (10:57)
[2020-09-15] MEDS: CLOPIDOGREL BISULFATE 75 MG TABLET (FP) PO SCH (10:57)
[2020-09-15] MEDS: ASPIRIN COATED 81 MG TABLET.EC PO SCH (10:57)
[2020-09-15] MEDS ORDERED: ATORVASTATIN CA 40 MG TABLET (FP) ONE (19:10)
[2020-09-15] MEDS: THIAMINE HCL 100 MG TABLET (FP) PO SCH (21:04)
[2020-09-15] MEDS: MELATONIN 5 MG TABLETS PO SCH (21:04)
[2020-09-15] MEDS: ATORVASTATIN CA 80 MG TABLET (FP) PO SCH (21:05)
[2020-09-16] MEDS ORDERED: METHADONE HCL 10 MG TABLET ONE (03:21)
[2020-09-16] MEDS ORDERED: METHADONE HCL 40 MG DISPERSABLE TABLET ONE (03:21)
[2020-09-16] MEDS: METHADONE 80 MG, METHADONE 10 MG PO SCH (06:37)
[2020-09-16] MEDS: metFORMIN HCL 500 MG TABLET (FP) PO SCH (06:37)
[2020-09-16] MEDS: PRENATAL VITAMINS W/ FOLIC ACID TABLET (FP) PO SCH (10:58)
[2020-09-16] MEDS: CITALOPRAM HYDROBROMIDE 20 MG TABLET PO SCH (10:58)
[2020-09-16] MEDS: LISINOPRIL 5 MG TABLET PO SCH (10:58)
[2020-09-16] MEDS: CLOPIDOGREL BISULFATE 75 MG TABLET (FP) PO SCH (10:58)
[2020-09-16] MEDS: ASPIRIN COATED 81 MG TABLET.EC PO SCH (10:58)
[2020-09-16] MEDS: NICOTINE 21 MG/24 HOURS TOPICAL PATCH TD SCH (10:58)
[2020-09-16] MEDS: FAMOTIDINE 20 MG TABLET PO SCH ×2 (10:58→21:23)
[2020-09-16] MEDS: hydrOXYzine PAMOATE 25 MG CAPSULE (FP) PO PRN (10:59)
[2020-09-16] MEDS ORDERED: ATORVASTATIN CA 40 MG TABLET (FP) ONE (18:36)
[2020-09-16] MEDS: THIAMINE HCL 100 MG TABLET (FP) PO SCH (21:23)
[2020-09-16] MEDS: MELATONIN 5 MG TABLETS PO SCH (21:23)
[2020-09-16] MEDS: ATORVASTATIN CA 80 MG TABLET (FP) PO SCH (21:23)
[2020-09-17] MEDS ORDERED: METHADONE HCL 40 MG DISPERSABLE TABLET ONE (05:50)
[2020-09-17] MEDS ORDERED: METHADONE HCL 10 MG TABLET ONE (05:50)
[2020-09-17] MEDS: METHADONE 80 MG, METHADONE 10 MG PO SCH (06:03)
[2020-09-17] MEDS: metFORMIN HCL 500 MG TABLET (FP) PO SCH (06:05)
[2020-09-17] MEDS: LISINOPRIL 5 MG TABLET PO SCH (11:03)
[2020-09-17] MEDS: FAMOTIDINE 20 MG TABLET PO SCH ×2 (11:03→21:12)
[2020-09-17] MEDS: hydrOXYzine PAMOATE 25 MG CAPSULE (FP) PO PRN (11:03)
[2020-09-17] MEDS: PRENATAL VITAMINS W/ FOLIC ACID TABLET (FP) PO SCH (11:03)
[2020-09-17] MEDS: CLOPIDOGREL BISULFATE 75 MG TABLET (FP) PO SCH (11:03)
[2020-09-17] MEDS: CITALOPRAM HYDROBROMIDE 20 MG TABLET PO SCH (11:03)
[2020-09-17] MEDS: ASPIRIN COATED 81 MG TABLET.EC PO SCH (11:03)
[2020-09-17] MEDS: NICOTINE 21 MG/24 HOURS TOPICAL PATCH TD SCH (11:04)
[2020-09-17] MEDS: MELATONIN 5 MG TABLETS PO SCH (21:12)
[2020-09-17] MEDS: THIAMINE HCL 100 MG TABLET (FP) PO SCH (21:12)
[2020-09-17] MEDS: ATORVASTATIN CA 80 MG TABLET (FP) PO SCH (21:12)
[2020-09-18] MEDS ORDERED: METHADONE HCL 40 MG DISPERSABLE TABLET ONE (03:12)
[2020-09-18] MEDS ORDERED: METHADONE HCL 10 MG TABLET ONE (03:12)
[2020-09-18] MEDS: METHADONE 80 MG, METHADONE 10 MG PO SCH (05:53)
[2020-09-18] MEDS: metFORMIN HCL 500 MG TABLET (FP) PO SCH (06:46)
[2020-09-18] MEDS: ACETAMINOPHEN 325 MG TABLET (FP) PO PRN (08:58)
[2020-09-18] MEDS: FAMOTIDINE 20 MG TABLET PO SCH ×2 (10:41→21:31)
[2020-09-18] MEDS: CLOPIDOGREL BISULFATE 75 MG TABLET (FP) PO SCH (10:41)
[2020-09-18] MEDS: ASPIRIN COATED 81 MG TABLET.EC PO SCH (10:41)
[2020-09-18] MEDS: CITALOPRAM HYDROBROMIDE 20 MG TABLET PO SCH (10:41)
[2020-09-18] MEDS: hydrOXYzine PAMOATE 25 MG CAPSULE (FP) PO PRN ×2 (10:41→21:31)
[2020-09-18] MEDS: NICOTINE 21 MG/24 HOURS TOPICAL PATCH TD SCH (10:41)
[2020-09-18] MEDS: PRENATAL VITAMINS W/ FOLIC ACID TABLET (FP) PO SCH (10:41)
[2020-09-18] MEDS: LISINOPRIL 5 MG TABLET PO SCH (10:41)
[2020-09-18] MEDS ORDERED: ATORVASTATIN CA 40 MG TABLET (FP) ONE (18:55)
[2020-09-18] MEDS: MELATONIN 5 MG TABLETS PO SCH (21:31)
[2020-09-18] MEDS: ATORVASTATIN CA 80 MG TABLET (FP) PO SCH (21:31)
[2020-09-18] MEDS: THIAMINE HCL 100 MG TABLET (FP) PO SCH (21:31)
[2020-09-19] MEDS ORDERED: METHADONE HCL 40 MG DISPERSABLE TABLET ONE (03:09)
[2020-09-19] MEDS ORDERED: METHADONE HCL 10 MG TABLET ONE (03:09)
[2020-09-19] MEDS: METHADONE 80 MG, METHADONE 10 MG PO SCH (06:25)
[2020-09-19] MEDS: metFORMIN HCL 500 MG TABLET (FP) PO SCH (06:26)
[2020-09-19] MEDS: PRENATAL VITAMINS W/ FOLIC ACID TABLET (FP) PO SCH (11:00)
[2020-09-19] MEDS: CLOPIDOGREL BISULFATE 75 MG TABLET (FP) PO SCH (11:00)
[2020-09-19] MEDS: FAMOTIDINE 20 MG TABLET PO SCH ×2 (11:01→21:06)
[2020-09-19] MEDS: LISINOPRIL 5 MG TABLET PO SCH (11:01)
[2020-09-19] MEDS: ASPIRIN COATED 81 MG TABLET.EC PO SCH (11:01)
[2020-09-19] MEDS: CITALOPRAM HYDROBROMIDE 20 MG TABLET PO SCH (11:01)
[2020-09-19] MEDS: NICOTINE 21 MG/24 HOURS TOPICAL PATCH TD SCH (11:02)
[2020-09-19] MEDS: MELATONIN 5 MG TABLETS PO SCH (21:05)
[2020-09-19] MEDS: THIAMINE HCL 100 MG TABLET (FP) PO SCH (21:06)
[2020-09-19] MEDS ORDERED: ATORVASTATIN CA 40 MG TABLET (FP) ONE (21:06)
[2020-09-19] MEDS: ATORVASTATIN CA 80 MG TABLET (FP) PO SCH (21:06)
[2020-09-20] MEDS ORDERED: METHADONE HCL 10 MG TABLET ONE (03:14)
[2020-09-20] MEDS ORDERED: METHADONE HCL 40 MG DISPERSABLE TABLET ONE (03:14)
[2020-09-20] MEDS: METHADONE 80 MG, METHADONE 10 MG PO SCH (06:22)
[2020-09-20] MEDS: metFORMIN HCL 500 MG TABLET (FP) PO SCH (06:23)
[2020-09-20] MEDS: CITALOPRAM HYDROBROMIDE 20 MG TABLET PO SCH (09:30)
[2020-09-20] MEDS: NICOTINE 21 MG/24 HOURS TOPICAL PATCH TD SCH (09:31)
[2020-09-20] MEDS: CLOPIDOGREL BISULFATE 75 MG TABLET (FP) PO SCH (09:31)
[2020-09-20] MEDS: LISINOPRIL 5 MG TABLET PO SCH (09:31)
[2020-09-20] MEDS: ASPIRIN COATED 81 MG TABLET.EC PO SCH (09:31)
[2020-09-20] MEDS: PRENATAL VITAMINS W/ FOLIC ACID TABLET (FP) PO SCH (09:31)
[2020-09-20] MEDS: FAMOTIDINE 20 MG TABLET PO SCH ×2 (09:31→21:27)
[2020-09-20] MEDS ORDERED: ATORVASTATIN CA 20 MG TABLET (FP) ONE (18:46)
[2020-09-20] MEDS: THIAMINE HCL 100 MG TABLET (FP) PO SCH (21:26)
[2020-09-20] MEDS: MELATONIN 5 MG TABLETS PO SCH (21:26)
[2020-09-20] MEDS: ATORVASTATIN CA 80 MG TABLET (FP) PO SCH (21:28)
[2020-09-20] MEDS: hydrOXYzine PAMOATE 25 MG CAPSULE (FP) PO PRN (21:28)
[2020-09-21] MEDS ORDERED: METHADONE HCL 40 MG DISPERSABLE TABLET ONE (03:09)
[2020-09-21] MEDS ORDERED: METHADONE HCL 10 MG TABLET ONE (03:09)
[2020-09-21] MEDS: METHADONE 80 MG, METHADONE 10 MG PO SCH (06:24)
[2020-09-21] MEDS: metFORMIN HCL 500 MG TABLET (FP) PO SCH (06:26)
[2020-09-21] MEDS: CITALOPRAM HYDROBROMIDE 20 MG TABLET PO SCH (10:48)
[2020-09-21] MEDS: PRENATAL VITAMINS W/ FOLIC ACID TABLET (FP) PO SCH (10:49)
[2020-09-21] MEDS: ASPIRIN COATED 81 MG TABLET.EC PO SCH (10:49)
[2020-09-21] MEDS: NICOTINE 21 MG/24 HOURS TOPICAL PATCH TD SCH (10:49)
[2020-09-21] MEDS: FAMOTIDINE 20 MG TABLET PO SCH ×2 (10:49→21:11)
[2020-09-21] MEDS: CLOPIDOGREL BISULFATE 75 MG TABLET (FP) PO SCH (10:49)
[2020-09-21] MEDS: LISINOPRIL 5 MG TABLET PO SCH (10:49)
[2020-09-21] MEDS: hydrOXYzine PAMOATE 25 MG CAPSULE (FP) PO PRN (10:49)
[2020-09-21] MEDS: MELATONIN 5 MG TABLETS PO SCH (21:10)
[2020-09-21] MEDS: THIAMINE HCL 100 MG TABLET (FP) PO SCH (21:10)
[2020-09-21] MEDS: ATORVASTATIN CA 80 MG TABLET (FP) PO SCH (21:11)
[2020-09-22] MEDS ORDERED: METHADONE HCL 10 MG TABLET ONE (03:30)
[2020-09-22] MEDS ORDERED: METHADONE HCL 40 MG DISPERSABLE TABLET ONE (03:30)
[2020-09-22] MEDS: METHADONE 80 MG, METHADONE 10 MG PO SCH (05:53)
[2020-09-22] MEDS: metFORMIN HCL 500 MG TABLET (FP) PO SCH (06:24)
[2020-09-22] MEDS: PRENATAL VITAMINS W/ FOLIC ACID TABLET (FP) PO SCH (10:38)
[2020-09-22] MEDS: FAMOTIDINE 20 MG TABLET PO SCH ×2 (10:39→21:11)
[2020-09-22] MEDS: ASPIRIN COATED 81 MG TABLET.EC PO SCH (10:39)
[2020-09-22] MEDS: CITALOPRAM HYDROBROMIDE 20 MG TABLET PO SCH (10:39)
[2020-09-22] MEDS: LISINOPRIL 5 MG TABLET PO SCH (10:39)
[2020-09-22] MEDS: NICOTINE 21 MG/24 HOURS TOPICAL PATCH TD SCH (10:42)
[2020-09-22] MEDS: CLOPIDOGREL BISULFATE 75 MG TABLET (FP) PO SCH (10:43)
[2020-09-22] MEDS: THIAMINE HCL 100 MG TABLET (FP) PO SCH (21:10)
[2020-09-22] MEDS: MELATONIN 5 MG TABLETS PO SCH (21:10)
[2020-09-22] MEDS: ATORVASTATIN CA 80 MG TABLET (FP) PO SCH (21:10)
[2020-09-23] MEDS ORDERED: METHADONE HCL 10 MG TABLET ONE (05:52)
[2020-09-23] MEDS ORDERED: METHADONE HCL 40 MG DISPERSABLE TABLET ONE (05:52)
[2020-09-23] MEDS: METHADONE 80 MG, METHADONE 10 MG PO SCH (06:03)
[2020-09-23] MEDS: metFORMIN HCL 500 MG TABLET (FP) PO SCH (06:04)
[2020-09-23] MEDS: ASPIRIN COATED 81 MG TABLET.EC PO SCH (10:00)
[2020-09-23] MEDS: PRENATAL VITAMINS W/ FOLIC ACID TABLET (FP) PO SCH (10:00)
[2020-09-23] MEDS: FAMOTIDINE 20 MG TABLET PO SCH ×2 (10:01→21:34)
[2020-09-23] MEDS: LISINOPRIL 5 MG TABLET PO SCH (10:01)
[2020-09-23] MEDS: CLOPIDOGREL BISULFATE 75 MG TABLET (FP) PO SCH (10:01)
[2020-09-23] MEDS: NICOTINE 21 MG/24 HOURS TOPICAL PATCH TD SCH (10:01)
[2020-09-23] MEDS: CITALOPRAM HYDROBROMIDE 20 MG TABLET PO SCH (10:01)
[2020-09-23] MEDS ORDERED: ATORVASTATIN CA 40 MG TABLET (FP) ONE (18:29)
[2020-09-23] MEDS: MELATONIN 5 MG TABLETS PO SCH (21:34)
[2020-09-23] MEDS: ATORVASTATIN CA 80 MG TABLET (FP) PO SCH (21:34)
[2020-09-23] MEDS: THIAMINE HCL 100 MG TABLET (FP) PO SCH (21:34)
[2020-09-24] MEDS ORDERED: METHADONE HCL 40 MG DISPERSABLE TABLET ONE (03:12)
[2020-09-24] MEDS ORDERED: METHADONE HCL 10 MG TABLET ONE (03:12)
[2020-09-24] MEDS: METHADONE 80 MG, METHADONE 10 MG PO SCH (06:03)
[2020-09-24] MEDS: metFORMIN HCL 500 MG TABLET (FP) PO SCH (06:05)
[2020-09-24] MEDS: PRENATAL VITAMINS W/ FOLIC ACID TABLET (FP) PO SCH (10:14)
[2020-09-24] MEDS: LISINOPRIL 5 MG TABLET PO SCH (10:14)
[2020-09-24] MEDS: CITALOPRAM HYDROBROMIDE 20 MG TABLET PO SCH (10:15)
[2020-09-24] MEDS: ASPIRIN COATED 81 MG TABLET.EC PO SCH (10:15)
[2020-09-24] MEDS: NICOTINE 21 MG/24 HOURS TOPICAL PATCH TD SCH (10:15)
[2020-09-24] MEDS: FAMOTIDINE 20 MG TABLET PO SCH ×2 (10:15→21:12)
[2020-09-24] MEDS: CLOPIDOGREL BISULFATE 75 MG TABLET (FP) PO SCH (10:15)
[2020-09-24] MEDS: THIAMINE HCL 100 MG TABLET (FP) PO SCH (21:12)
[2020-09-24] MEDS: ATORVASTATIN CA 80 MG TABLET (FP) PO SCH (21:12)
[2020-09-24] MEDS: MELATONIN 5 MG TABLETS PO SCH (21:12)
[2020-09-25] MEDS ORDERED: METHADONE HCL 40 MG DISPERSABLE TABLET ONE (03:15)
[2020-09-25] MEDS ORDERED: METHADONE HCL 10 MG TABLET ONE (03:16)
[2020-09-25] MEDS: METHADONE 80 MG, METHADONE 10 MG PO SCH (06:24)
[2020-09-25] MEDS: metFORMIN HCL 500 MG TABLET (FP) PO SCH (06:26)
[2020-09-25] MEDS: PRENATAL VITAMINS W/ FOLIC ACID TABLET (FP) PO SCH (10:44)
[2020-09-25] MEDS: NICOTINE 21 MG/24 HOURS TOPICAL PATCH TD SCH (10:45)
[2020-09-25] MEDS: FAMOTIDINE 20 MG TABLET PO SCH ×2 (10:45→21:54)
[2020-09-25] MEDS: LISINOPRIL 5 MG TABLET PO SCH (10:45)
[2020-09-25] MEDS: ASPIRIN COATED 81 MG TABLET.EC PO SCH (10:45)
[2020-09-25] MEDS: hydrOXYzine PAMOATE 25 MG CAPSULE (FP) PO PRN (10:45)
[2020-09-25] MEDS: CITALOPRAM HYDROBROMIDE 20 MG TABLET PO SCH (10:45)
[2020-09-25] MEDS: CLOPIDOGREL BISULFATE 75 MG TABLET (FP) PO SCH (10:45)
[2020-09-25] MEDS ORDERED: ATORVASTATIN CA 40 MG TABLET (FP) ONE (21:02)
[2020-09-25] MEDS: MELATONIN 5 MG TABLETS PO SCH (21:54)
[2020-09-25] MEDS: ATORVASTATIN CA 80 MG TABLET (FP) PO SCH (21:54)
[2020-09-25] MEDS: THIAMINE HCL 100 MG TABLET (FP) PO SCH (21:55)
[2020-09-26] MEDS ORDERED: METHADONE HCL 40 MG DISPERSABLE TABLET ONE (06:01)
[2020-09-26] MEDS ORDERED: METHADONE HCL 10 MG TABLET ONE (06:01)
[2020-09-26] MEDS: METHADONE 80 MG, METHADONE 10 MG PO SCH (06:02)
[2020-09-26] MEDS: metFORMIN HCL 500 MG TABLET (FP) PO SCH (06:03)
[2020-09-26] MEDS: FAMOTIDINE 20 MG TABLET PO SCH ×2 (10:06→21:15)
[2020-09-26] MEDS: LISINOPRIL 5 MG TABLET PO SCH (10:06)
[2020-09-26] MEDS: PRENATAL VITAMINS W/ FOLIC ACID TABLET (FP) PO SCH (10:06)
[2020-09-26] MEDS: CITALOPRAM HYDROBROMIDE 20 MG TABLET PO SCH (10:06)
[2020-09-26] MEDS: CLOPIDOGREL BISULFATE 75 MG TABLET (FP) PO SCH (10:07)
[2020-09-26] MEDS: NICOTINE 21 MG/24 HOURS TOPICAL PATCH TD SCH (10:07)
[2020-09-26] MEDS: ASPIRIN COATED 81 MG TABLET.EC PO SCH (10:08)
[2020-09-26] MEDS ORDERED: ATORVASTATIN CA 40 MG TABLET (FP) ONE (19:25)
[2020-09-26] MEDS: MELATONIN 5 MG TABLETS PO SCH (21:15)
[2020-09-26] MEDS: THIAMINE HCL 100 MG TABLET (FP) PO SCH (21:15)
[2020-09-26] MEDS: ATORVASTATIN CA 80 MG TABLET (FP) PO SCH (21:16)
[2020-09-27] MEDS ORDERED: METHADONE HCL 40 MG DISPERSABLE TABLET ONE (03:19)
[2020-09-27] MEDS ORDERED: METHADONE HCL 10 MG TABLET ONE (03:20)
[2020-09-27] MEDS: METHADONE 80 MG, METHADONE 10 MG PO SCH (06:04)
[2020-09-27] MEDS: metFORMIN HCL 500 MG TABLET (FP) PO SCH (06:04)
[2020-09-27] MEDS: FAMOTIDINE 20 MG TABLET PO SCH ×2 (10:09→21:47)
[2020-09-27] MEDS: PRENATAL VITAMINS W/ FOLIC ACID TABLET (FP) PO SCH (10:09)
[2020-09-27] MEDS: LISINOPRIL 5 MG TABLET PO SCH (10:09)
[2020-09-27] MEDS: CLOPIDOGREL BISULFATE 75 MG TABLET (FP) PO SCH (10:09)
[2020-09-27] MEDS: CITALOPRAM HYDROBROMIDE 20 MG TABLET PO SCH (10:09)
[2020-09-27] MEDS: NICOTINE 21 MG/24 HOURS TOPICAL PATCH TD SCH (10:10)
[2020-09-27] MEDS: ASPIRIN COATED 81 MG TABLET.EC PO SCH (10:11)
[2020-09-27] MEDS ORDERED: ATORVASTATIN CA 20 MG TABLET (FP) ONE (19:23)
[2020-09-27] MEDS: THIAMINE HCL 100 MG TABLET (FP) PO SCH (21:46)
[2020-09-27] MEDS: MELATONIN 5 MG TABLETS PO SCH (21:46)
[2020-09-27] MEDS: ATORVASTATIN CA 80 MG TABLET (FP) PO SCH (21:47)
[2020-09-27] MEDS: hydrOXYzine PAMOATE 25 MG CAPSULE (FP) PO PRN (21:47)
[2020-09-28] MEDS ORDERED: METHADONE HCL 40 MG DISPERSABLE TABLET ONE (03:15)
[2020-09-28] MEDS ORDERED: METHADONE HCL 10 MG TABLET ONE (03:16)
[2020-09-28] MEDS: METHADONE 80 MG, METHADONE 10 MG PO SCH (06:11)
[2020-09-28] MEDS: metFORMIN HCL 500 MG TABLET (FP) PO SCH (06:12)
[2020-09-28] MEDS: CLOPIDOGREL BISULFATE 75 MG TABLET (FP) PO SCH (10:01)
[2020-09-28] MEDS: LISINOPRIL 5 MG TABLET PO SCH (10:01)
[2020-09-28] MEDS: PRENATAL VITAMINS W/ FOLIC ACID TABLET (FP) PO SCH (10:01)
[2020-09-28] MEDS: CITALOPRAM HYDROBROMIDE 20 MG TABLET PO SCH (10:01)
[2020-09-28] MEDS: ASPIRIN COATED 81 MG TABLET.EC PO SCH (10:01)
[2020-09-28] MEDS: NICOTINE 21 MG/24 HOURS TOPICAL PATCH TD SCH (10:02)
[2020-09-28] MEDS: FAMOTIDINE 20 MG TABLET PO SCH ×2 (10:02→21:36)
[2020-09-28] MEDS: MELATONIN 5 MG TABLETS PO SCH (21:35)
[2020-09-28] MEDS: ATORVASTATIN CA 80 MG TABLET (FP) PO SCH (21:35)
[2020-09-28] MEDS: THIAMINE HCL 100 MG TABLET (FP) PO SCH (21:35)
[2020-09-29] MEDS ORDERED: METHADONE HCL 40 MG DISPERSABLE TABLET ONE (03:08)
[2020-09-29] MEDS ORDERED: METHADONE HCL 10 MG TABLET ONE (03:09)
[2020-09-29] MEDS: METHADONE 80 MG, METHADONE 10 MG PO SCH (06:02)
[2020-09-29] MEDS: metFORMIN HCL 500 MG TABLET (FP) PO SCH (06:04)
[2020-09-29] MEDS: PRENATAL VITAMINS W/ FOLIC ACID TABLET (FP) PO SCH (10:06)
[2020-09-29] MEDS: CLOPIDOGREL BISULFATE 75 MG TABLET (FP) PO SCH (10:07)
[2020-09-29] MEDS: ASPIRIN COATED 81 MG TABLET.EC PO SCH (10:07)
[2020-09-29] MEDS: CITALOPRAM HYDROBROMIDE 20 MG TABLET PO SCH (10:07)
[2020-09-29] MEDS: LISINOPRIL 5 MG TABLET PO SCH (10:07)
[2020-09-29] MEDS: FAMOTIDINE 20 MG TABLET PO SCH ×2 (10:07→21:18)
[2020-09-29] MEDS: NICOTINE 21 MG/24 HOURS TOPICAL PATCH TD SCH (10:08)
[2020-09-29] MEDS ORDERED: ATORVASTATIN CA 40 MG TABLET (FP) ONE (19:28)
[2020-09-29] MEDS: THIAMINE HCL 100 MG TABLET (FP) PO SCH (21:17)
[2020-09-29] MEDS: ATORVASTATIN CA 80 MG TABLET (FP) PO SCH (21:17)
[2020-09-29] MEDS: MELATONIN 5 MG TABLETS PO SCH (21:17)
[2020-09-30] MEDS ORDERED: METHADONE HCL 10 MG TABLET ONE (05:47)
[2020-09-30] MEDS ORDERED: METHADONE HCL 40 MG DISPERSABLE TABLET ONE (05:47)
[2020-09-30] MEDS: METHADONE 80 MG, METHADONE 10 MG PO SCH (06:11)
[2020-09-30] MEDS: metFORMIN HCL 500 MG TABLET (FP) PO SCH (06:13)
[2020-09-30] MEDS: CITALOPRAM HYDROBROMIDE 20 MG TABLET PO SCH (09:37)
[2020-09-30] MEDS: CLOPIDOGREL BISULFATE 75 MG TABLET (FP) PO SCH (09:37)
[2020-09-30] MEDS: ASPIRIN COATED 81 MG TABLET.EC PO SCH (09:37)
[2020-09-30] MEDS: NICOTINE 21 MG/24 HOURS TOPICAL PATCH TD SCH (09:37)
[2020-09-30] MEDS: LISINOPRIL 5 MG TABLET PO SCH (09:37)
[2020-09-30] MEDS: PRENATAL VITAMINS W/ FOLIC ACID TABLET (FP) PO SCH (09:37)
[2020-09-30] MEDS: FAMOTIDINE 20 MG TABLET PO SCH ×2 (09:37→21:08)
[2020-09-30] MEDS: ATORVASTATIN CA 80 MG TABLET (FP) PO SCH (21:08)
[2020-09-30] MEDS: MELATONIN 5 MG TABLETS PO SCH (21:08)
[2020-09-30] MEDS: THIAMINE HCL 100 MG TABLET (FP) PO SCH (21:08)
[2020-10-01] MEDS ORDERED: METHADONE HCL 40 MG DISPERSABLE TABLET ONE (03:17)
[2020-10-01] MEDS ORDERED: METHADONE HCL 10 MG TABLET ONE (03:18)
[2020-10-01] MEDS: METHADONE 80 MG, METHADONE 10 MG PO SCH (06:17)
[2020-10-01] MEDS: metFORMIN HCL 500 MG TABLET (FP) PO SCH (06:18)
[2020-10-01] MEDS: CITALOPRAM HYDROBROMIDE 20 MG TABLET PO SCH (10:08)
[2020-10-01] MEDS: PRENATAL VITAMINS W/ FOLIC ACID TABLET (FP) PO SCH (10:08)
[2020-10-01] MEDS: LISINOPRIL 5 MG TABLET PO SCH (10:08)
[2020-10-01] MEDS: NICOTINE 21 MG/24 HOURS TOPICAL PATCH TD SCH (10:08)
[2020-10-01] MEDS: FAMOTIDINE 20 MG TABLET PO SCH ×2 (10:08→21:15)
[2020-10-01] MEDS: CLOPIDOGREL BISULFATE 75 MG TABLET (FP) PO SCH (10:08)
[2020-10-01] MEDS: ASPIRIN COATED 81 MG TABLET.EC PO SCH (10:08)
[2020-10-01] MEDS: MELATONIN 5 MG TABLETS PO SCH (21:15)
[2020-10-01] MEDS: THIAMINE HCL 100 MG TABLET (FP) PO SCH (21:15)
[2020-10-01] MEDS: ATORVASTATIN CA 80 MG TABLET (FP) PO SCH (21:15)
[2020-10-02] MEDS ORDERED: METHADONE HCL 40 MG DISPERSABLE TABLET ONE (04:00)
[2020-10-02] MEDS ORDERED: METHADONE HCL 10 MG TABLET ONE (04:00)
[2020-10-02] MEDS: METHADONE 80 MG, METHADONE 10 MG PO SCH (06:25)
[2020-10-02] MEDS: metFORMIN HCL 500 MG TABLET (FP) PO SCH (06:25)
[2020-10-02 06:31] VITALS: TEMP 97.5
[2020-10-02] MEDS: LISINOPRIL 5 MG TABLET PO SCH (09:38)
[2020-10-02] MEDS: ASPIRIN COATED 81 MG TABLET.EC PO SCH (09:38)
[2020-10-02] MEDS: CITALOPRAM HYDROBROMIDE 20 MG TABLET PO SCH (09:38)
[2020-10-02] MEDS: FAMOTIDINE 20 MG TABLET PO SCH (09:38)
[2020-10-02] MEDS: PRENATAL VITAMINS W/ FOLIC ACID TABLET (FP) PO SCH (09:38)
[2020-10-02] MEDS: CLOPIDOGREL BISULFATE 75 MG TABLET (FP) PO SCH (09:38)
[2020-10-02] MEDS: NICOTINE 21 MG/24 HOURS TOPICAL PATCH TD SCH (09:38)
[2020-10-02] MEDS ORDERED: MASKS NR ONE (10:06)
[2020-10-02 10:24] VITALS: BP 121/66; PULSE 103
== END 2020-10-02 10:16 | disposition home or self-care (01) | DRG 772 ==
LOC: YASAS 11:39 → Y3W 11:40
PROVIDERS: ADMIT Allergy & Immunology; ATTEND Allergy & Immunology
PROC: HZ42ZZZ Group Counseling for Substance Abuse Treatment, Cognitive-Behavioral (ICD-10-PCS; principal; 2020-09-04)
DX: F10.20 Alcohol dependence, uncomplicated (principal); F14.20 Cocaine dependence, uncomplicated; F11.20 Opioid dependence, uncomplicated; F40.00 Agoraphobia, unspecified; I25.10 Atherosclerotic heart disease of native coronary artery without angina pectoris; I10 Essential (primary) hypertension; Z95.1 Presence of aortocoronary bypass graft; Z79.02 Long term (current) use of antithrombotics/antiplatelets; R73.9 Hyperglycemia, unspecified; E66.9 Obesity, unspecified; Z68.34 Body mass index [BMI] 34.0-34.9, adult; Z91.013 Allergy to seafood
CPT/HCPCS: 82962; 83036; C9803; U0003